=== PATIENT | female | born 1975 | race Caucasian/White ===

== ENCOUNTER 2019-11-30 09:17 | Outpatient (CLI) | payer MEDICARE, MEDICAID, SELFPAY ==
--- NOTE | 2019-11-30 09:36 | NM_ITS ---
WS: [id number] NUCLEAR MEDICINE THYROID UPTAKE AND SCAN HISTORY: SUBCLINICAL HYPERTHYROIDISM COMPARISON: None available. Radionucleotide: 133.6 uCi Iodine-123 sodium iodide capsule. Oral ingestion. Imaging performed at 24 hours post ingestion of capsule. Marker placed over the chin and suprasternal notch. Increased uptake throughout the large portion of the RIGHT thyroid. Most significant in the mid and l ower portion of the RIGHT thyroid lobe. This is asymmetric to the LEFT gland. Thyroid uptake at 24 hours: 24.4%. (Normal uptake at 24 hours 10-30%). NM/NM thyroid uptake multi [id number] IMPRESSION: 1. Normal thyroid uptake at 24.4%. 2. Suspicious for hyperfunctioning RIGHT thyroid nodule. Consider follow-up ul trasound for evaluation and characterization of a possible RIGHT thyroid nodule .
== END 2019-11-30 09:18 | disposition home or self-care (01) ==
LOC: RAD 09:23
PROVIDERS: Family Provider Family Medicine; PCP Family Medicine; Visit Provider Family Medicine
DX: E05.90 Thyrotoxicosis, unspecified without thyrotoxic crisis or storm (principal)
CPT/HCPCS: 78014; A9516

== ENCOUNTER 2019-11-30 13:39 | Outpatient (CLI) | payer MEDICARE, MEDICAID, SELFPAY ==
--- NOTE | 2019-11-30 13:53 | MM_ITS ---
WS: [id number] SCREENING DIGITAL MAMMOGRAM WITH CAD HISTORY: SCREENING COMPARISON: None available. Bilateral CC and MLO views submitted. Computer aided detection analyzed. Breast composition: The breasts are heterogeneously dense, which may obscure small masses. Irregular cluster of calcifications in the lateral LEFT breast near 3:00. These calcifications are partially ob scured need further evaluation. There are additional calcifications which are more benign within each breast. LEFT BREAST: Magnification views of suspicious calcification CC and MLO. True ML. Views MM/[place] [id number] IMPRESSION: BI-RADS: 0-Incomplete: Need additional imaging evaluation FOLLOW UP: Need Additional Imaging
== END 2019-11-30 13:40 | disposition home or self-care (01) ==
PROVIDERS: Family Provider Family Medicine; PCP Family Medicine; Visit Provider Family Medicine
DX: Z12.31 Encounter for screening mammogram for malignant neoplasm of breast (principal)
CPT/HCPCS: 77067

== ENCOUNTER 2019-12-07 09:33 | Outpatient (CLI) | payer MEDICARE, MEDICAID, SELFPAY ==
--- NOTE | 2019-12-07 10:47 | MM_ITS ---
WS: [id number] ADDITIONAL IMAGING LEFT DIGITAL MAMMOGRAM WITH CAD HISTORY: LT BREAST CALCIFICATION COMPARISON: 11/30/2019 Technique: ML view. Magnification views LEFT CC and MLO. Calcifications persist in the posterior LEFT breast at 12 and 3:00. Calcifications are more scattered than clustered. Calcifications are predominantly smooth and round. Favor these are probably benign b ut need to be evaluated in 6 months to document stability. MM/[place] [id number] IMPRESSION: BI-RADS: 3-Probably Benign FOLLOW UP: 6 Month Follow-up Follow-up LEFT breast imaging in 6 months recommended with magnification views to document stability.
== END 2019-12-07 09:34 | disposition home or self-care (01) ==
LOC: RADSHAW 09:38
PROVIDERS: Family Provider Family Medicine; PCP Family Medicine; Visit Provider Family Medicine
DX: R92.1 Mammographic calcification found on diagnostic imaging of breast (principal)
CPT/HCPCS: 77065

== ENCOUNTER 2020-01-04 12:23 | Emergency (ER) | payer MEDICARE, MEDICAID, SELFPAY ==
[2020-01-04 12:25] VITALS: BMI 27.3
[2020-01-04 12:30] VITALS: BP 158/107; PULSE 113; RESP 18; TEMP 36.9; O2SAT 94
== END 2020-01-04 15:24 | disposition left against medical advice (07) ==
LOC: ER 13:19
PROVIDERS: Emergency Provider Nurse Practitioner Family; Family Provider Family Medicine; PCP Family Medicine
DX: Z53.21 Procedure and treatment not carried out due to patient leaving prior to being seen by health care provider (principal)
CPT/HCPCS: 99281

== ENCOUNTER → 2020-02-17 10:31 | Outpatient (BNVA) | payer MEDICARE, MEDICAID, SELFPAY | PROVIDERS: Family Provider Family Medicine; PCP Family Medicine; Visit Provider Psychiatry & Neurology Psychiatry | DX: F33.41 Major depressive disorder, recurrent, in partial remission (principal); F43.12 Post-traumatic stress disorder, chronic; F15.21 Other stimulant dependence, in remission | CPT/HCPCS: 99213 ==

== ENCOUNTER → 2020-04-26 08:35 | Outpatient (BNVA) | payer MEDICARE, MEDICAID, SELFPAY | PROVIDERS: Family Provider Family Medicine; PCP Family Medicine; Visit Provider Psychiatry & Neurology Psychiatry | DX: F15.21 Other stimulant dependence, in remission (principal); F33.41 Major depressive disorder, recurrent, in partial remission; F43.12 Post-traumatic stress disorder, chronic | CPT/HCPCS: 99213 ==

== ENCOUNTER 2020-07-21 16:03 | Emergency (ER) | payer MEDICARE, MEDICAID, SELFPAY ==
[2020-07-21 16:23] VITALS: RESP 18
[2020-07-21 16:24] VITALS: BP 157/96; PULSE 90; RESP 14; TEMP 36.8; O2SAT 96
--- NOTE | 2020-07-21 16:35 | W.ED.NECK ---
HPI - Neck Pain/Injury General: Chief Complaint: Neck Pain/Injury Stated Complaint: neck pain Time Seen by Provider: 07/21/20 16:26 History of Present Illness: HPI Narrative: Patient woke up 2 nights ago with this spasm. Has history of 4 neck surgeries. Has good range of motion of her neck MD complaint: neck pain Onset (ago): day(s) Place: home Associated symptoms: Denies headache(s) or nausea Review of Systems Const: Denies: fever(s), chills or body aches Eyes: Denies: change in vision or blurry vision ENMT: Denies: throat pain or nasal congestion Card: Denies: chest pain or dyspnea on exertion Resp: Denies: dyspnea, productive cough or non-productive cough GI: Denies: abdominal pain, nausea or vomiting Musc: Reports: neck pain (Hurts in the right side feels like spasms feels tight denies any injury); Denies: extremity pain Skin/Breast: Denies: rash Neuro: Denies: headache(s) Psych: Denies: anxiety or depression Bhavin/Lymph: Denies: easy bruising PFSH ED PFSH: Social History Smoking and tobacco status: current every day smoker Physical Exam Const: COMMON NORMALS: no acute distress, average body habitus and patient oriented x3 HENMT: COMMON NORMALS: normocephalic HEAD & SCALP: normal to inspection and normocephalic FACE & SINUS: normal facial exam Eye: COMMON NORMALS: conjunctivae normal GENERAL EYE: appearance normal, both eyes and all related structures CONJUNCTIVA: Yes conjunctivae normal Neck/C-Spine: COMMON NORMALS: no JVD GENERAL: Yes other (Muscles tight on right side or trapezius attaches not spasming but does have some inflammation has good range of motion neck and arms no tingling or numbness no on the lower extremities) Chest: COMMONS NORMALS: normal inspection of the chest Resp: COMMON NORMALS: normal respiratory effort and clear to auscultation bilaterally AUSCULTATION: clear to auscultation bilaterally Cardio: COMMON NORMALS: no JVD, regular rate and regular rhythm RATE: regular rate RHYTHM: regular rhythm GI: COMMON NORMALS: Normal to inspection, nondistended, normoactive bowel sounds present Extremity: COMMON NORMALS: normal to inspection and full ROM Neuro: COMMON NORMALS: patient oriented x3 Course Vital Signs: Vital signs: Vital Signs Temperature 98.2 F 07/21/20 16:24 Pulse Rate 90 07/21/20 16:24 Respiratory Rate 14 07/21/20 16:24 Blood Pressure 157/96 07/21/20 16:24 Pulse Oximetry 96 07/21/20 16:24 Discharge Plan Discharge Patient Disposition: Home Clinical Impression: Torticollis Condition: Stable Prescriptions: New cyclobenzaprine 5 mg tablet 5 mg PO TID PRN (Reason: muscle spasm) Qty: 10 RF: 0 tramadol 50 mg tablet 50 mg PO TID PRN (Reason: pain) Qty: 10 RF: 0 No Action naproxen sodium [Aleve] 220 mg capsule 220 mg PO BID PRN (Reason: pain) RF: 0 prazosin 5 mg capsule 5 mg PO .HS Qty: 30 RF: 2 fluoxetine [Prozac] 20 mg capsule 60 mg PO DAILY Qty: 90 RF: 2 hydroxyzine HCl 50 mg tablet 50 mg PO TID Qty: 90 RF: 2 Belsomra 10 mg tablet 10 mg PO .HS Qty: 30 RF: 2 buspirone 10 mg tablet 20 mg PO BID Qty: 60 RF: 2 Discharge Orders: Discharge Order (Routine); Ordered 07/21/20 Ordered By: Solo Roper Referrals: Trevor Dean MD [Primary Care Provider] - Discharge Diet: Usual diet Discharge Activity: Increase activity as tolerated Patient Instructions: Muscle Spasm (ED) Activity Restrictions/Additional Instructions: Follow-up with medical provider as directed. Take medications as prescribed. Return to the ER or your medical provider if condition worsens. Please read and understand discharge instructions. If any questions ask please. Use moist heat and ice. Try get a massage done. 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
== END 2020-07-21 16:50 | disposition home or self-care (01) ==
PROVIDERS: Emergency Provider Nurse Practitioner Family; PCP Family Medicine
DX: M43.6 Torticollis (principal); F17.210 Nicotine dependence, cigarettes, uncomplicated
CPT/HCPCS: 12345; 99281; 99282

== ENCOUNTER 2020-07-23 19:11 | Emergency (ER) | payer MEDICARE, MEDICAID, SELFPAY ==
[2020-07-23 19:29] VITALS: BP 155/101; PULSE 86; RESP 17; TEMP 36.7; O2SAT 97; BMI 25.1
[2020-07-23 21:49] VITALS: BP 159/110; RESP 18
--- NOTE | 2020-07-23 21:58 | XR_ITS ---
WS: [id number] CERVICAL SPINE 3 VIEWS HISTORY: neck pain COMPARISON: 02/12/2017 There is extensive anterior cervical fusion and posterior cervical fusion hardware throughout the cer vical spine beginning at the C3 level through C7. No recent radiographs to evaluate for stability. Th e hardware appears intact. No lucency around the screws. Interbody spacers from C3-4 through C6-7. Soft tissues are normal. XR/XR cervical spine 3V* [id number] IMPRESSION: Extensive anterior and posterior cervical fusion hardware. No apparent complica tions.
[2020-07-23 22:10] LABS: Basophils # 0.1 10^3/uL (0.0-0.1); Basophils % 0.8 %; Eosinophils # 0.8 10^3/uL (0.0-0.8); Eosinophils % 5.8 %; Hematocrit 45.1 % (37.0-47.0); Hemoglobin 14.8 g/dL (11.5-15.3); Lymphocytes # 3.2 10^3/uL (0.8-4.8); Lymphocytes % 24.1 %; Mean Corpuscular HGB Conc 32.8 g/dL (30.0-36.0); Mean Corpuscular Hemoglobin 29.1 pg (28.0-34.0); Mean Corpuscular Volume 88.6 fL (81-99); Mean Platelet Volume 10.7 fL (7.4-10.4); Monocytes % 7.7 %; Neutrophils # 8.14 10^3/uL (1.8-7.7); Neutrophils % 61.1 %; Nucleated Red Blood Cells % 0 %; Platelet Count 339 10^3/cmm (130-400); Red Blood Count 5.09 10^6/uL (4.1-5.3); Red Cell Distribution Width 13.6 % (12.1-15.1); White Blood Count 13.3 10^3/uL (4.0-10.0)
[2020-07-23 22:35] LABS: Alanine Aminotransferase 23 U/L (0-33); Albumin Level 4.4 g/dL (3.5-5.2); Alkaline Phosphatase 70 IU/L (35-105); Anion Gap 13.7 (5-19); Aspartate Amino Transferase 15 U/L (0-32); Blood Urea Nitrogen 16 mg/dL (6-20); C Reactive Protein 0.5 mg/L (0.0-4.9); Calcium 8.9 mg/dL (8.5-10.5); Carbon Dioxide 28 mmol/L (22-29); Chloride 102 mmol/L (98-107); Globulin 2.7 g/dL (1.3-4.6); Glomerular Filtration Rate 76.9 mL/min (90-130); Glucose 94 mg/dL (65-115); Osmolality Calculated 284 mOsm/kg (285-295); Potassium 4.7 mmol/L (3.5-5.1); Sodium 139 mmol/L (136-145); Total Bilirubin 0.2 mg/dL (0.15-1.2); Total Protein 7.1 g/dL (6.6-8.7)
[2020-07-23 22:47] VITALS: RESP 18
[2020-07-23] MEDS: fentaNYL 50 mcg/mL INJ 2mL IVP (22:47)
[2020-07-23] MEDS: ketorolac 30 mg/mL INJ IVP (22:47)
[2020-07-23] MEDS: dexamethasone 4 mg/mL INJ 8 MG IVP (22:47)
[2020-07-23] MEDS: metoclopramide 5 mg/mL SDV 2 mL 10 MG IVP (22:48)
[2020-07-23 23:34] VITALS: BP 130/87; O2SAT 95
--- NOTE | 2020-07-24 00:25 | W.ED.NECK ---
HPI - Neck Pain/Injury General: Chief Complaint: Neck Pain/Injury Stated Complaint: neck pain/ was here thurs/ had neck surg Time Seen by Provider: 07/23/20 21:04 History of Present Illness: HPI Narrative: 45-year-old female with a history of cervical fusion last year. She presents with pain at the superior portion of her neck above her incision for the past several days. She was seen a couple of days ago and given medication which she says has not really helped. She states it has caused a significant headache, which she gets from time to time, but not this severe. She notes radiation of the pain into her right upper extremity, with some numbness and tingling to her pinky. She denies any fever. No chills or sweats at night. MD complaint: neck pain Onset (ago): day(s) Place: home Radiation: upper back and right upper extremity Severity: moderate Associated symptoms: Reports headache(s); Denies dizziness or nausea Review of Systems Const: Denies: fever(s) or chills Eyes: Reports: blurry vision; Denies: change in vision ENMT: Denies: swelling of lips/tongue, change in hearing, epistaxis or sinus pain Card: Denies: chest pain, palpitations or irregular heart rhythm Resp: Denies: dyspnea, productive cough, non-productive cough or wheezing GI: Denies: abdominal pain, nausea, vomiting or rectal pain : Denies: dysuria or hematuria Musc: Denies: neck pain or back pain Skin/Breast: Denies: rash or erythema Neuro: Reports: headache(s); Denies: dizziness, vertigo or confusion Psych: Denies: anxiety PFS ED PFSH: Social History Smoking and tobacco status: current every day smoker Physical Exam Const: GENERAL APPEARANCE: well developed ORIENTATION/CONSCIOUSNESS: Yes oriented to person, Yes oriented to place and Yes oriented to time HENMT: COMMON NORMALS: normocephalic, external ears normal and Normal external nose present HEAD & SCALP: normocephalic FACE & SINUS: normal facial exam NOSE: Normal external nose present and No nasal discharge present EXTERNAL EAR: Yes external ears normal Eye: COMMON NORMALS: Equal, round and reactive pupils present, EOMs intact bilaterally and conjunctivae normal EYELID: eyelids normal CONJUNCTIVA: Yes conjunctivae normal PUPIL: Yes Equal, round and reactive pupils present Neck/C-Spine: COMMON NORMALS: full ROM GENERAL: No tracheal deviation CERVICAL SPINE: Yes Cervical spine tenderness and Yes other (Some paravertebral tenderness on the right at C1-C2-C3. This is above her incision. No incisional tenderness. No midline tenderness.) Chest: COMMONS NORMALS: normal inspection of the chest CHEST: No tenderness Resp: COMMON NORMALS: clear to auscultation bilaterally EFFORT & INSPECTION: No tachypneic, No respiratory distress, No retractions, No uses accessory muscles and No tracheal deviation AUSCULTATION: clear to auscultation bilaterally, no rhonchi, no wheezes and lung sounds not diminished Cardio: COMMON NORMALS: regular rate and regular rhythm RATE: regular rate RHYTHM: regular rhythm HEART SOUNDS: no murmurs PERIPHERAL PULSES: radial pulses present GI: INSPECTION: No abdominal distension AUSCULTATION: No Hyperactive bowel sounds present and No Hypoactive bowel sounds present PALPATION: No Guarding due to palpation present (GI) and No Rigid due to palpation PERCUSSION: no dullness to percussion and no tympanic to percussion Neuro: SENSORIUM/ORIENTATION: Yes oriented to person, Yes oriented to place and Yes oriented to time Psych: COMMON NORMALS: mental status grossly normal Skin: COMMON NORMALS: no rashes or lesions noted GENERAL SKIN EXAM: no rashes or lesions noted Course Vital Signs: Vital signs: Vital Signs Temperature 98.0 F 07/23/20 19:29 Pulse Rate 86 07/23/20 19:29 Respiratory Rate 18 07/23/20 22:47 Blood Pressure 130/87 07/23/20 23:34 Pulse Oximetry 95 07/24/20 00:32 MDM - Neck Pain/Injury MDM Narrative: Medical decision making narrative: White blood cell count is mildly elevated, but the CRP is negative. No signs of infection by exam. X-ray reveals intact hardware. Lab Data: Attestation: I reviewed the patient's lab results. Labs: Lab Results 07/23/20 07/23/20 Range/Units 22:05 22:05 WBC 13.3 H (4.0-10.0) 10^3/ uL RBC 5.09 (4.1-5.3) 10^6/u L Hgb 14.8 (11.5-15.3) g/dL Hct 45.1 (37.0-47.0) % MCV 88.6 (81-99) fL MCH 29.1 (28.0-34.0) pg MCHC 32.8 (30.0-36.0) g/dL RDW 13.6 (12.1-15.1) % Plt Count 339 (130-400) 10^3/c mm MPV 10.7 H (7.4-10.4) fL Neut % (Auto) 61.1 % Lymph % (Auto) 24.1 % [place] % (Auto) 7.7 % Eos % (Auto) 5.8 % Baso % (Auto) 0.8 % Neut # (Auto) 8.14 H (1.8-7.7) 10^3/u L Lymph # (Auto) 3.2 (0.8-4.8) 10^3/u L [place] # (Auto) 1.0 H (0.2-0.9) 10^3/u L Eos # (Auto) 0.8 (0.0-0.8) 10^3/u L Baso # (Auto) 0.1 (0.0-0.1) 10^3/u L Nucleated RBC % (a uto) 0 % Nucleated RBCs # 0.0 /100WBC Sodium 139 (136-145) mmol/L Potassium 4.7 (3.5-5.1) mmol/L Chloride 102 (98-107) mmol/L Carbon Dioxide 28 (22-29) mmol/L Anion Gap 13.7 (5-19) BUN 16 (6-20) mg/dL Creatinine 0.8 (0.5-0.9) mg/dL GFR Calculation 76.9 L (90-130) mL/min Glucose 94 (65-115) mg/dL Calculated Osmolal ity 284 L (285-295) mOsm/k g Calcium 8.9 (8.5-10.5) mg/dL Total Bilirubin 0.2 (0.15-1.2) mg/dL AST 15 (0-32) U/L ALT 23 (0-33) U/L Alkaline Phosphata se 70 (35-105) IU/L C-Reactive Protein 0.5 (0.0-4.9) mg/L Total Protein 7.1 (6.6-8.7) g/dL Albumin 4.4 (3.5-5.2) g/dL Globulin 2.7 (1.3-4.6) g/dL Discharge Plan Discharge Patient Disposition: Home Clinical Impression: Cervical radiculopathy Condition: Stable Prescriptions: [place] 5-325 mg tablet 1 tab PO Q6H PRN (Reason: pain) Qty: 10 RF: 0 Medrol (Ba) 4 mg tablets,dose pack See Rx Instructions .ROUTE .COMPLEX Qty: 21 RF: 0 No Action naproxen sodium [Aleve] 220 mg capsule 220 mg PO BID PRN (Reason: pain) RF: 0 prazosin 5 mg capsule 5 mg PO .HS Qty: 30 RF: 2 fluoxetine [Prozac] 20 mg capsule 60 mg PO DAILY Qty: 90 RF: 2 hydroxyzine HCl 50 mg tablet 50 mg PO TID Qty: 90 RF: 2 Belsomra 10 mg tablet 10 mg PO .HS Qty: 30 RF: 2 buspirone 10 mg tablet 20 mg PO BID Qty: 60 RF: 2 cyclobenzaprine 5 mg tablet 5 mg PO TID PRN (Reason: muscle spasm) Qty: 10 RF: 0 tramadol 50 mg tablet 50 mg PO TID PRN (Reason: pain) Qty: 10 RF: 0 Referrals: Trevor Dean MD [Primary Care Provider] - 4-7 days Discharge Diet: Advance as tolerated Discharge Activity: Increase activity as tolerated Patient Instructions: Cervical Radiculopathy (ED) Activity Restrictions/Additional Instructions: Return for fever greater than 100, worsening pain despite treatment, progressive weakness, other concerning symptoms. Discharge Date/Time: 07/24/20 00:41 Coding Level of Care Code ED General Office Worker for Sachin Lozada
[2020-07-24 00:32] VITALS: O2SAT 95
[2020-07-24 00:34] VITALS: BP 142/104
== END 2020-07-24 00:41 | disposition home or self-care (01) ==
PROVIDERS: Emergency Provider Emergency Medicine; PCP Family Medicine
DX: M54.12 Radiculopathy, cervical region (principal); F17.210 Nicotine dependence, cigarettes, uncomplicated
CPT/HCPCS: 12345; 72040; 80053; 85025; 86140; 96374; 96375; 99281; 99283; J1100; J1885; J2765; J3010

== ENCOUNTER → 2020-08-24 07:46 | Outpatient (BNVA) | payer MEDICARE, MEDICAID, SELFPAY | PROVIDERS: PCP Family Medicine; Visit Provider Psychiatry & Neurology Psychiatry | DX: F15.21 Other stimulant dependence, in remission (principal); F33.41 Major depressive disorder, recurrent, in partial remission; F43.12 Post-traumatic stress disorder, chronic | CPT/HCPCS: 99213 ==

== ENCOUNTER → 2020-12-27 09:37 | Outpatient (BNVA) | payer MEDICARE, MEDICAID, SELFPAY | PROVIDERS: PCP Family Medicine; Visit Provider Psychiatry & Neurology Psychiatry | DX: F43.12 Post-traumatic stress disorder, chronic (principal); F15.21 Other stimulant dependence, in remission; F33.41 Major depressive disorder, recurrent, in partial remission | CPT/HCPCS: 99213 ==

== ENCOUNTER → 2021-01-12 12:53 | Outpatient (BNVA) | payer MEDICARE, MEDICAID, SELFPAY | PROVIDERS: PCP Family Medicine; Visit Provider Podiatrist Foot & Ankle Surgery | DX: M20.41 Other hammer toe(s) (acquired), right foot (principal); M79.671 Pain in right foot | CPT/HCPCS: 73630 ==

== ENCOUNTER → 2021-03-09 13:15 | Outpatient (BNVA) | payer MEDICARE, MEDICAID, SELFPAY | PROVIDERS: PCP Family Medicine; Visit Provider Nurse Practitioner | DX: N39.0 Urinary tract infection, site not specified (principal) | CPT/HCPCS: 81000 ==

== ENCOUNTER → 2021-03-17 11:22 | Outpatient (BNVA) | payer MEDICARE, MEDICAID, SELFPAY | PROVIDERS: PCP Family Medicine; Visit Provider Podiatrist Foot & Ankle Surgery | DX: Z01.812 Encounter for preprocedural laboratory examination (principal); Z20.822 Contact with and (suspected) exposure to COVID-19 | CPT/HCPCS: 87635 ==

== ENCOUNTER 2021-03-24 05:35 | Day surgery (SDC) | payer MEDICARE, MEDICAID, SELFPAY ==
[2021-03-23 15:59] VITALS: BMI 27.8
[2021-03-24] VITALS (8 sets, daily range): BP systolic 137–193; BP diastolic 92–111; PULSE 72–84; RESP 16–26; TEMP 36.6–36.8; O2SAT 94–96
--- NOTE | 2021-03-24 | SCC_ITS ---
Procedure Done: Tailor's bunionectomy right foot CPT code 80026. 49 seconds of fluoroscopic guidance, for a cumulative dose of 0.62 mGy, was provided to Dr. Yoder by the radiology department. C-arm images of the RIGHT foot were saved for the patient's permanent record. [facility]
--- NOTE | 2021-03-24 06:33 | P.OP_ITS ---
Operative Report Date of procedure: March 24, 2021 Pre-op Diagnosis: Tailor's bunion and hammertoe right foot Post-op diagnosis: same Procedure Done: Tailor's bunionectomy right foot CPT code 18455. Right fifth hammertoe correction CPT code 52483 Implants: [place] snap off screws 13 mm and 14 mm, 3-0 Vicryl, 4-0 Vicryl and 4- 0 nylon Surgeon: Vishal Yoder D.P.M. Park Activities Coordinator: Abhi Anesthesia: MAC Estimated blood loss: Less than 5 mL Tourniquet time: See intraoperative documentation IV fluids: None Urine output: None Condition: stable Disposition: PACU Brief History: Patient has had a progression of deformity of her tailbone and right foot as well as painful lesion within the webspace of her right foot fourth webspace. Has been undergoing debridements, padding and toe sleeves, accommodative shoes with wide toe box without relief would like to discuss surgical options. Recommended tennis bunionectomy and hammertoe correction with possible exostectomy. Risks include pain, bleeding, numbness, infection, hardware irritation, hardware failure, delayed union, malunion, nonunion, overcorrection deformity, recurrence of deformity, failure to alleviate pain and chronic swelling as well as hyperparesthesias. Patient is agreeable wishes to proceed has been n.p.o. since midnight. Informed consent signed. Initial patient's right foot. She is wishing to proceed. Procedure: Under mild sedation the patient was brought to the operating room and placed on operating table in supine position. Timeout was performed. Anesthesia was then administered by the anesthesia service. Local anesthesia was of 30 cc of one-to-one mixture 2% lidocaine and 1 Marcaine Plain and a Reverse Rodriguez Block Fashion. Well-Padded Pneumatic Tourniquet Applied to the Right Ankle. Right Lower Extremity Were Then Scrubbed, Prepped and Draped Utilizing Normal Aseptic Technique. Right Foot Was Attenuated and Tourniquet Inflated to 250 mmHg. Attention was directed to the lateral aspect of the right fifth metatarsal plantar joint where a linear longitudinal skin was made lateral and parallel to the extensor tendon and at the dorsal aspect of the metatarsophalangeal joint. Dissection carried down to level of joint capsule utilizing accommodation of sharp and blunt technique. Care was taken to retract and preserve neurovascular and tendinous structures. Bleeders were ligated and cauterized as necessary. Linear capsulotomy is performed as well as freeing of the periosteum of the fifth metatarsal head laterally. Exostectomy/lateral osseous prominence was transected with a sagittal saw followed by oblique osteotomy oriented distal lateral to proximal medial the fifth metatarsal head was translated medially and slightly proximally and fixated utilizing Ciro snap off screws 13 and 14 mm in length with excellent bony apposition and compression noted and position confirmed with fluoroscopy. Remaining shelf was removed utilizing sagittal saw and all rough edges smoothed with a rasp. Incision was flushed with saline solution. The transverse deformity of the right fifth toe and sagittal plane contracture remained however the transverse plane deformity was semireduced after the tailor's bunionectomy. A lateral capsulotomy was performed/release along with a Z-plasty of the extensor tendon addressing the transverse and sagittal plane component that was fully reduced at this time of the right fifth toe. The Z- plasty of the extensor tendon was secured utilizing 4-0 Vicryl. The incision sites were flushed with saline solution and periosteum closed utilizing 3-0 Vicryl. Subcutaneous tissue reapproximated utilizing 4-0 Vicryl with care taken to protect the neurovascular bundle. Skin was then closed utilizing 4-0 nylon in a running interlocking fashion. Tourniquet was deflated and a prompt hyperemic response was noted to the distal digits of the right foot. Intraoperative anoscopy confirmed reduction deformity and placement of hardware to be appropriate. Incision sites were dressed with Adaptic, sterile 4 x 4, Kerlix, Mikey wrap and cam boot was applied. Tourniquet was deflated and a prompt hyperemic response was noted to the distal digits of the right foot. Patient tolerated the procedure and anesthesia well transferred to the PACU vital signs stable vascular status intact. She may be weightbearing as tolerated in the cam boot. She is to elevate her right foot all times while at rest. She was prescribed pain medication be taken judiciously as needed for pain. Follow-up next body for nurse visit dressing change.
--- NOTE | 2021-03-24 06:33 | W.PM.OPSUD ---
Surgery/Procedure H&P Update DATE OF PROCEDURE: March 24, 2021 DATE H&P PERFORMED: 03/15/21 H&P UPDATE INFORMATION: I have reviewed H&P completed within last 30 days, I have examined patient prior to procedure, No changes to prior documentation and H&P is in [facility] EMR on date indicated PREOP DIAGNOSIS: Tailor's bunion and hammertoe right foot PLANNED PROCEDURE: Operation Date: 03/24/21 07:00 Proposed Procedures p Bunionectomy Ela [id number] M20.41 M21.621(Right) - Vishal Yoder DPM s Hammertoe Correction fifth correction(Right) - SHAHEEN Cordon Exostectomy of fourth and fifth toes all rigth foot(Right) - Vishal Yoder DPM
--- NOTE | 2021-03-24 06:47 | ANES.PREANE2 ---
Pre-Anesthetic Assessment Pre-Anesthetic Assessment: Height/Weight: Height 1.74 m Weight 84.368 kg Preop Diagnosis: [place]os bunion and hammertoe right foot Proposed Procedure: Operation Date: 03/24/21 07:00 Proposed Procedures p Bunionectomy Ela [id number] M20.41 M21.621(Right) - Vishal Yoder DPM s Hammertoe Correction fifth correction(Right) - Vishal Yoder DPM s Exostectomy of fourth and fifth toes all rigth foot(Right) - Vishal Yoder DPM Familial anesthetic complications: None Was Beta Marta taken within 24 hours: N/A Was Clonidine taken within 24 hours: N/A Last intake: Intake Last Liquid Date 03/23/21 Last Liquid Time 21:00 Last Solid Date 03/23/21 Last Solid Time 21:00 Social: Social History: Tobacco and No alcohol Exam: Pre-Anes Outpt Exam: alert, oriented x 3, clear to auscultation bilaterally and regular rate & rhythm Airway: Cervical ROM: WNL MP: 2 Dentition: Full Metabolic: Metabolic: Thyroid Neuropsych: Neuropsych: Anxiety Anesthetic Plan: ASA status: 2 Anesthesia: MAC Risk of > 500 ml blood loss (7ml/kg in children): No Other Pertinent Information: Having some nausea, if not improved before induction, may require general anesthesia PFSH Anesthesia PFSH: Medical History Breast mass in female Thyroid disease Surgical History H/O neck surgery H/O: hysterectomy Family History Other Cancer Diabetes Hyperlipidemia Hypertension Denies family history of CAD (coronary artery disease) Clotting disorder Dementia Psychiatric illness Chronic kidney disease (CKD) Suicide Anesthesia complication Bleeding disorder Family history of premature coronary artery disease Lung disease Stroke Social History Smoking and tobacco status: current every day smoker Alcohol intake: never Household members: none Data Anesthesia Cardiac Studies: No Data to Display
[2021-03-24] MEDS: sodium chloride 0.9% 1,000 ML 30 ML IV (06:50)
[2021-03-24] MEDS: midazolam 1 mg/mL INJ 2 mL 2 MG IVP (06:50)
[2021-03-24] MEDS: clindamycin 600 MG/50 ML PREMIX 100 MG IV (06:57)
[2021-03-24] MEDS: lidocaine 2% INJ 20 mL INJECTION (07:28)
--- NOTE | 2021-03-24 08:25 | XR_ITS ---
WS: [id number] Exam: XR foot RT min 3V* [id number] Date/Time of Exam: 03/24/2021 8:29 AM Reason For Exam: post op Comparison 01/12/2021. An osteotomy is noted at the distal end of the fifth metatarsal with the screw fixation. No other pos toperative changes of the foot are noted. The foot and ankle are stabilized within a splint. XR/XR foot RT min 3V* [id number] IMPRESSION: 1. Postoperative changes of distal fifth metatarsal osteotomy with internal fix ation.
--- NOTE | 2021-03-24 09:30 | SUR.PHASEII ---
pt stated she would follow-up with her primary dr regarding her elevated blood pressure,stated her blood pressure has been elevated before,boyfriend elicia gaspar at beside and verbalized understanding
--- NOTE | 2021-03-24 12:56 | ANE.PACU2 ---
Inpatient post-anesthesia follow up: Airway intact: Yes Vital signs: Temperature 98 F Pulse Rate 72 Respiratory Rate 16 Blood Pressure 140/100 Pulse Oximetry 95 Oxygen Delivery Me thod Room Air Oxygen Flow Rate Fraction of Inspir ed Oxygen Hydration adequate: Yes Nausea and vomiting: No Pain level: 2 Mental status: Baseline
== END 2021-03-24 09:15 | disposition home or self-care (01) ==
PROVIDERS: PCP Family Medicine; Visit Provider Podiatrist Foot & Ankle Surgery
PROC: 0QBP0ZZ Excision of Left Metatarsal, Open Approach (ICD-10-PCS; CPT 28110; principal; 2021-03-24 07:00)
DX: M21.621 Bunionette of right foot (principal); M20.41 Other hammer toe(s) (acquired), right foot; F41.9 Anxiety disorder, unspecified; F17.210 Nicotine dependence, cigarettes, uncomplicated
CPT/HCPCS: 28285; 28308; 73630; 76000; 96365; 96374; C1713; J2250; J2704; J3010; J3490; J7030

== ENCOUNTER → 2021-03-31 10:43 | Outpatient (BNVA) | payer MEDICARE, MEDICAID, SELFPAY | PROVIDERS: PCP Family Medicine; Visit Provider Podiatrist Foot & Ankle Surgery | DX: Z98.890 Other specified postprocedural states (principal) | CPT/HCPCS: 73630 ==

== ENCOUNTER → 2021-04-06 11:16 | Outpatient (BNVA) | payer MEDICARE, MEDICAID, SELFPAY | PROVIDERS: PCP Family Medicine; Visit Provider Podiatrist Foot & Ankle Surgery | DX: Z98.890 Other specified postprocedural states (principal) | CPT/HCPCS: 73630 ==

== ENCOUNTER → 2021-04-20 07:56 | Outpatient (BNVA) | payer MEDICARE, MEDICAID, SELFPAY | PROVIDERS: PCP Family Medicine; Visit Provider Podiatrist Foot & Ankle Surgery | DX: Z98.890 Other specified postprocedural states (principal); M21.621 Bunionette of right foot | CPT/HCPCS: 73630 ==

== ENCOUNTER → 2021-05-04 08:30 | Outpatient (BNVA) | payer MEDICARE, MEDICAID, SELFPAY | PROVIDERS: PCP Family Medicine; Visit Provider Podiatrist Foot & Ankle Surgery | DX: Z98.890 Other specified postprocedural states (principal) | CPT/HCPCS: 73630 ==

== ENCOUNTER → 2021-05-23 14:22 | Outpatient (BNVA) | payer MEDICARE, MEDICAID, SELFPAY | PROVIDERS: PCP Family Medicine; Visit Provider Podiatrist Foot & Ankle Surgery | DX: Z98.890 Other specified postprocedural states (principal) | CPT/HCPCS: 73630 ==

== ENCOUNTER → 2021-06-29 14:46 | Outpatient (BNVA) | payer MEDICARE, MEDICAID, SELFPAY | PROVIDERS: PCP Family Medicine; Visit Provider Podiatrist Foot & Ankle Surgery | DX: Z98.890 Other specified postprocedural states (principal); Z48.89 Encounter for other specified surgical aftercare; M21.621 Bunionette of right foot; M20.41 Other hammer toe(s) (acquired), right foot | CPT/HCPCS: 73630 ==

== ENCOUNTER 2021-07-18 10:08 | Emergency (ER) | payer MEDICARE, MEDICAID, SELFPAY ==
[2021-07-18 10:17] VITALS: BP 137/107; PULSE 81; RESP 22; TEMP 36.7; O2SAT 95
--- NOTE | 2021-07-18 10:47 | XR_ITS ---
WS: [id number] Exam: XR chest 1V portable [id number] Date/Time of Exam: 07/18/2021 10:47 AM Reason For Exam: CP Comparison 09/24/2015. The lungs are fully expanded and clear. Normal cardiomediastinal silhouette. No pleural effusions. Th ere is hardware in the lower cervical spine. XR/XR chest 1V portable [id number] IMPRESSION: 1. No acute cardiopulmonary finding.
[2021-07-18 11:16] LABS: Basophils # 0.1 10^3/uL (0.0-0.1); Eosinophils # 0.8 10^3/uL (0.0-0.8); Eosinophils % 7.5 %; Hematocrit 46.3 % (37.0-47.0); Hemoglobin 15.4 g/dL (11.5-15.3); Lymphocytes # 3.2 10^3/uL (0.8-4.8); Lymphocytes % 29.6 %; Mean Corpuscular HGB Conc 33.3 g/dL (30.0-36.0); Mean Corpuscular Volume 87.2 fl (81-99); Mean Platelet Volume 10.9 fL (7.4-10.4); Monocytes % 9.8 %; Neutrophils # 5.49 10^3/uL (1.8-7.7); Neutrophils % 51.7 %; Nucleated Red Blood Cells % 0 %; Platelet Count 298 10^3/cmm (130-400); Red Blood Count 5.31 10^6/uL (4.1-5.3); Red Cell Distribution Width 14.1 % (12.1-15.1); White Blood Count 10.6 10^3/uL (4.0-10.0)
[2021-07-18 11:37] LABS: Alanine Aminotransferase 10 U/L (0-33); Albumin Level 4.4 g/dL (3.5-5.2); Alkaline Phosphatase 64 IU/L (35-105); Anion Gap 13.4 (5-19); Aspartate Amino Transferase 11 U/L (0-32); Blood Urea Nitrogen 13 mg/dL (6-20); Carbon Dioxide 25 mmol/L (22-29); Chloride 103 mmol/L (98-107); Globulin 2.1 g/dL (1.3-4.6); Glomerular Filtration Rate 106.7 mL/min (90-130); Glucose 83 mg/dL (65-115); Lipase 28 U/L (13-60); Osmolality Calculated 283 mOsm/kg (285-295); Potassium 4.4 mmol/L (3.5-5.1); Sodium 137 mmol/L (136-145); Total Bilirubin 0.9 mg/dL (0.15-1.2); Total Protein 6.5 g/dL (6.6-8.7)
[2021-07-18 11:41] LABS: Troponin(5th) Baseline 6 ng/L (0-10)
--- NOTE | 2021-07-18 11:54 | W.ED.CHESTPA ---
HPI - Chest Pain General: Chief Complaint: Chest Pain Stated Complaint: CP - RADIATING THROUGH TO BACK Time Seen by Provider: 07/18/21 11:53 History of Present Illness: HPI narrative: Patient is a 46-year-old female comes to the ED with chest pain. Chest pain started this morning when she was sitting and at rest. Pain starts at the middle part of chest and then radiates to her back. She rates the pain currently an 8 out of 10. Denies any improving or worsening factors. Patient says she has a history of stress and panic attacks. She says this does not feel like a past panic attack. She says her back pain feels more muscular cause and not related to the chest pain and states that it gets worse with certain movements denies any diaphoresis, fever, chills, nausea/vomiting, abdominal pain, bladder or bowel symptoms. Associated symptoms: Deny abdominal pain, dyspnea, fever(s), nausea, palpitations or vomiting Review of Systems Const: Denies: fever(s), chills or fatigue Eyes: Denies: change in vision or eye discomfort ENMT: Denies: throat pain, odynophagia, nasal discharge or nasal congestion Card: Reports: chest pain; Denies: palpitations, edema, swelling of feet/ankles, dyspnea on exertion or orthopnea Resp: Denies: dyspnea, productive cough or non-productive cough GI: Denies: abdominal pain, nausea, vomiting, diarrhea, constipation or hematochezia : Denies: flank pain, dysuria or hematuria Musc: Reports: back pain; Denies: neck pain or extremity swelling Skin/Breast: Denies: rash or new lesions Neuro: Denies: headache(s), numbness in extremities or weakness in extremities PFSH ED PFSH: Medical History Breast mass in female Thyroid disease Surgical History H/O neck surgery H/O: hysterectomy Family History Other Cancer Diabetes Hyperlipidemia Hypertension Denies family history of CAD (coronary artery disease) Clotting disorder Dementia Psychiatric illness Chronic kidney disease (CKD) Suicide Anesthesia complication Bleeding disorder Family history of premature coronary artery disease Lung disease Stroke Social History Alcohol intake: never Household members: none Physical Exam Const: COMMON NORMALS: no acute distress, patient oriented x3 and alert GENERAL APPEARANCE: cooperative and comfortable HENMT: COMMON NORMALS: normocephalic HEAD & SCALP: normocephalic MOUTH: Normal oral and palatal mucosa present THROAT: posterior oropharynx normal and uvula midline Neck/C-Spine: COMMON NORMALS: supple GENERAL: Yes normal visual inspection Resp: COMMON NORMALS: normal respiratory effort, No retractions, No use of accessory muscles and clear to auscultation bilaterally AUSCULTATION: clear to auscultation bilaterally Cardio: COMMON NORMALS: regular rate, regular rhythm, S1 normal heart sound present, S2 normal heart sound present, No gallops present (Cardio), No clicks present (Cardio), No murmurs present (Cardio) and Peripheral pulses 2+ throughout RATE: regular rate RHYTHM: regular rhythm HEART SOUNDS: S1 normal heart sound present and S2 normal heart sound present PERIPHERAL PULSES: Peripheral pulses 2+ throughout GI: COMMON NORMALS: Normal to inspection, nondistended, normoactive bowel sounds present, Soft to palpation, non-tender and no masses PALPATION: Yes Soft to palpation : COMMON NORMALS: Yes no CVA tenderness BLADDER/KIDNEY EXAM: Yes no CVA tenderness Back/Pelvis: COMMON NORMALS: no CVA tenderness THORACIC SPINE/UPPER BACK: No thoracic spinal tenderness and Yes paraspinal muscle tenderness Thoracic paraspinal muscle tenderness: bilateral Bilateral thoracic paraspinal muscle tenderness: T4 and T5 Extremity: COMMON NORMALS: normal to inspection Neuro: COMMON NORMALS: patient oriented x3 and moves all extremities SENSORIUM/ORIENTATION: Yes alert Skin: GENERAL SKIN EXAM: dry skin Course Vital Signs: Vital signs: Vital Signs Temperature 98 F 07/18/21 12:03 Pulse Rate 72 07/18/21 13:56 Respiratory Rate 15 07/18/21 13:56 Blood Pressure 154/93 07/18/21 13:56 Pulse Oximetry 98 07/18/21 13:56 MDM - Chest Pain MDM Narrative: Medical decision making narrative: Patient is a 46-year-old female comes in the ED with chest pain and back pain. She has a history of anxiety and panic attacks. Vitals are stable. Exam shows a healthy nontoxic appearing patient in no acute distress. Rest of exam is benign. Patient did have some muscular tenderness thoracic back where she was reporting her back pain. CBC, CMP and lipase were unremarkable. Chest x-ray showed no acute findings. EKG's showed normal sinus rhythm no signs of AR. Baseline and 2 hour troponin negative. Patient was given morphine and aspirin here in the ED. Chest pain resolved back pain improved. She was given a dose of Toradol here in the ED as well. Heart score less than 3. patient diagnosed with noncardiac chest pain and musculoskeletal back pain. She was discharged home with a prescription for cyclobenzaprine and Celebrex. Return to ED precautions given. Follow-up with PCP in 7 to 10 days reevaluation. Patient understood and agreed with plan. Lab Data: Attestation: I reviewed the patient's lab results. Labs: Lab Results 07/18/21 07/18/21 07/18/21 Range/Units 11:04 11:04 11:04 WBC 10.6 H (4.0-10.0) 10^3/ uL RBC 5.31 H (4.1-5.3) 10^6/u L Hgb 15.4 H (11.5-15.3) g/dL Hct 46.3 (37.0-47.0) % MCV 87.2 (81-99) fl MCH 29.0 (28.0-34.0) pg MCHC 33.3 (30.0-36.0) g/dL RDW 14.1 (12.1-15.1) % Plt Count 298 (130-400) 10^3/c mm MPV 10.9 H (7.4-10.4) fL Neut % (Auto) 51.7 % Lymph % (Auto) 29.6 % Hemphill % (Auto) 9.8 % Eos % (Auto) 7.5 % Baso % (Auto) 1.0 % Neut # (Auto) 5.49 (1.8-7.7) 10^3/u L Lymph # (Auto) 3.2 (0.8-4.8) 10^3/u L Hemphill # (Auto) 1.0 H (0.2-0.9) 10^3/u L Eos # (Auto) 0.8 (0.0-0.8) 10^3/u L Baso # (Auto) 0.1 (0.0-0.1) 10^3/u L Nucleated RBC % (a uto) 0 % Nucleated RBCs # 0.0 /100WBC Sodium 137 (136-145) mmol/L Potassium 4.4 (3.5-5.1) mmol/L Chloride 103 (98-107) mmol/L Carbon Dioxide 25 (22-29) mmol/L Anion Gap 13.4 (5-19) BUN 13 (6-20) mg/dL Creatinine 0.6 (0.5-0.9) mg/dL GFR Calculation 106.7 (90-130) mL/min Glucose 83 (65-115) mg/dL Calculated Osmolal ity 283 L (285-295) mOsm/k g Calcium 9.0 (8.5-10.5) mg/dL Total Bilirubin 0.9 (0.15-1.2) mg/dL AST 11 (0-32) U/L ALT 10 (0-33) U/L Alkaline Phosphata se 64 (35-105) IU/L Troponin T Baselin e 6 (0-10) ng/L Troponin T 120 Min piper (0-10) ng/L Delta Troponin T (0-10) ABS# Total Protein 6.5 L (6.6-8.7) g/dL Albumin 4.4 (3.5-5.2) g/dL Globulin 2.1 (1.3-4.6) g/dL Lipase 28 (13-60) U/L Urine Color (Yellow) Urine Appearance (CLEAR) Urine pH (5-7) Ur Specific Gravit y (1.005-1.030) Urine Protein (Negative) Urine Glucose (UA) (Normal) Urine Ketones (Negative) Urine Blood (Negative) Urine Nitrate (Negative) Urine Bilirubin (Negative) Urine Urobilinogen (Negative) mg/dL Ur Leukocyte Dina ase (Negative) Urine RBC (0-2) /hpf Urine WBC (0-5) /hpf Ur Squamous Epith Cells (0-5) /hpf Amorphous Sediment Urine Bacteria (NONE) /hpf 07/18/21 07/18/21 Range/Units 11:23 13:02 WBC (4.0-10.0) 10^3/ uL RBC (4.1-5.3) 10^6/u L Hgb (11.5-15.3) g/dL Hct (37.0-47.0) % MCV (81-99) fl MCH (28.0-34.0) pg MCHC (30.0-36.0) g/dL RDW (12.1-15.1) % Plt Count (130-400) 10^3/c mm MPV (7.4-10.4) fL Neut % (Auto) % Lymph % (Auto) % Hemphill % (Auto) % Eos % (Auto) % Baso % (Auto) % Neut # (Auto) (1.8-7.7) 10^3/u L Lymph # (Auto) (0.8-4.8) 10^3/u L Hemphill # (Auto) (0.2-0.9) 10^3/u L Eos # (Auto) (0.0-0.8) 10^3/u L Baso # (Auto) (0.0-0.1) 10^3/u L Nucleated RBC % (a uto) % Nucleated RBCs # /100WBC Sodium (136-145) mmol/L Potassium (3.5-5.1) mmol/L Chloride (98-107) mmol/L Carbon Dioxide (22-29) mmol/L Anion Gap (5-19) BUN (6-20) mg/dL Creatinine (0.5-0.9) mg/dL GFR Calculation (90-130) mL/min Glucose (65-115) mg/dL Calculated Osmolal ity (285-295) mOsm/k g Calcium (8.5-10.5) mg/dL Total Bilirubin (0.15-1.2) mg/dL AST (0-32) U/L ALT (0-33) U/L Alkaline Phosphata se (35-105) IU/L Troponin T Baselin e (0-10) ng/L Troponin T 120 Min piper 6.00 (0-10) ng/L Delta Troponin T 0 (0-10) ABS# Total Protein (6.6-8.7) g/dL Albumin (3.5-5.2) g/dL Globulin (1.3-4.6) g/dL Lipase (13-60) U/L Urine Color Yellow (Yellow) Urine Appearance Hazy A (CLEAR) Urine pH 8 H (5-7) Ur Specific Gravit y 1.010 (1.005-1.030) Urine Protein Neg (Negative) Urine Glucose (UA) Norm (Normal) Urine Ketones Negative (Negative) Urine Blood Neg (Negative) Urine Nitrate Negative (Negative) Urine Bilirubin Neg (Negative) Urine Urobilinogen Norm (Negative) mg/dL Ur Leukocyte Dina ase Negative (Negative) Urine RBC 0-4 H (0-2) /hpf Urine WBC 10-15 H (0-5) /hpf Ur Squamous Epith Cells 10-15 H (0-5) /hpf Amorphous Sediment Not Reportable Urine Bacteria 1+ H (NONE) /hpf Imaging Data^: CXR: Attestation: I personally reviewed and interpreted this imaging study as follows: Radiologist's impression: [address] [address] XRay Report Signed Patient: Margarita Guadarrama Unit #: [id number] : 1975 Age/Sex: 46 / F ADM Date: 07/18/21 Loc: ER Room/Bed: Attending Dr: Ordering Provider/Ordering MD: Alejandro Nolan Date of Service: 07/18/21 Procedure(s): XR chest 1V portable [id number] Accession Number(s): [id number] Report Number: [id number] WS: [id number] Exam: XR chest 1V portable [id number] Date/Time of Exam: 07/18/2021 10:47 AM Reason For Exam: CP Comparison 09/24/2015. The lungs are fully expanded and clear. Normal cardiomediastinal silhouette. No pleural effusions. There is hardware in the lower cervical spine. XR/XR chest 1V portable [id number] IMPRESSION: 1. No acute cardiopulmonary finding. Dictated By: Dwight Goldsmith DO Signed By: Dwight Goldsmith DO Signed Date/Time: 07/18/21 1107 DD/ 1106 EKG Data^: EKG 1: Attestation: I personally reviewed and interpreted this EKG as follows: EKG interpretation date: 07/18/21 Interpretation: Normal sinus rhythm, rate 78 bpm, no ST segment elevation or depression seen. Discharge Plan Discharge Patient Disposition: Home Clinical Impression: Non-cardiac chest pain, Musculoskeletal back pain Condition: Stable Prescriptions: New celecoxib 100 mg capsule 100 mg PO BID PRN (Reason: pain) Qty: 20 RF: 0 cyclobenzaprine 10 mg tablet 10 mg PO BID PRN (Reason: muscle spasm) Qty: 15 RF: 0 No Action (DME) Crutches See Rx Instructions .Route .MEDSUPPLY Qty: 1 RF: 0 buspirone 10 mg tablet 20 mg PO BID Qty: 120 RF: 2 fluoxetine [Prozac] 20 mg capsule 60 mg PO DAILY Qty: 90 RF: 2 hydroxyzine HCl 50 mg tablet 50 mg PO TID Qty: 90 RF: 2 Belsomra 10 mg tablet 10 mg PO BEDTIME RF: 0 Discharge Orders: Discharge ED (Routine); Ordered 07/18/21 Ordered By: Alejandro Nolan Referrals: Trevor Dean MD [Primary Care Provider] - Discharge Diet: Regular Discharge Activity: Increase activity as tolerated Patient Instructions: Musculoskeletal Pain (ED), Back Pain (ED), Noncardiac Chest Pain (ED) Activity Restrictions/Additional Instructions: Follow-up with medical provider as directed in 7 to 10 days for reevaluation. Take medications as prescribed. Cyclobenzaprine is a muscle relaxer and can cause some drowsiness so take at night before bed. Return to the ER or your medical provider if condition worsens. Please read and understand discharge instructions. Thank you for choosing [facility] for your healthcare needs today. Please realize this is an emergency room and that we are providing you with a medical screening exam and this may not be complete and all inclusive of all the testing and or work up that you may need to determine your ailment or severity of your illness. It is very important that you follow up as instructed or that you return to the Emergency Department should you have concerns or if your condition changes or worsens in any way. 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
[2021-07-18 11:56] VITALS: BP 155/79; PULSE 73; RESP 15; O2SAT 99
[2021-07-18 12:03] VITALS: BP 155/98; PULSE 73; RESP 16; TEMP 36.6; O2SAT 93
[2021-07-18 12:13] VITALS: RESP 17; O2SAT 97
[2021-07-18] MEDS: morphine 4 mg/mL SDV 1 mL IVP (12:13)
[2021-07-18] MEDS: aspirin 81 mg Chew Tablet 324 MG PO (12:19)
--- NOTE | 2021-07-18 12:48 | ECG_ITS ---
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 Measurements Intervals [place] Rate: 60 P: 67 [place]: 179 QRS: 41 QRSD: 86 T: 50 QT: 446 QTc: 446 Interpretive Statements SINUS RHYTHM Compared to ECG 07/18/2021 10:15:09 T-wave abnormality no longer present Electronically Signed On 07-18-2021 17:10:46 CDT by Dylon Baldwin M.D. [id number]
[2021-07-18 12:59] LABS: Urine Appearance Hazy (CLEAR); Urine Color Yellow (Yellow); pH Urine 8 (5-7)
[2021-07-18 13:00] LABS: Add Urine Culture? No; Bacteria Urine 1+ /hpf; Bilirubin Urine Neg (Negative); Blood Urine Neg (Negative); Glucose Urine UA Norm (Normal); Ketones Urine Negative (Negative); Leukocyte Esterase Urine Negative (Negative); Nitrate Urine Negative (Negative); Protein Urine Neg (Negative); RBC Urine 0-4 /hpf (0-2); Urobilinogen Urine Norm (Negative)
[2021-07-18 13:26] LABS: Troponin 5 2HR Delta 0 ABS# (0-10)
[2021-07-18] MEDS: ketorolac 30 mg/mL INJ IVP (13:55)
[2021-07-18 13:56] VITALS: BP 154/93; PULSE 72; RESP 15; O2SAT 98
--- NOTE | 2021-07-18 16:48 | ECG_ITS ---
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 Measurements Intervals [place] Rate: 78 P: 67 [place]: 170 QRS: 37 QRSD: 78 T: 66 QT: 373 QTc: 427 Interpretive Statements SINUS RHYTHM POSSIBLE LEFT ATRIAL ENLARGEMENT [-0.1mV P WAVE IN V1/V2] NONSPECIFIC T-WAVE ABNORMALITY Compared to ECG 04/21/2016 20:47:53 No significant changes Electronically Signed On 07-18-2021 17:10:55 CDT by Dylon Baldwin M.D. [id number]
== END 2021-07-18 14:11 | disposition home or self-care (01) ==
PROVIDERS: Emergency Provider Physician Assistant; PCP Family Medicine
DX: R07.89 Other chest pain (principal); M54.9 Dorsalgia, unspecified
CPT/HCPCS: 71045; 80053; 81001; 83690; 84484; 85025; 93005; 96374; 96375; 99284; J1885; J2270

== ENCOUNTER → 2021-07-26 08:08 | Outpatient (BNVA) | payer MEDICARE, MEDICAID, SELFPAY | PROVIDERS: PCP Family Medicine; Referring Provider Family Medicine; Visit Provider Specialist | DX: M25.519 Pain in unspecified shoulder (principal) | CPT/HCPCS: 73030 ==

== ENCOUNTER 2021-08-04 12:36 | Outpatient (CLI) | payer MEDICARE, MEDICAID, SELFPAY ==
--- NOTE | 2021-08-04 12:55 | MR_ITS ---
WS: [id number] MRI LEFT SHOULDER HISTORY: M25.519 - Pain in unspecified shoulder COMPARISON: Shoulder radiograph 07/26/2021 TECHNIQUE: Multiplanar sequences of the shoulder joint are submitted. Moderate soft tissue hypertrophy and increased T2 signal surrounding the AC joint. Soft tissue encroa chment and small osteophytes encroach upon the supraspinatus muscle. No significant amount of fluid i n the bursa. No os acromion. Biceps tendon is in normal position. 5 mm osteophyte from the distal und ersurface of the acromion encroaching upon the supraspinatus tendon over the humeral head. Thickening and increased signal within the distal supraspinatus tendon. No definite tear. If there is a rotator cuff tear it measures 2 mm along the articular surface. No retraction or muscle atrophy or edema. No labral tear. No marrow edema or fracture. Abnormal signal within the anterior labrum. MR/MR shoulder LT wo con* [id number] IMPRESSION: 1. Mild AC joint sprain. 2. Increased signal in the distal supraspinatus tendon. Most consistent with m oderate tendinopathy. Cannot confirm tendon tear. 3. 5 mm osteophyte from the distal undersurface of the acromion encroaches upo n the supraspinatus tendon over the humeral head. 4. Focal anterior labral tear.
== END 2021-08-04 12:37 | disposition home or self-care (01) ==
LOC: RADWPI 12:40
PROVIDERS: PCP Family Medicine; Visit Provider Specialist
DX: S43.52XA Sprain of left acromioclavicular joint, initial encounter (principal); M25.712 Osteophyte, left shoulder; S43.432A Superior glenoid labrum lesion of left shoulder, initial encounter; X58.XXXA Exposure to other specified factors, initial encounter
CPT/HCPCS: 73221

== ENCOUNTER → 2021-08-07 07:24 | Outpatient (BNVA) | payer MEDICARE, MEDICAID, SELFPAY | PROVIDERS: PCP Family Medicine; Visit Provider Psychiatry & Neurology Psychiatry | DX: F33.41 Major depressive disorder, recurrent, in partial remission (principal); F43.12 Post-traumatic stress disorder, chronic; F15.21 Other stimulant dependence, in remission | CPT/HCPCS: 99214 ==

== ENCOUNTER → 2021-09-05 14:29 | Outpatient (BNVA) | payer MEDICARE, MEDICAID, SELFPAY | PROVIDERS: PCP Family Medicine; Visit Provider Nurse Practitioner Family | DX: K92.1 Melena (principal); R10.9 Unspecified abdominal pain; R19.7 Diarrhea, unspecified; R11.10 Vomiting, unspecified; R11.0 Nausea | CPT/HCPCS: 80053; 85025; G0328 ==

== ENCOUNTER 2021-10-30 08:29 | Outpatient (CLI) | payer MEDICARE, MEDICAID, SELFPAY ==
--- NOTE | 2021-10-30 | CT_ITS ---
WS: [id number] CT ABDOMEN PELVIS TECHNIQUE: Contrast-enhanced CT of the abdomen and pelvis with coronal and sagittal reformatted image s. CLINICAL INFORMATION: LUQ PAIN COMPARISON: CT 2016 DLP: 1144.[address] scans at [facility] use at least one of these dose optimization techniques: automated e xposure control; mA and/or kV adjustment per patient size (includes targeted exams where dose is matc hed to clinical indication); or iterative reconstruction. FINDINGS: Prior hysterectomy and cholecystectomy. Lung bases are well aerated. Small esophageal hiatal hernia. Diffuse fatty infiltration of the liver. Mild hepatomegaly. Normal spleen. Normal pancreatic parenchy mal enhancement. Adrenal glands are normal. Normal renal parenchymal enhancement. Small right renal pelvic calculus me asuring 6.6mm is new since 2016 with dilatation of the right renal pelvis. Otherwise no evidence of s ignificant obstruction. Right ureter is decompressed.Recommend correlation for right flank pain. Tiny bilateral renal cysts. Sigmoid diverticulosis. No evidence of acute diverticulitis. Tiny fat-containing umbilical hernia. No rmal caliber abdominal aorta. No free fluid in the pelvis. CT/CT abdomen pelvis w con* [id number] IMPRESSION: 1. 6.3 mm calculus in the right renal pelvis is new since 2016. Dilatation rig ht renal pelvis but otherwise no evidence of obstruction. Correlation for right flank pain. 2. Normal renal parenchymal enhancement. Tiny bilateral renal cysts. 3. Small esophageal hiatal hernia. 4. Prior cholecystectomy and hysterectomy. 5. Diffuse infiltration liver with mild hepatomegaly. 6. Sigmoid diverticulosis. 7. No other significant findings.
[2021-10-30] MEDS: iohexol 300 mg/mL 100 mL Btl IV (12:24)
== END 2021-10-30 08:30 | disposition home or self-care (01) ==
PROVIDERS: PCP Family Medicine; Visit Provider Family Medicine
DX: R10.12 Left upper quadrant pain (principal); R10.32 Left lower quadrant pain; R19.7 Diarrhea, unspecified; K57.30 Diverticulosis of large intestine without perforation or abscess without bleeding; K76.89 Other specified diseases of liver; R16.0 Hepatomegaly, not elsewhere classified; Z90.49 Acquired absence of other specified parts of digestive tract; Z90.710 Acquired absence of both cervix and uterus; K44.9 Diaphragmatic hernia without obstruction or gangrene; N20.0 Calculus of kidney
CPT/HCPCS: 74177; Q9967

== ENCOUNTER → 2021-11-15 13:55 | Outpatient (BNVA) | payer MEDICARE, MEDICAID, SELFPAY | PROVIDERS: PCP Family Medicine; Visit Provider Internal Medicine | DX: Z01.812 Encounter for preprocedural laboratory examination (principal); Z20.822 Contact with and (suspected) exposure to COVID-19 | CPT/HCPCS: 87635 ==

== ENCOUNTER 2021-11-20 08:16 | Day surgery (SDC) | payer MEDICARE, MEDICAID, SELFPAY ==
[2021-11-16 13:02] VITALS: BMI 27.6
--- NOTE | 2021-11-20 08:34 | ANES.PREANE2 ---
Pre-Anesthetic Assessment Pre-Anesthetic Assessment: Height/Weight: Height 1.73 m Weight 82.554 kg Preop Diagnosis: early satiety and abd pain Proposed Procedure: Operation Date: 11/20/21 09:45 Proposed Procedures p EGD/Colon 54781 K92.1(Not Applicable) - Star Judge MD s Colonoscopy 22944 K68.81(Not Applicable) - Star Judge MD Was Beta Marta taken within 24 hours: N/A Was Clonidine taken within 24 hours: N/A Social: Social History: Tobacco and No alcohol Exam: Pre-Anes Outpt Exam: alert, oriented x 3 and regular rate & rhythm Airway: Submandibular: WNL Cervical ROM: WNL MP: 2 Dentition: Chipped Pulmonary: Pulmonary: COPD Neuropsych: Neuropsych: Anxiety and Depression Anesthetic Plan: ASA status: 3 Anesthesia: MAC Risk of > 500 ml blood loss (7ml/kg in children): No PFSH Anesthesia PFSH: Medical History Breast mass in female Psychiatric care Thyroid disease Surgical History H/O neck surgery H/O: hysterectomy Family History Other Cancer Diabetes Hyperlipidemia Hypertension Denies family history of CAD (coronary artery disease) Clotting disorder Dementia Psychiatric illness Chronic kidney disease (CKD) Suicide Anesthesia complication Bleeding disorder Family history of premature coronary artery disease Lung disease Stroke Social History Smoking and tobacco status: current every day smoker Alcohol intake: never Household members: none Data Anesthesia Cardiac Studies: No Data to Display
[2021-11-20 08:44] VITALS: BP 150/114; PULSE 83; RESP 16; TEMP 36.6; O2SAT 95
--- NOTE | 2021-11-20 08:47 | P.HP_ITS ---
Same Day Surgery H&P Indication for Procedure/HPI DATE OF PROCEDURE: November 20, 2021 CHIEF COMPLAINT/INDICATIONFOR SURGICAL PROCEDURE: Abdominal pain and hematochezia PREOP DIAGNOSIS: early satiety and abd pain PLANNED PROCEDRUE: Operation Date: 11/20/21 09:45 Proposed Procedures p EGD/Colon 80987 K92.1(Not Applicable) - Star Judge MD s Colonoscopy 13435 K68.81(Not Applicable) - Star Judge MD Medications/Allergies* Home Medications Medication Instructions Recorded Confirmed Type suvorexant [Belsomra] 10 mg PO BEDTIME 07/18/21 11/16/21 History Crutches ea 08/04/21 11/16/21 History Allergies/Adverse Reactions Allergy/AdvReac Type Severity Reaction Status Date / Time ondansetron [From Zofran] AdvReac Intermediate Made sick Verified 11/15/21 12:52 Penicillins AdvReac Intermediate Hives Verified 11/15/21 12:52 Pertinent History/Comorbid Conditions* Medical History (Updated 11/15/21 @ 13:14 by Star Judge MD) Breast mass in female Psychiatric care Thyroid disease Surgical History (Updated 04/10/21 @ 21:35 by Vishal Yoder DPM) H/O neck surgery H/O: hysterectomy Family History (Updated 09/07/20 @ 10:50 by Gloria Saxena LPN) Diabetes Hyperlipidemia Cancer Hypertension Denies family history of CAD (coronary artery disease) Clotting disorder Dementia Psychiatric illness Chronic kidney disease (CKD) Suicide Anesthesia complication Bleeding disorder Family history of premature coronary artery disease Lung disease Stroke Social History Smoking and tobacco status: current every day smoker Alcohol intake: never Household members: none Pertinent Exam Findings alert, oriented x 3, clear to auscultation bilaterally, regular rate & rhythm, operative site marked and procedure specific exam findings Recommendations Surgery/Procedure today Coding Level of Care Code Acute 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
[2021-11-20] MEDS: sodium chloride 0.9% 1,000 ML 30 ML IV ×2 (08:53→10:45)
[2021-11-20 10:54] VITALS: BP 156/102; PULSE 91; RESP 16; TEMP 36.4; O2SAT 93
[2021-11-20 11:09] VITALS: BP 138/97; PULSE 94; RESP 16; O2SAT 96
--- NOTE | 2021-11-20 13:32 | ANE.PACU2 ---
Inpatient post-anesthesia follow up: Airway intact: Yes Vital signs: Temperature 97.6 F Pulse Rate 94 Respiratory Rate 16 Blood Pressure 138/97 Pulse Oximetry 96 Oxygen Delivery Me thod Room Air Oxygen Flow Rate Fraction of Inspir ed Oxygen Hydration adequate: Yes Nausea and vomiting: No Pain level: 1 Mental status: Baseline
[2021-11-21 11:15] LABS: H. Pylori / CLO Test Negative
== END 2021-11-20 11:30 | disposition home or self-care (01) ==
PROVIDERS: PCP Family Medicine; Visit Provider Internal Medicine
PROC: 0DJ08ZZ Inspection of Upper Intestinal Tract, Via Natural or Artificial Opening Endoscopic (ICD-10-PCS; CPT 43235; principal; 2021-11-20 09:45)
PROC: 0DJD8ZZ Inspection of Lower Intestinal Tract, Via Natural or Artificial Opening Endoscopic (ICD-10-PCS; CPT 45378; 2021-11-20 09:45)
DX: K92.1 Melena (principal); R68.81 Early satiety; K44.9 Diaphragmatic hernia without obstruction or gangrene; K29.70 Gastritis, unspecified, without bleeding; J44.9 Chronic obstructive pulmonary disease, unspecified; F41.9 Anxiety disorder, unspecified; F32.9 Major depressive disorder, single episode, unspecified; F17.210 Nicotine dependence, cigarettes, uncomplicated
CPT/HCPCS: 43239; 45378; 87077; 96360; 96361; J2704; J7030

== ENCOUNTER → 2022-01-03 07:23 | Outpatient (BNVA) | payer MEDICARE, MEDICAID, SELFPAY | PROVIDERS: PCP Family Medicine; Visit Provider Psychiatry & Neurology Psychiatry | DX: F33.41 Major depressive disorder, recurrent, in partial remission (principal); F43.12 Post-traumatic stress disorder, chronic; F15.21 Other stimulant dependence, in remission | CPT/HCPCS: 99213 ==

== ENCOUNTER 2022-06-01 04:50 | Emergency (ER) | payer MEDICARE, MEDICAID, SELFPAY ==
[2022-06-01 04:59] VITALS: BP 176/118; PULSE 77; RESP 18; TEMP 36.6; O2SAT 93; BMI 28.8
--- NOTE | 2022-06-01 05:11 | CTR_ITS ---
PROCEDURE INFORMATION: Exam: CT Abdomen And Pelvis Without Contrast Exam date and time: 06/01/2022 6:10 AM Age: 46 years old Clinical indication: Abdominal pain; Localized; Left lower quadrant (llq); Prior surgery; Surgery date: 6+ months; Additional info: Llq pain TECHNIQUE: Imaging protocol: Computed tomography of the abdomen and pelvis without contrast. Radiation optimization: All CT scans at this facility use at least one of these dose optimization techniques: automated exposure control; mA and/or kV adjustment per patient size (includes targeted exams where dose is matched to clinical indication); or iterative reconstruction. COMPARISON: CT abdomen pelvis w con* [id number] 10/30/2021 9:48 AM RADIATION DOSE METRICS: Total DLP (mGy-cm): 1060.92 FINDINGS: Lungs: Pulmonary nodule within the middle lobe of approximately 3 mm. Consider follow-up CT chest. Non urgent. Diaphragm: Small hiatal hernia. Liver: nodularity of the liver is present. Correlate regarding risk factors for hepatocellular disease. Low-attenuation lesion posterior segment right lobe of the liver. 12 mm. Correlate with ultrasound versus contrast-enhanced CT. Gallbladder and bile ducts: Surgical clips are present in the region of the gallbladder fossa. Pancreas: Normal. No ductal dilation. Spleen: Normal. No splenomegaly. Adrenal glands: Normal. No mass. Kidneys and ureters: 10 mm calcification right kidney. 2 mm calcification lower pole left kidney Stomach and bowel: Mild thickening of the rectum and sigmoid colon. Lack of distension versus mild colitis. Correlate clinically. Moderate amount stool within the large bowel. Appendix: The appendix is not visualized. Intraperitoneal space: No free fluid within the pelvis or within the dependent portions of the peritoneum. Vasculature: Unremarkable. No abdominal aortic aneurysm. Lymph nodes: Unremarkable. No enlarged lymph nodes. Urinary bladder: Unremarkable as visualized. Reproductive: Prior hysterectomy. Bones/joints: Unremarkable. No acute fracture. Soft tissues: Unremarkable. Other findings: No obstruction. CT/CT kidney stone [id number] IMPRESSION: 1. Mild thickening of the rectum and sigmoid colon. Lack of distension versus mild colitis. Correlate clinically. 2. No obstruction. 3. No free fluid within the pelvis or within the dependent portions of the peritoneum. 4. Nodularity of the liver is present. Correlate regarding risk factors for hepatocellular disease. 5. Low-attenuation lesion posterior segment right lobe of the liver. 12 mm. Correlate with ultrasound versus contrast-enhanced CT.
--- NOTE | 2022-06-01 05:12 | W.ED.ABDPA2 ---
Documented by User: Lilia Hernandez MD 06/01/22 05:40 HPI - Abdominal Pain General: Chief Complaint: Abdominal Pain Stated Complaint: abd pain, L side pain Time Seen by Provider: 06/01/22 04:53 Source: patient Mode of arrival: ambulatory Limitations: no limitations History of Present Illness: 46-year-old female who states that states she been having left lower quadrant abdominal pain since yesterday. States the pain is been sharp in nature its been in her left lower quadrant states it also radiates to her left leg and her left back. States that tender to touch and worse with movement. States pain is currently an 8 out of 10 she denies any fever she has had some nausea denies any diarrhea. She has had a history of kidney stones but states this does not really feel similar. Associated Symptoms: Denies chills, dysuria and fever(s) Review of Systems Const: Denies: fever(s), chills, body aches or change in appetite Eyes: Denies: blurry vision or eye discomfort ENMT: Denies: throat pain or dental pain Card: Denies: chest pain Resp: Denies: dyspnea GI: Reports: abdominal pain : Denies: dysuria Musc: Denies: neck pain or back pain Skin/Breast: Denies: rash Neuro: Denies: headache(s) Psych: Denies: depression Bhavin/Lymph: Denies: easy bruising All/Imm: Denies: urticaria PFSH ED PFSH: Medical History Breast mass in female Psychiatric care Thyroid disease Surgical History H/O neck surgery H/O: hysterectomy Family History Other Cancer Diabetes Hyperlipidemia Hypertension Denies family history of CAD (coronary artery disease) Clotting disorder Dementia Psychiatric illness Chronic kidney disease (CKD) Suicide Anesthesia complication Bleeding disorder Family history of premature coronary artery disease Lung disease Stroke Social History Smoking and tobacco status: current every day smoker Alcohol intake: never Household members: none Physical Exam Const: COMMON NORMALS: no acute distress, patient oriented x3 and healthy appearing HENMT: COMMON NORMALS: normocephalic and atraumatic HEAD & SCALP: normocephalic and atraumatic Eye: COMMON NORMALS: Equal, round and reactive pupils present and EOMs intact bilaterally PUPIL: Yes Equal, round and reactive pupils present Neck/C-Spine: COMMON NORMALS: full ROM and supple Chest: COMMONS NORMALS: normal inspection of the chest and normal palpation of entire chest wall Resp: COMMON NORMALS: normal respiratory effort, No retractions, No use of accessory muscles and clear to auscultation bilaterally AUSCULTATION: clear to auscultation bilaterally Cardio: COMMON NORMALS: regular rate, regular rhythm and No murmurs present (Cardio) RATE: regular rate RHYTHM: regular rhythm GI: COMMON NORMALS: Normal to inspection, nondistended, normoactive bowel sounds present, Soft to palpation and no masses PALPATION: Yes Soft to palpation and Yes Tenderness to palpation present (GI) Details: LLQ Extremity: COMMON NORMALS: normal to inspection and full ROM Neuro: COMMON NORMALS: patient oriented x3, moves all extremities and no focal motor deficits Psych: COMMON NORMALS: mental status grossly normal, Normal thought process present and cooperative THOUGHT PROCESS: Normal thought process present Skin: COMMON NORMALS: no rashes or lesions noted and no wounds GENERAL SKIN EXAM: no rashes or lesions noted Course Vital Signs: Vital signs: Vital Signs Temperature 97.9 F 06/01/22 04:59 Pulse Rate 65 06/01/22 08:30 Respiratory Rate 18 06/01/22 08:30 Blood Pressure 177/108 06/01/22 06:51 Pulse Oximetry 98 06/01/22 08:30 MDM - Abdominal Pain Medical Decision Making Patient presents with abdominal pain patient is pending lab work and CT scan patient's care turned over to Dr. Portillo at this time Lab Data : 06/01/22 05:12 06/01/22 05:12 Labs/Radiology: Radiology Impressions Abdomen/Pelvis CT 06/01/22 05:11 IMPRESSION: 1. Mild thickening of the rectum and sigmoid colon. Lack of distension versus mild colitis. Correlate clinically. 2. No obstruction. 3. No free fluid within the pelvis or within the dependent portions of the peritoneum. 4. Nodularity of the liver is present. Correlate regarding risk factors for hepatocellular disease. 5. Low-attenuation lesion posterior segment right lobe of the liver. 12 mm. Correlate with ultrasound versus contrast-enhanced CT. Laboratory Results WBC 13.0 10^3/uL (4.0-10.0) H 06/01/22 05:12 RBC 5.26 10^6/uL (4.1-5.3) 06/01/22 05:12 Hgb 15.9 g/dL (11.5-15.3) H 06/01/22 05:12 Hct 47.5 % (37.0-47.0) H 06/01/22 05:12 MCV 90.3 fl (81-99) 06/01/22 05:12 MCH 30.2 pg (28.0-34.0) 06/01/22 05:12 MCHC 33.5 g/dL (30.0-36.0) 06/01/22 05:12 RDW 13.2 % (12.1-15.1) 06/01/22 05:12 Plt Count 245 10^3/cmm (130-400) 06/01/22 05:12 MPV 11.6 fL (7.4-10.4) H 06/01/22 05:12 Neut % (Auto) 54.7 % 06/01/22 05:12 Lymph % (Auto) 28.3 % 06/01/22 05:12 [place] % (Auto) 8.5 % 06/01/22 05:12 Eos % (Auto) 7.4 % 06/01/22 05:12 Baso % (Auto) 0.7 % 06/01/22 05:12 Neut # (Auto) 7.10 10^3/uL (1.8-7.7) 06/01/22 05:12 Lymph # (Auto) 3.7 10^3/uL (0.8-4.8) 06/01/22 05:12 [place] # (Auto) 1.1 10^3/uL (0.2-0.9) H 06/01/22 05:12 Eos # (Auto) 1.0 10^3/uL (0.0-0.8) H 06/01/22 05:12 Baso # (Auto) 0.1 10^3/uL (0.0-0.1) 06/01/22 05:12 Nucleated RBC % (auto) 0 % 06/01/22 05:12 Nucleated RBCs # 0.0 /100WBC 06/01/22 05:12 Sodium 139 mmol/L (136-145) 06/01/22 05:12 Potassium 3.9 mmol/L (3.5-5.1) 06/01/22 05:12 Chloride 104 mmol/L (98-107) 06/01/22 05:12 Carbon Dioxide 23 mmol/L (22-29) 06/01/22 05:12 Anion Gap 15.9 (5-19) 06/01/22 05:12 BUN 11 mg/dL (6-20) 06/01/22 05:12 Creatinine 0.9 mg/dL (0.5-0.9) 06/01/22 05:12 GFR Calculation 66.8 mL/min (90-130) L 06/01/22 05:12 Glucose 99 mg/dL (65-115) 06/01/22 05:12 Calculated Osmolality 287 mOsm/kg (285-295) 06/01/22 05:12 Calcium 8.9 mg/dL (8.5-10.5) 06/01/22 05:12 Total Bilirubin 0.4 mg/dL (0.15-1.2) 06/01/22 05:12 AST 13 U/L (0-32) 06/01/22 05:12 ALT 11 U/L (0-33) 06/01/22 05:12 Alkaline Phosphatase 85 IU/L (35-105) 06/01/22 05:12 Total Protein 7.0 g/dL (6.6-8.7) 06/01/22 05:12 Albumin 4.4 g/dL (3.5-5.2) 06/01/22 05:12 Globulin 2.6 g/dL (1.3-4.6) 06/01/22 05:12 Lipase 52 U/L (13-60) 06/01/22 05:12 Urine Color Yellow (Yellow) 06/01/22 05:10 Urine Appearance Clear (CLEAR) 06/01/22 05:10 Urine pH 6 (5-7) 06/01/22 05:10 Ur Specific [place] 1.020 (1.005-1.030) 06/01/22 05:10 Urine Protein Neg (Negative) 06/01/22 05:10 Urine Glucose (UA) Norm (Normal) 06/01/22 05:10 Urine Ketones Negative (Negative) 06/01/22 05:10 Urine Blood Neg (Negative) 06/01/22 05:10 Urine Nitrate Negative (Negative) 06/01/22 05:10 Urine Bilirubin Neg (Negative) 06/01/22 05:10 Urine Urobilinogen Norm mg/dL (Negative) 06/01/22 05:10 Ur Leukocyte Esterase Negative (Negative) 06/01/22 05:10 Discharge Plan Discharge Patient Disposition: Home Clinical Impression: Colitis Condition: Stable Prescriptions: New Cipro 500 mg tablet 500 mg PO BID Qty: 14 0RF metronidazole 500 mg tablet 500 mg PO Q12H 10 Days Qty: 20 0RF hydrocodone-acetaminophen 5-325 mg tablet 1 tab PO Q6H PRN (Reason: pain) Qty: 20 0RF No Action bupropion HCl [Wellbutrin XL] 150 mg tablet extended release 24 hr 150 mg PO QAM Qty: 30 2RF buspirone 10 mg tablet 20 mg PO BID Qty: 120 2RF fluoxetine [Prozac] 20 mg capsule 60 mg PO DAILY Qty: 90 2RF hydroxyzine HCl 50 mg tablet 50 mg PO TID Qty: 90 2RF Belsomra 10 mg tablet 10 mg PO BEDTIME Qty: 30 0RF pantoprazole 40 mg tablet,delayed release (DR/EC) 40 mg PO DAILY Qty: 90 8RF Discharge Orders: Discharge ED (Routine); Ordered 06/01/22 Ordered By: Marek Portillo Referrals: Trevor Dean MD [Primary Care Provider] - Discharge Diet: Clear Liquid Discharge Activity: Increase activity as tolerated Patient Instructions: Colitis (ED), Opioid Safety Sign Out Sign Out Data: Patient Sign Out occurred on 06/01/22 at 06:15. Patient's care was discussed, and care was transferred from to Marek Portillo DO. Coding Level of Care Code ED Change Management Specialist for Chg Fwd Exam Comprehensive Documented by User: Marek Portillo DO 06/01/22 15:13 HPI - Abdominal Pain General: Chief Complaint: Abdominal Pain Stated Complaint: abd pain, L side pain Time Seen by Provider: 06/01/22 04:53 PFSH ED PFSH: Medical History Breast mass in female Psychiatric care Thyroid disease Surgical History H/O neck surgery H/O: hysterectomy Family History Other Cancer Diabetes Hyperlipidemia Hypertension Denies family history of CAD (coronary artery disease) Clotting disorder Dementia Psychiatric illness Chronic kidney disease (CKD) Suicide Anesthesia complication Bleeding disorder Family history of premature coronary artery disease Lung disease Stroke Social History Smoking and tobacco status: current every day smoker Alcohol intake: never Household members: none Course Vital Signs: Vital signs: Vital Signs Temperature 97.9 F 06/01/22 04:59 Pulse Rate 65 06/01/22 08:30 Respiratory Rate 18 06/01/22 08:30 Blood Pressure 177/108 06/01/22 06:51 Pulse Oximetry 98 06/01/22 08:30 MDM - Abdominal Pain Medical Decision Making Patient presents with abdominal pain patient is pending lab work and CT scan patient's care turned over to Dr. Portillo at this time Care assumed at change of shift CT shows colitis. Will discharge patient home with hydrocodone Cipro and Flagyl clear liquid diet for the next 24 to 48 hours and advance as tolerated. Medical Records I reviewed the patient's medical records. Lab Data I reviewed the patient's lab results. : 06/01/22 05:12 06/01/22 05:12 Labs/Radiology: Radiology Impressions Abdomen/Pelvis CT 06/01/22 05:11
[2022-06-01 05:16] LABS: Basophils # 0.1 10^3/uL (0.0-0.1); Basophils % 0.7 %; Eosinophils % 7.4 %; Hematocrit 47.5 % (37.0-47.0); Hemoglobin 15.9 g/dL (11.5-15.3); Lymphocytes # 3.7 10^3/uL (0.8-4.8); Lymphocytes % 28.3 %; Mean Corpuscular HGB Conc 33.5 g/dL (30.0-36.0); Mean Corpuscular Hemoglobin 30.2 pg (28.0-34.0); Mean Corpuscular Volume 90.3 fl (81-99); Mean Platelet Volume 11.6 fL (7.4-10.4); Monocytes # 1.1 10^3/uL (0.2-0.9); Monocytes % 8.5 %; Neutrophils % 54.7 %; Nucleated Red Blood Cells % 0 %; Platelet Count 245 10^3/cmm (130-400); Red Blood Count 5.26 10^6/uL (4.1-5.3); Red Cell Distribution Width 13.2 % (12.1-15.1)
[2022-06-01 05:22] VITALS: RESP 20
[2022-06-01] MEDS: morphine 4 mg/mL SDV 1 mL IVP ×2 (05:22→07:19)
[2022-06-01] MEDS: sodium chloride 0.9% 1,000 ML 999 ML IV (05:23)
[2022-06-01 05:29] LABS: Add Urine Microscopic? NO; Charge for UA Resulting for Rev
[2022-06-01 05:32] LABS: Bilirubin Urine Neg (Negative); Blood Urine Neg (Negative); Glucose Urine UA Norm (Normal); Ketones Urine Negative (Negative); Leukocyte Esterase Urine Negative (Negative); Nitrate Urine Negative (Negative); Protein Urine Neg (Negative); Urine Appearance Clear (CLEAR); Urine Color Yellow (Yellow); Urobilinogen Urine Norm (Negative); pH Urine 6 (5-7)
[2022-06-01 05:40] LABS: Alanine Aminotransferase 11 U/L (0-33); Albumin Level 4.4 g/dL (3.5-5.2); Alkaline Phosphatase 85 IU/L (35-105); Anion Gap 15.9 (5-19); Aspartate Amino Transferase 13 U/L (0-32); Blood Urea Nitrogen 11 mg/dL (6-20); Calcium 8.9 mg/dL (8.5-10.5); Carbon Dioxide 23 mmol/L (22-29); Chloride 104 mmol/L (98-107); Globulin 2.6 g/dL (1.3-4.6); Glomerular Filtration Rate 66.8 mL/min (90-130); Glucose 99 mg/dL (65-115); Lipase 52 U/L (13-60); Osmolality Calculated 287 mOsm/kg (285-295); Potassium 3.9 mmol/L (3.5-5.1); Sodium 139 mmol/L (136-145); Total Bilirubin 0.4 mg/dL (0.15-1.2)
[2022-06-01 06:51] VITALS: BP 177/108; PULSE 61; RESP 18; O2SAT 95
[2022-06-01 07:19] VITALS: RESP 18
[2022-06-01 08:30] VITALS: PULSE 65; RESP 18; O2SAT 98
== END 2022-06-01 08:59 | disposition home or self-care (01) ==
PROVIDERS: Emergency Medicine; Emergency Provider Family Medicine; PCP Family Medicine
DX: K52.9 Noninfective gastroenteritis and colitis, unspecified (principal)
CPT/HCPCS: 74176; 80053; 81003; 83690; 85025; 96361; 96374; 96376; 99285; J2270; J7030

== ENCOUNTER 2022-07-16 13:49 | Outpatient (CLI) | payer MEDICARE, MEDICAID, SELFPAY ==
--- NOTE | 2022-07-16 14:01 | MM_ITS ---
WS: [id number] BILATERAL 3D TOMOSYNTHESIS DIGITAL SCREENING MAMMOGRAPHY WITH CAD CLINICAL INFORMATION: SCREENING HISTORY: Screening mammogram. LEFT breast pain and soreness. LEFT breast lump. COMPARISON: November 30, 2019 TECHNIQUE: Bilateral CC and MLO views. FINDINGS: The breasts are composed of heterogeneous fibroglandular density tissue, which can limit the detectio n of small underlying mass lesions. Increasing punctate clustered calcifications posterior LEFT breas t. Recommend spot magnification views for further evaluation. RIGHT breast is unchanged. MM/[place] [id number] IMPRESSION: BI-RADS: 0-Incomplete: Need additional imaging evaluation FOLLOW UP: Need Additional Imaging Recommend LEFT breast spot magnification views of the increasing calcifications .o
== END 2022-07-16 13:50 | disposition home or self-care (01) ==
PROVIDERS: PCP Family Medicine; Visit Provider Family Medicine
DX: Z12.31 Encounter for screening mammogram for malignant neoplasm of breast (principal)
CPT/HCPCS: 77063; 77067

== ENCOUNTER 2022-07-20 13:25 | Outpatient (CLI) | payer MEDICARE, MEDICAID, SELFPAY ==
--- NOTE | 2022-07-20 13:36 | MM_ITS ---
WS: [id number] LEFT 3D TOMOSYNTHESIS DIGITAL MAMMOGRAPHY WITH CAD CLINICAL INFORMATION: ABNORMAL MAMMO COMPARISON: July 16, 2022 TECHNIQUE: 3 views of the left breast were obtained. FINDINGS: The left breast is composed of heterogeneous fibroglandular density tissue, which can limit the detec tion of small underlying mass lesions. Spot magnification views of the diffuse amorphous punctate tabitha cifications posterior LEFT breast. Overall these are indeterminate in appearance and increased since 2019. Recommend further evaluation with stereotactic guided biopsy. MM/[id number] IMPRESSION: BI-RADS: 4-Suspicious Finding-Biopsy Should Be Considered FOLLOW UP: Stereotactic Biopsy Recommended
== END 2022-07-20 13:26 | disposition home or self-care (01) ==
PROVIDERS: PCP Family Medicine; Visit Provider Family Medicine
DX: R92.8 Other abnormal and inconclusive findings on diagnostic imaging of breast (principal); R92.1 Mammographic calcification found on diagnostic imaging of breast
CPT/HCPCS: 77061

== ENCOUNTER 2022-08-04 16:44 | Emergency (ER) | payer MEDICARE, MEDICAID, SELFPAY ==
[2022-08-04 16:52] VITALS: BP 148/80; PULSE 82; RESP 18; TEMP 36.7; O2SAT 95; BMI 27.3
--- NOTE | 2022-08-04 17:56 | ED_ITS ---
HPI - Neck Pain/Injury General: Chief Complaint: Neck Pain/Injury Stated Complaint: neck pain Time Seen by Provider: 08/04/22 17:00 History of Present Illness: Patient is a 47-year-old female comes to the ED with neck pain. She has a history of chronic neck pain. She says about 3 to 4 days ago she woke up and was having soreness and pain in her neck. Most of pain is on right side of neck and radiates up into the back of head. She rates pain currently an 8 out of 10. She has taken some ibuprofen but that has not helped with pain. Denies any fall trauma or any other injury to cause acute neck pain. Associated symptoms: Denies headache(s) or nausea Review of Systems Const: Denies: fever(s), chills or fatigue Eyes: Denies: change in vision or eye discomfort ENMT: Denies: throat pain, odynophagia, nasal discharge or nasal congestion Card: Denies: chest pain, palpitations, edema, swelling of feet/ankles, dyspnea on exertion or orthopnea Resp: Denies: dyspnea, productive cough or non-productive cough GI: Denies: abdominal pain, nausea, vomiting, diarrhea, constipation or hematochezia : Denies: flank pain, dysuria or hematuria Musc: Reports: neck pain; Denies: back pain or extremity swelling Skin/Breast: Denies: rash or new lesions Neuro: Denies: headache(s), numbness in extremities or weakness in extremities [facility] ED PFSH: Medical History Breast mass in female Psychiatric care Thyroid disease Surgical History H/O neck surgery H/O: hysterectomy Family History Other Cancer Diabetes Hyperlipidemia Hypertension Denies family history of CAD (coronary artery disease) Clotting disorder Dementia Psychiatric illness Chronic kidney disease (CKD) Suicide Anesthesia complication Bleeding disorder Family history of premature coronary artery disease Lung disease Stroke Social History Smoking and tobacco status: current every day smoker Alcohol intake: never Household members: none Physical Exam Const: COMMON NORMALS: no acute distress, patient oriented x3, healthy appearing and alert GENERAL APPEARANCE: cooperative and comfortable HENMT: COMMON NORMALS: normocephalic HEAD & SCALP: normocephalic MOUTH: Normal oral and palatal mucosa present THROAT: posterior oropharynx normal and uvula midline Neck/C-Spine: COMMON NORMALS: supple GENERAL: Yes normal visual inspection CERVICAL SPINE: Yes cervical ROM normal, Yes pain with cervical ROM, No Cervical spine tenderness and Yes Paracervical muscle tenderness bilateral Resp: COMMON NORMALS: normal respiratory effort, No retractions, No use of accessory muscles and clear to auscultation bilaterally AUSCULTATION: clear to auscultation bilaterally Cardio: COMMON NORMALS: regular rate, regular rhythm, S1 normal heart sound present, S2 normal heart sound present, No gallops present (Cardio), No clicks present (Cardio), No murmurs present (Cardio) and Peripheral pulses 2+ throughout RATE: regular rate RHYTHM: regular rhythm HEART SOUNDS: S1 normal heart sound present and S2 normal heart sound present PERIPHERAL PULSES: Peripheral pulses 2+ throughout GI: COMMON NORMALS: Normal to inspection, nondistended, normoactive bowel sounds present, Soft to palpation, non-tender and no masses PALPATION: Yes Soft to palpation : COMMON NORMALS: Yes no CVA tenderness BLADDER/KIDNEY EXAM: Yes no CVA tenderness Back/Pelvis: COMMON NORMALS: no CVA tenderness Extremity: COMMON NORMALS: normal to inspection Neuro: COMMON NORMALS: patient oriented x3 SENSORIUM/ORIENTATION: Yes alert GAIT: Yes Normal gait present Skin: GENERAL SKIN EXAM: dry skin Course Vital Signs: Vital signs: Vital Signs Temperature 98.0 F 08/04/22 16:52 Pulse Rate 82 08/04/22 16:52 Respiratory Rate 18 08/04/22 16:52 Blood Pressure 148/80 08/04/22 16:52 Pulse Oximetry 95 08/04/22 16:52 Oxygen Delivery Me thod 08/04/22 16:52 MDM - Neck Pain/Injury Medical Decision Making Patient is a 47-year-old female comes to the ED with neck pain. She has a history of chronic neck pain. She says about 3 to 4 days ago she woke up and was having soreness and pain in her neck. Most of pain is on right side of neck and radiates up into the back of head. Denies any fall, trauma or injury to cause acute neck pain. Vitals are stable. Patient appears nontoxic in no acute distress. She does have some paracervical muscle tenderness bilaterally. Range of motion in cervical spine is normal. Patient was given Toradol and Norflex here in the ED. Her symptoms improved after meds. She was diagnosed with neck pain and was discharged home with a prescription for Celebrex and a muscle relaxer. Told to follow-up with PCP in the next week for reevaluation. Return to ED precautions given. Patient understood and agreed with plan. Discharge Plan Discharge Patient Disposition: Home Clinical Impression: Neck pain Condition: Stable Prescriptions: New celecoxib 100 mg capsule 100 mg PO BID PRN (Reason: pain) Qty: 20 0RF cyclobenzaprine 10 mg tablet 10 mg PO BID PRN (Reason: muscle spasm) Qty: 20 0RF No Action bupropion HCl [Wellbutrin XL] 150 mg tablet extended release 24 hr 150 mg PO QAM Qty: 30 2RF buspirone 10 mg tablet 20 mg PO BID Qty: 120 2RF fluoxetine [Prozac] 20 mg capsule 60 mg PO DAILY Qty: 90 2RF hydroxyzine HCl 50 mg tablet 50 mg PO TID Qty: 90 2RF Belsomra 10 mg tablet 10 mg PO BEDTIME Qty: 30 0RF pantoprazole 40 mg tablet,delayed release (DR/EC) 40 mg PO DAILY Qty: 90 8RF Cipro 500 mg tablet 500 mg PO BID Qty: 14 0RF hydrocodone-acetaminophen 5-325 mg tablet 1 tab PO Q6H PRN (Reason: pain) Qty: 20 0RF Discharge Orders: Discharge ED (Routine); Ordered 08/04/22 Ordered By: Alejandro Nolan Referrals: Trevor Dean MD [Primary Care Provider] - Discharge Diet: Regular Discharge Activity: Increase activity as tolerated Patient Instructions: Neck Pain (ED) Activity Restrictions/Additional Instructions: Follow-up with medical provider as directed in the next 5 to 7 days reevaluation. Take medications as prescribed. Apply cold pack on neck and massage neck muscles daily and stretch neck muscles out as well daily. Return to the ER or your medical provider if condition worsens. Please read and understand discharge instructions. Thank you for choosing [facility] [place] for your healthcare needs today. Please realize this is an emergency room and that we are providing you with a medical screening exam and this may not be complete and all inclusive of all the testing and or work up that you may need to determine your ailment or severity of your illness. It is very important that you follow up as instructed or that you return to the Emergency Department should you have concerns or if your condition changes or worsens in any way. Coding Level of Care Code ED Sales Engineer Account Manager for Sachin Fwd Exam Comprehensive
[2022-08-04] MEDS: orphenadrine 30 mg/mL Inj 2 mL 60 MG IM (18:10)
[2022-08-04] MEDS: ketorolac 60 mg/2 mL INJ IM (18:10)
== END 2022-08-04 18:44 | disposition home or self-care (01) ==
PROVIDERS: Emergency Provider Physician Assistant; PCP Family Medicine
DX: M54.2 Cervicalgia (principal); F17.210 Nicotine dependence, cigarettes, uncomplicated
CPT/HCPCS: 96372; 99284; J1885; J2360

== ENCOUNTER 2022-08-21 12:09 | Outpatient (CLI) | payer MEDICARE, MEDICAID, SELFPAY ==
--- NOTE | 2022-08-21 12:14 | MM_ITS ---
WS: [id number] STEREOTACTIC LEFT BREAST BIOPSY WITH VACUUM ASSISTANCE. History: Heterogeneous LEFT breast calcifications. Biopsy recommended for suspicious calcifications. Comparison: July 20, 2022 Procedure, risks, and complications were discussed the patient who agreed to proceed. Prior imaging w as reviewed. Cluster of calcifications within the left breast are localized. Stereotactic imaging was performed. P atient was prepped and draped in usual sterile fashion. After 1% lidocaine, calcifications were [place] stereotactically in the LEFT breast. Small incision was made. Needle advanced into the cluster of calcifications LEFT breast with imaging demonstrating appropriate position relative to the calcifica tions. Multiple vacuum-assisted core biopsies were obtained. Postprocedure imaging demonstrates calci fications within the biopsy specimen. The biopsy cavity was lavaged. Titanium clip was placed at the biopsy site. Postprocedure imaging dem onstrates clip in good position. No immediate complications. MM/[id number] IMPRESSION: 1. Uncomplicated vacuum-assisted stereotactic biopsy of calcifications in the LEFT breast. Pathology Comment: A. Breast, left breast calcifications, 3 o'clock position - Usual ductal hyperplasia with columnar cell changes and intraluminal microcal cifications. - Marked fibrocystic changes with florid ductal hyperplasia. - Focal ATYPICAL hyperplasia with apocrine metaplasia. _No invasive malignancy or DCIS seen, however, a conservative excision is jamal gallo. RECOMMEND BREAST SURGERY CONSULTATION FOR SURGICAL EXCISION. THIS CAN BE LOCALIZED WITH STEREOTACTIC WIRE LOCALIZATION PRIOR TO SURGERY.
--- NOTE | 2022-08-21 12:14 | MM_ITS ---
WS: [id number] STEREOTACTIC LEFT BREAST BIOPSY WITH VACUUM ASSISTANCE. History: Heterogeneous LEFT breast calcifications. Biopsy recommended for suspicious calcifications. Comparison: July 20, 2022 Procedure, risks, and complications were discussed the patient who agreed to proceed. Prior imaging w as reviewed. Cluster of calcifications within the left breast are localized. Stereotactic imaging was performed. P atient was prepped and draped in usual sterile fashion. After 1% lidocaine, calcifications were [place] stereotactically in the LEFT breast. Small incision was made. Needle advanced into the cluster of calcifications LEFT breast with imaging demonstrating appropriate position relative to the calcifica tions. Multiple vacuum-assisted core biopsies were obtained. Postprocedure imaging demonstrates calci fications within the biopsy specimen. The biopsy cavity was lavaged. Titanium clip was placed at the biopsy site. Postprocedure imaging dem onstrates clip in good position. No immediate complications. MM/MM surgical specimen LT IMPRESSION: 1. Uncomplicated vacuum-assisted stereotactic biopsy of calcifications in the LEFT breast. Pathology Comment: A. Breast, left breast calcifications, 3 o'clock position - Usual ductal hyperplasia with columnar cell changes and intraluminal microcal cifications. - Marked fibrocystic changes with florid ductal hyperplasia. - Focal ATYPICAL hyperplasia with apocrine metaplasia. _No invasive malignancy or DCIS seen, however, a conservative excision is jamal gallo. RECOMMEND BREAST SURGERY CONSULTATION FOR SURGICAL EXCISION. THIS CAN BE LOCALIZED WITH STEREOTACTIC WIRE LOCALIZATION PRIOR TO SURGERY.
--- NOTE | 2022-08-21 12:14 | MM_ITS ---
WS: [id number] STEREOTACTIC LEFT BREAST BIOPSY WITH VACUUM ASSISTANCE. History: Heterogeneous LEFT breast calcifications. Biopsy recommended for suspicious calcifications. Comparison: July 20, 2022 Procedure, risks, and complications were discussed the patient who agreed to proceed. Prior imaging w as reviewed. Cluster of calcifications within the left breast are localized. Stereotactic imaging was performed. P atient was prepped and draped in usual sterile fashion. After 1% lidocaine, calcifications were [place] stereotactically in the LEFT breast. Small incision was made. Needle advanced into the cluster of calcifications LEFT breast with imaging demonstrating appropriate position relative to the calcifica tions. Multiple vacuum-assisted core biopsies were obtained. Postprocedure imaging demonstrates calci fications within the biopsy specimen. The biopsy cavity was lavaged. Titanium clip was placed at the biopsy site. Postprocedure imaging dem onstrates clip in good position. No immediate complications. MM/MM biopsy [place] vac assist [id number] IMPRESSION: 1. Uncomplicated vacuum-assisted stereotactic biopsy of calcifications in the LEFT breast. Pathology Comment: A. Breast, left breast calcifications, 3 o'clock position - Usual ductal hyperplasia with columnar cell changes and intraluminal microcal cifications. - Marked fibrocystic changes with florid ductal hyperplasia. - Focal ATYPICAL hyperplasia with apocrine metaplasia. _No invasive malignancy or DCIS seen, however, a conservative excision is jamal gallo. RECOMMEND BREAST SURGERY CONSULTATION FOR SURGICAL EXCISION. THIS CAN BE LOCALIZED WITH STEREOTACTIC WIRE LOCALIZATION PRIOR TO SURGERY.
== END 2022-08-21 12:10 | disposition home or self-care (01) ==
PROVIDERS: PCP Family Medicine; Visit Provider Family Medicine
DX: R92.8 Other abnormal and inconclusive findings on diagnostic imaging of breast (principal); R92.1 Mammographic calcification found on diagnostic imaging of breast; N62 Hypertrophy of breast
CPT/HCPCS: 19081; 77065; 88305; J7050

== ENCOUNTER → 2022-10-12 07:24 | Day surgery (SDC) | payer MEDICARE, MEDICAID, SELFPAY ==
[2022-10-12] VITALS (9 sets, daily range): BP systolic 101–174; BP diastolic 62–110; PULSE 73–89; RESP 12–20; TEMP 36.2–36.4; O2SAT 95–99
[2022-10-12] MEDS: sodium chloride 0.9% 1,000 ML 30 ML IV (07:47)
--- NOTE | 2022-10-12 07:54 | ANES.PREANE2 ---
Pre-Anesthetic Assessment Height/Weight: Height 1.73 m Weight 72.575 kg Temp Pulse Resp BP Pulse Ox O2 Del Method 97.5 F L 82 18 174/110 96 10/12/22 07:40 10/12/22 07:40 10/12/22 07:40 10/12/22 07:40 10/12/22 07:40 10/12/22 07:40 Preop Diagnosis: early satiety and abd pain Operation Date: 10/12/22 09:00 Proposed Procedures p Left Breast lumpect[place] [address] Ultra sound room 2(Left) - Low Phillips MD Familial anesthetic complications: None Was Beta Marta taken within 24 hours: N/A Was Clonidine taken within 24 hours: N/A Last intake: Intake Last Liquid Date 10/11/22 Last Liquid Time 22:00 Last Solid Date 10/11/22 Last Solid Time 19:00 Social Tobacco and No alcohol Exam alert, oriented x 3, clear to auscultation bilaterally and regular rate & rhythm Airway Mallampati: Class III Dentition: chipped and full Anesthetic Plan ASA status: 3 Anesthesia: General Risk of > 500 ml blood loss (7ml/kg in children): No Medications/Allergies Home Medications Medication Instructions Recorded Confirmed Last Taken Type No Known Home Medications 10/11/22 10/11/22 Unknown History Allergies Allergy/AdvReac Type Severity Reaction Status Date / Time ondansetron [From Zofran] AdvReac Intermediate Made sick Verified 10/12/22 07:35 Penicillins AdvReac Intermediate Hives Verified 10/12/22 07:35 Current Medications Generic Name Dose Route Start Last Admin Trade Name Kasandra PRN Reason Stop Dose Admin Sodium Chloride 1,000 mls @ 30 mls/hr 10/12/22 07:30 10/12/22 07:47 Sodium Chloride 0.9% IV 10/13/22 07:29 30 mls/hr .Q24H SIMON Administration PFSH Anesthesia Medical History Breast mass in female Psychiatric care Thyroid disease Surgical History H/O neck surgery H/O: hysterectomy Family History Other Cancer Diabetes Hyperlipidemia Hypertension Denies family history of CAD (coronary artery disease) Clotting disorder Dementia Psychiatric illness Chronic kidney disease (CKD) Suicide Anesthesia complication Bleeding disorder Family history of premature coronary artery disease Lung disease Stroke Social History Smoking and tobacco status: current every day smoker Alcohol intake: never Household members: none Data Anesthesia Cardiac Studies: No Data to Display
--- NOTE | 2022-10-12 08:34 | MM_ITS ---
WS: [id number] STEREOTACTIC LEFT BREAST NEEDLE LOCALIZATION HISTORY: Indeterminate stereotactic biopsy of calcifications in the LEFT breast. COMPARISON: 08/21/2022, 07/20/2022 and 07/16/2022 Procedure, risks and complications are explained to the patient. Consent has been obtained. Localization of calcifications is done with stereotactic technique. Skin is cleansed with ChloraPrep and anesthetized with 1% buffered lidocaine. Kopans needle is inserted to the level of the calcificat ions. Needle is advanced 1.0 cm beyond the calcifications. Calcifications are localized to the lateral LEFT breast. Postprocedure the wire extends 1.0 cm calcif ications. The calcifications extend in the linear distribution. The clip is within 1 cm of the wire. The wire is placed between groups of calcifications. This was discussed with Dr. Phillips prior to surgery . Wire is secured and the patient is sent to the OR with no complications. SPECIMEN RADIOGRAPH: Calcifications in the clip and the wire are obtained within the specimen. MM/[place] [id number] IMPRESSION: 1. Uncomplicated wire localization of calcifications and clip in the LEFT [address]. The wire is centered between groups of calcifications and adjacent to the p rior biopsy clip. PATHOLOGY: Focus of atypical hyperplasia with apocrine metaplasia. Prior biopsy site identified. No malignancy. Fibrocystic changes. RECOMMENDATION: Diagnostic LEFT mammogram in 6 month follow-up.
--- NOTE | 2022-10-12 08:39 | W.PM.OPSUD ---
Surgery/Procedure H&P Update DATE OF PROCEDURE: October 12, 2022 DATE H&P PERFORMED: 09/18/22 H&P UPDATE INFORMATION: No changes to prior documentation PREOP DIAGNOSIS: Left breast atypical hyperplasia. PLANNED PROCEDURE: Operation Date: 10/12/22 09:00 Proposed Procedures p Left Breast lumpectomy [place] 84832 Ultra sound room 2(Left) - Low Phillips MD
[2022-10-12] MEDS: ceFAZolin 2,000 MG in sodium chloride 0.9% (plus) 50 ML 100 MG IV (09:41)
--- NOTE | 2022-10-12 10:13 | MM_ITS ---
WS: [id number] STEREOTACTIC LEFT BREAST NEEDLE LOCALIZATION HISTORY: Indeterminate stereotactic biopsy of calcifications in the LEFT breast. COMPARISON: 08/21/2022, 07/20/2022 and 07/16/2022 Procedure, risks and complications are explained to the patient. Consent has been obtained. Localization of calcifications is done with stereotactic technique. Skin is cleansed with ChloraPrep and anesthetized with 1% buffered lidocaine. Kopans needle is inserted to the level of the calcificat ions. Needle is advanced 1.0 cm beyond the calcifications. Calcifications are localized to the lateral LEFT breast. Postprocedure the wire extends 1.0 cm calcif ications. The calcifications extend in the linear distribution. The clip is within 1 cm of the wire. The wire is placed between groups of calcifications. This was discussed with Dr. Phillips prior to surgery . Wire is secured and the patient is sent to the OR with no complications. SPECIMEN RADIOGRAPH: Calcifications in the clip and the wire are obtained within the specimen. MM/MM surgical specimen LT IMPRESSION: 1. Uncomplicated wire localization of calcifications and clip in the LEFT [address]. The wire is centered between groups of calcifications and adjacent to the p rior biopsy clip. PATHOLOGY: Focus of atypical hyperplasia with apocrine metaplasia. Prior biopsy site identified. No malignancy. Fibrocystic changes. RECOMMENDATION: Diagnostic LEFT mammogram in 6 month follow-up.
--- NOTE | 2022-10-12 10:16 | PM.OP ---
Operative Report Date of procedure: October 12, 2022 Pre-op diagnosis: Preop Diagnosis Left breast atypical hyperplasia. Post-op diagnosis: Same. Procedure done: Left breast lumpectomy following preoperative needle localization. Specimens removed/disposition: Left breast lumpectomy. Long suture anteriorly, short suture superiorly. Surgeon: General Surgery Low Phillips MD Anesthesia: MAC Estimated blood loss: 5 Complications: None. Procedure: The patient was brought to the operating room and was placed in a supine position on the operating room table. A monitored anesthetic was induced. The left breast was prepped and draped in a sterile fashion, taking care not to disturb the localization wire which had been placed in radiology preoperatively. A combination of 1% lidocaine and 0.5% bupivacaine with 1-200,000 parts epinephrine was used for local anesthesia throughout the procedure. The wire entered the breast somewhat laterally. A curvilinear incision was created just adjacent to the wire and cautery was used to enter the breast tissue. The localization wire was brought into the incision. Cautery was used to follow the wire until the hub of the needle was identified. An Allis clamp was used to grasp the hub and the surrounding breast tissue. A fairly generous piece of tissue surrounding the end of the wire was then taken using a combination of sharp dissection and cautery (the patient's calcifications were somewhat spread out on imaging). Larger vessels were ligated with ties of 3-0 Vicryl. Cautery otherwise was used to maintain hemostasis. Before the specimen was completely removed a long suture of 0 Vicryl was placed anteriorly and a short suture of 0 Vicryl was placed superiorly for specimen/pathologic orientation. The wound was irrigated with saline and hemostasis was good. The patient appeared to have some fibrocystic tissue medially and a little inferiorly. The dissection had been carried out nearly to the chest wall on the anterior and lateral surface. No other abnormalities were seen or felt anywhere in the wound. The skin was reapproximated using a running subcuticular suture of 4-0 Vicryl. Benzoin and Steri-Strips were placed over the incision and a sterile bandage followed. The patient was taken to the recovery area in stable condition postoperatively.
[2022-10-12] MEDS: lidocaine 1% INJ 20 mL XX (10:20)
--- NOTE | 2022-10-12 10:30 | SUR.PHASEI ---
10:30 ORAL AIRWAY DC'ED . AIRWAY PATENT.VENTILATING WELL. NSR ON MONITOR.
--- NOTE | 2022-10-12 12:35 | ANE.PACU2 ---
Inpatient post-anesthesia follow up: Airway intact: Yes Vital signs: Temperature 97.4 F Pulse Rate 80 Respiratory Rate 17 Blood Pressure 144/95 Pulse Oximetry 98 Oxygen Delivery Me thod Room Air Oxygen Flow Rate 8 Fraction of Inspir ed Oxygen Hydration adequate: Yes Nausea and vomiting: No Pain level: 1 Mental status: Baseline
== END | disposition home or self-care (01) ==
PROVIDERS: PCP Family Medicine; Visit Provider Surgery
PROC: (CPT 19120; principal; 2022-10-12 09:00)
DX: N60.92 Unspecified benign mammary dysplasia of left breast (principal); F17.210 Nicotine dependence, cigarettes, uncomplicated
CPT/HCPCS: 19301; 19281; 88307; C1889; J0690; J2250; J2704; J3010; J7030

== ENCOUNTER 2023-03-11 10:59 | Outpatient (CLI) | payer MEDICARE, MEDICAID, SELFPAY ==
--- NOTE | 2023-03-11 11:06 | MM_ITS ---
WS: [id number] LEFT 3D TOMOSYNTHESIS DIGITAL MAMMOGRAPHY WITH CAD CLINICAL INFORMATION: 6MFU POST BX HISTORY: Six-month follow-up stereotactic biopsy with surgical excision. Atypical hyperplasia. COMPARISON: October 12, 2022 TECHNIQUE: 3 views of the left breast were obtained. FINDINGS: The left breast is composed of heterogeneous fibroglandular density tissue, which can limit the detec tion of small underlying mass lesions. Postoperative changes LEFT breast lumpectomy with excision of the previously described calcifications. Associated parenchymal fibrosis LEFT breast. Prior biopsy clip was resected with the specimen. Small punctate calcifications outer LEFT breast kristi ear more numerous compared to previous but probably benign. Recommend LEFT breast diagnostic mammogra phy with spot magnification views at the time of next annual screening in 6 months. No other suspicious findings. MM/[place] [id number] IMPRESSION: BI-RADS: 3-Probably Benign FOLLOW UP: 6 Month Follow-up Recommend LEFT breast diagnostic mammography with spot magnification views of t he punctate calcifications outer LEFT breast.
== END 2023-03-11 11:00 | disposition home or self-care (01) ==
LOC: RAD 11:02
PROVIDERS: PCP Family Medicine; Visit Provider Family Medicine
DX: N64.4 Mastodynia (principal); R92.1 Mammographic calcification found on diagnostic imaging of breast
CPT/HCPCS: 77061; G0279

== ENCOUNTER 2023-04-11 14:00 | Outpatient (CLI) | payer MEDICARE, MEDICAID, SELFPAY | END 2023-04-11 14:01 | disposition home or self-care (01) | LOC: SLEEP 04-15 07:33 | PROVIDERS: PCP Family Medicine; Visit Provider Family Medicine | DX: G47.10 Hypersomnia, unspecified (principal) | CPT/HCPCS: G0399 ==

== ENCOUNTER 2023-04-25 18:15 | Emergency (ER) | payer MEDICARE, MEDICAID, SELFPAY ==
[2023-04-25 18:24] VITALS: BP 163/104; PULSE 89; RESP 16; TEMP 36.6; O2SAT 96
[2023-04-25 18:29] VITALS: BP 159/80; PULSE 85; O2SAT 92
--- NOTE | 2023-04-25 18:49 | W.ED.GIBLEED ---
HPI - GI Bleed General: Chief complaint: Wound/Laceration Stated complaint: Bloeeding From Surgury Today Time Seen by Provider: 04/25/23 18:34 Source: patient Mode of arrival: ambulatory Limitations: no limitations History of Present Illness: Patient is a 47-year-old female presents to ED today for evaluation of rectal bleeding following a hemorrhoidectomy by Dr. Phillips earlier this morning. Patient states she removed the gauze as instructed and states following this she noticed what she perceived to be a lot of bright red blood on her underwear. She said bleeding seemed to worsen when she was up and walking. MD complaint: other (bleeding following hemorrhoidectomy) Onset (ago): hour(s) Pain Consistency: other (seems to be improved while here) Severity: mild Relieving factors: none Context: hemorrhoids Associated symptoms: Reports no associated symptoms Review of Systems GI: Reports: rectal pain (Hemorrhoidectomy this morning) and other (rectal bleeding) Neuro: Denies: dizziness PFSH ED PFSH: Medical History Breast mass in female Thyroid disease Surgical History H/O neck surgery H/O: hysterectomy Family History Other Cancer Diabetes Hyperlipidemia Hypertension Denies family history of CAD (coronary artery disease) Clotting disorder Dementia Psychiatric illness Chronic kidney disease (CKD) Suicide Anesthesia complication Bleeding disorder Family history of premature coronary artery disease Lung disease Stroke Social History Smoking and tobacco status: current every day smoker cigarettes Packs smoked per day: 1 Years cigarettes smoked: 35 Second hand smoke exposure: No Alcohol intake: never Substance/Drug Use: former Household members: none Physical Exam Const: COMMON NORMALS: no acute distress, average body habitus, no limitations, healthy appearing, alert and well nourished GI: COMMON NORMALS: Normal to inspection, nondistended, normoactive bowel sounds present, Soft to palpation, non-tender, No hepatosplenomegaly present and no masses AUSCULTATION: Yes normoactive bowel sounds PALPATION: Yes Soft to palpation and Yes No hepatosplenomegaly present OTHER: external rectal examination reveals no active bleeding; she has a towel that she has been sitting on throughout her stay and it has about 2-3 tablespoons worth of dried blood on it Neuro: SENSORIUM/ORIENTATION: Yes alert Course Vital Signs: Vital signs: Vital Signs Temperature 97.9 F 04/25/23 19:07 Pulse Rate 76 04/25/23 19:07 Respiratory Rate 16 04/25/23 19:07 Blood Pressure 132/80 04/25/23 19:07 Pulse Oximetry 95 04/25/23 19:07 Oxygen Delivery Me thod Room Air 04/25/23 18:24 MDM - GI Bleed Medical Decision Making At this time patient most likely is having normal bleeding post hemorrhoidectomy. Discussed continuing normal postop instructions including sitz baths and stool softeners. Monitoring for worsening bleeding and returning to the ED if this occurs otherwise she can contact Dr. Phillips in the morning if bleeding persists. Discharge Plan Discharge Patient Disposition: Home Clinical Impression: Status post hemorrhoidectomy, Rectal bleeding Condition: Stable Prescriptions: No Action azithromycin 250 mg tablet See Rx Instructions PO .COMPLEX Qty: 6 0RF Rx Instructions: For 250 mg dose pack: take 500 mg today (day 1), then 250 mg for 4 days (days 2-5) PO meclizine 25 mg tablet 25 mg PO TID PRN (Reason: dizziness) Qty: 20 0RF Discharge Orders: Discharge ED (Routine); Ordered 04/25/23 Ordered By: Quin Hernandez Referrals: Trevor Dean MD [Primary Care Provider] - Activity Restrictions/Additional Instructions: As we discussed please contact Dr. Phillips tomorrow if bleeding persists and has not slowed down. As we discussed you need to return to the emergency department if bleeding worsens or becomes severe. We quantified this as enough to soak a pad every 1-2 hours. Continue all your normal postop instructions such as stool softeners and sitz baths. Coding Level of Care Code ED Pharmacy Intake Coordinator for Sachin Lozada
[2023-04-25 19:06] VITALS: BP 132/80; PULSE 76; RESP 16; O2SAT 95
[2023-04-25 19:07] VITALS: BP 132/80; PULSE 76; RESP 16; TEMP 36.6; O2SAT 95
== END 2023-04-25 19:08 | disposition home or self-care (01) ==
PROVIDERS: Emergency Provider Physician Assistant; PCP Family Medicine
DX: K62.5 Hemorrhage of anus and rectum (principal); Z98.890 Other specified postprocedural states; F17.210 Nicotine dependence, cigarettes, uncomplicated
CPT/HCPCS: 99282

== ENCOUNTER 2023-05-31 18:11 | Emergency (ER) | payer MEDICARE, MEDICAID, SELFPAY ==
[2023-05-31 18:28] VITALS: BP 181/111; PULSE 88; RESP 17; O2SAT 96; BMI 24.3
--- NOTE | 2023-05-31 18:56 | W.ED.ABDPA2 ---
HPI - Abdominal Pain General: Chief Complaint: Abdominal Pain Stated Complaint: Lower Pack pain /Stomach pain Time Seen by Provider: 05/31/23 18:55 History of Present Illness: 47-year-old female comes in today with complaints of right flank pain radiating to the groin. Patient has a history of renal stones. Patient has had her appendix and gallbladder removed she states. Patient appears nontoxic. Patient appears in mild to moderate pain. Associated Symptoms: Reports nausea Review of Systems General: Reports: 10 or more systems reviewed and unremarkable except in HPI and below GI: Reports: abdominal pain and nausea : Reports: flank pain PFSH ED PFSH: Medical History Breast mass in female Thyroid disease Surgical History H/O neck surgery H/O: hysterectomy Family History Other Cancer Diabetes Hyperlipidemia Hypertension Denies family history of CAD (coronary artery disease) Clotting disorder Dementia Psychiatric illness Chronic kidney disease (CKD) Suicide Anesthesia complication Bleeding disorder Family history of premature coronary artery disease Lung disease Stroke Social History Smoking and tobacco status: current every day smoker cigarettes Packs smoked per day: 1 Years cigarettes smoked: 35 Second hand smoke exposure: No Alcohol intake: never Substance/Drug Use: former Household members: none Physical Exam Const: COMMON NORMALS: alert HENMT: COMMON NORMALS: normocephalic HEAD & SCALP: normocephalic Neck/C-Spine: COMMON NORMALS: full ROM Resp: COMMON NORMALS: normal respiratory effort and clear to auscultation bilaterally AUSCULTATION: clear to auscultation bilaterally Cardio: COMMON NORMALS: regular rate RATE: regular rate Back/Pelvis: COMMON NORMALS: thoracic and lumbar spine normal to inspection Extremity: COMMON NORMALS: full ROM Neuro: SENSORIUM/ORIENTATION: Yes alert Skin: COMMON NORMALS: turgor normal GENERAL SKIN EXAM: turgor normal Course Vital Signs: Vital signs: Vital Signs Pulse Rate 88 05/31/23 18:28 Respiratory Rate 17 05/31/23 18:28 Blood Pressure 181/111 05/31/23 18:28 Pulse Oximetry 96 05/31/23 18:28 MDM - Abdominal Pain Medical Decision Making 47-year-old female comes in today for complaints of right flank pain radiating to the groin. Patient appears nontoxic. Patient appears in moderate pain. On exam patient has some CVA tenderness to percussion. Abdomen soft and nontender. Bowel sounds are present. Differential diagnosis includes pyelonephritis, renal calculi, hydronephrosis, gastroenteritis, pancreatitis. Laboratory values were unremarkable. Urine was clean without signs of infection. CT of the abdomen pelvis noted a renal stone but no signs of hydronephrosis or ureteral obstructing stone. Remainder of exam was unremarkable. Believe patient probably has some renal colic and will recommend follow-up with urology for further treatment and evaluation. Patient reported understanding and agreed to plan. Lab Data 05/31/23 19:05 05/31/23 19:05 Labs/Radiology: Radiology Impressions Abdomen/Pelvis CT 05/31/23 19:10 IMPRESSION: 1. Mild distention of the right renal lower pole moiety, secondary to a 1.4 cm lower pole calculus. 2. Additional findings, as above. Laboratory Results WBC 9.0 10^3/uL (4.0-10.0) 05/31/23 19:05 RBC 5.10 10^6/uL (4.1-5.3) 05/31/23 19:05 Hgb 14.9 g/dL (11.5-15.3) 05/31/23 19:05 Hct 45.0 % (37.0-47.0) 05/31/23 19:05 MCV 88.2 fl (81-99) 05/31/23 19:05 MCH 29.2 pg (28.0-34.0) 05/31/23 19:05 MCHC 33.1 g/dL (30.0-36.0) 05/31/23 19:05 RDW 13.8 % (12.1-15.1) 05/31/23 19:05 Plt Count 235 10^3/cmm (130-400) 05/31/23 19:05 MPV 11.1 fL (7.4-10.4) H 05/31/23 19:05 Neut % (Auto) 59.2 % 05/31/23 19:05 Lymph % (Auto) 24.1 % 05/31/23 19:05 [place] % (Auto) 10.1 % 05/31/23 19:05 Eos % (Auto) 5.8 % 05/31/23 19:05 Baso % (Auto) 0.6 % 05/31/23 19:05 Neut # (Auto) 5.35 10^3/uL (1.8-7.7) 05/31/23 19:05 Lymph # (Auto) 2.2 10^3/uL (0.8-4.8) 05/31/23 19:05 [place] # (Auto) 0.9 10^3/uL (0.2-0.9) 05/31/23 19:05 Eos # (Auto) 0.5 10^3/uL (0.0-0.8) 05/31/23 19:05 Baso # (Auto) 0.1 10^3/uL (0.0-0.1) 05/31/23 19:05 Nucleated RBC % (auto) 0 % 05/31/23 19:05 Nucleated RBCs # 0.0 /100WBC 05/31/23 19:05 Sodium 140 mmol/L (136-145) 05/31/23 19:05 Potassium 4.1 mmol/L (3.5-5.1) 05/31/23 19:05 Chloride 107 mmol/L (98-107) 05/31/23 19:05 Carbon Dioxide 23 mmol/L (22-29) 05/31/23 19:05 Anion Gap 14.1 (5-19) 05/31/23 19:05 BUN 14 mg/dL (6-20) 05/31/23 19:05 Creatinine 0.8 mg/dL (0.5-0.9) 05/31/23 19:05 GFR Calculation 76.2 mL/min (90-130) L 05/31/23 19:05 Glucose 82 mg/dL (65-115) 05/31/23 19:05 Calculated Osmolality 290 mOsm/kg (285-295) 05/31/23 19:05 Calcium 9.1 mg/dL (8.5-10.5) 05/31/23 19:05 Total Bilirubin 0.7 mg/dL (0.15-1.2) 05/31/23 19:05 AST 11 U/L (0-32) 05/31/23 19:05 ALT 9 U/L (0-33) 05/31/23 19:05 Alkaline Phosphatase 71 U/L (35-105) 05/31/23 19:05 Total Protein 6.8 g/dL (6.6-8.7) 05/31/23 19:05 Albumin 4.4 g/dL (3.5-5.2) 05/31/23 19:05 Globulin 2.4 g/dL (1.3-4.6) 05/31/23 19:05 Lipase 41 U/L (13-60) 05/31/23 19:05 HCG, Qual Negative (Negative) 05/31/23 19:05 Urine Color Yellow (Yellow) 05/31/23 19:45 Urine Appearance Clear (CLEAR) 05/31/23 19:45 Urine pH 5 (5-7) 05/31/23 19:45 Ur Specific [place] 1.020 (1.005-1.030) 05/31/23 19:45 Urine Protein Trace (Negative) 05/31/23 19:45 Urine Glucose (UA) 4+ (Normal) H 05/31/23 19:45 Urine Ketones 1+ (Negative) H 05/31/23 19:45 Urine Blood Neg (Negative) 05/31/23 19:45 Urine Nitrate Negative (Negative) 05/31/23 19:45 Urine Bilirubin Neg (Negative) 05/31/23 19:45 Urine Urobilinogen 1 mg/dL (Negative) H 05/31/23 19:45 Ur Leukocyte Esterase Negative (Negative) 05/31/23 19:45 Urine RBC None /hpf (0-2) 05/31/23 19:45 Urine WBC 0-4 /hpf (0-5) H 05/31/23 19:45 Ur Squamous Epith Cells 0-4 /hpf (0-5) H 05/31/23 19:45 Amorphous Sediment Not Reportable 05/31/23 19:45 Urine Bacteria Trace /hpf (NONE) 05/31/23 19:45 Hyaline Casts Rare /lpf 05/31/23 19:45 Discharge Plan Discharge Patient Disposition: Home Clinical Impression: Renal colic on right side Condition: Stable Prescriptions: New hydrocodone-acetaminophen 5-325 mg tablet 1 tab PO Q6H PRN (Reason: pain (scale score 7-10)) Qty: 12 0RF promethazine 12.5 mg tablet 12.5 mg PO TID PRN (Reason: nausea and vomiting) Qty: 12 0RF Rx Instructions: 3 doses during day; last dose no later than 4 hr before bedtime No Action azithromycin 250 mg tablet See Rx Instructions PO .COMPLEX Qty: 6 0RF Rx Instructions: For 250 mg dose pack: take 500 mg today (day 1), then 250 mg for 4 days (days 2-5) PO meclizine 25 mg tablet 25 mg PO TID PRN (Reason: dizziness) Qty: 20 0RF Discharge Orders: Discharge ED (Routine); Ordered 05/31/23 Ordered By: Luisito Boyer Referrals: Trevor Dean MD [Primary Care Provider] - Discharge Diet: Usual diet Discharge Activity: Increase activity as tolerated Patient Instructions: Renal Colic (ED) Activity Restrictions/Additional Instructions: Drink plenty of water and fluids. Activity as tolerated. Use acetaminophen and ibuprofen to control pain. Use hydrocodone for severe pain. Use Phenergan as needed for nausea. Follow-up with primary care as needed. Case management will contact you for assistance with urology follow-up. Coding Level of Care Code ED Medical Record Librarians Teacher for Sachin Lozada
--- NOTE | 2023-05-31 19:10 | CTR_ITS ---
PROCEDURE INFORMATION: Exam: CT Abdomen And Pelvis Without Contrast Exam date and time: 05/31/2023 7:30 PM Age: 47 years old Clinical indication: Abdominal pain; Right; Prior surgery; Surgery date: 6+ months; Surgery type: Gb. Appy. Hysterectomy. Patient HX: C/O RT flank pain; Additional info: RT flank pain radiating to groin TECHNIQUE: Imaging protocol: Computed tomography of the abdomen and pelvis without contrast. Axial, coronal and sagittal reformatted images were created and reviewed. Radiation optimization: All CT scans at this facility use at least one of these dose optimization techniques: automated exposure control; mA and/or kV adjustment per patient size (includes targeted exams where dose is matched to clinical indication); or iterative reconstruction. REPORTING DATA: Count of CT and Cardiac NM exams in prior 12 months: This patient has received [address] and 0 known cardiac nuclear medicine studies in the 12 months prior to the current study. COMPARISON: CT kidney stone [id number] 06/01/2022 6:10 AM RADIATION DOSE METRICS: Total DLP (mGy-cm): 455.2 FINDINGS: Heart: Trace inferior pericardial fluid. Diaphragm: Small hiatal hernia. Elevated left hemidiaphragm. Liver: Unchanged 2.1 cm low-density lesion in the right hepatic lobe. Gallbladder and bile ducts: Status post cholecystectomy. No biliary ductal dilatation. Pancreas: Unremarkable. Spleen: Unremarkable. Adrenal glands: Normal. No mass. Kidneys and ureters: Nonobstructing bilateral renal calculi, measuring up to 1.4 cm in the lower pole on the right. Mild distention of the right renal lower pole moiety. Stomach and bowel: No bowel wall thickening. No obstruction. No pneumatosis. Appendix: Appendix not identified with certainty but no right lower quadrant inflammatory change to suggest acute appendicitis. Intraperitoneal space: No free fluid. No organized fluid collection. No free air. Vasculature: Minimal atherosclerotic disease. No aneurysm. Lymph nodes: No pathologically enlarged lymph nodes. Urinary bladder: Unremarkable as visualized. Reproductive: Status post hysterectomy. Bones/joints: No acute osseous abnormality. Osteopenia. Mild degenerative changes. Soft tissues: Small, fat containing umbilical and infraumbilical hernias. CT/CT kidney stone [id number] IMPRESSION: 1. Mild distention of the right renal lower pole moiety, secondary to a 1.4 cm lower pole calculus. 2. Additional findings, as above.
[2023-05-31 19:13] LABS: Basophils # 0.1 10^3/uL (0.0-0.1); Basophils % 0.6 %; Eosinophils # 0.5 10^3/uL (0.0-0.8); Eosinophils % 5.8 %; Hemoglobin 14.9 g/dL (11.5-15.3); Lymphocytes # 2.2 10^3/uL (0.8-4.8); Lymphocytes % 24.1 %; Mean Corpuscular HGB Conc 33.1 g/dL (30.0-36.0); Mean Corpuscular Hemoglobin 29.2 pg (28.0-34.0); Mean Corpuscular Volume 88.2 fl (81-99); Mean Platelet Volume 11.1 fL (7.4-10.4); Monocytes # 0.9 10^3/uL (0.2-0.9); Monocytes % 10.1 %; Neutrophils # 5.35 10^3/uL (1.8-7.7); Neutrophils % 59.2 %; Nucleated Red Blood Cells % 0 %; Platelet Count 235 10^3/cmm (130-400); Red Cell Distribution Width 13.8 % (12.1-15.1)
[2023-05-31 19:26] LABS: HCG, Serum Qual Negative (Negative)
[2023-05-31 19:33] LABS: Alanine Aminotransferase 9 U/L (0-33); Albumin Level 4.4 g/dL (3.5-5.2); Alkaline Phosphatase 71 U/L (35-105); Anion Gap 14.1 (5-19); Aspartate Amino Transferase 11 U/L (0-32); Blood Urea Nitrogen 14 mg/dL (6-20); Calcium 9.1 mg/dL (8.5-10.5); Carbon Dioxide 23 mmol/L (22-29); Chloride 107 mmol/L (98-107); Globulin 2.4 g/dL (1.3-4.6); Glomerular Filtration Rate 76.2 mL/min (90-130); Glucose 82 mg/dL (65-115); Lipase 41 U/L (13-60); Osmolality Calculated 290 mOsm/kg (285-295); Potassium 4.1 mmol/L (3.5-5.1); Sodium 140 mmol/L (136-145); Total Bilirubin 0.7 mg/dL (0.15-1.2); Total Protein 6.8 g/dL (6.6-8.7)
[2023-05-31] MEDS: morphine 4 mg/mL SDV 1 mL IVP (19:49)
[2023-05-31] MEDS: ketorolac 30 mg/mL INJ 15 MG IVP (19:49)
[2023-05-31] MEDS: promethazine 25 mg/mL SDV 1 mL 12.5 MG IM (19:54)
[2023-05-31 20:37] LABS: Add Urine Microscopic? YES; Bilirubin Urine Neg (Negative); Blood Urine Neg (Negative); Glucose Urine UA 4+ (Normal); Ketones Urine 1+ (Negative); Leukocyte Esterase Urine Negative (Negative); Nitrate Urine Negative (Negative); Protein Urine Trace (Negative); Urine Appearance Clear (CLEAR); Urine Color Yellow (Yellow); Urobilinogen Urine 1 mg/dL (Negative); pH Urine 5 (5-7)
[2023-05-31 20:38] LABS: Add Urine Culture? No; Bacteria Urine TRACE /hpf; Hyaline Casts Urine RARE /lpf; Squamous Epithelial Cell Urine 0-4 /hpf (0-5); WBC Urine 0-4 /hpf (0-5)
--- NOTE | 2023-06-03 14:23 | DCPLANNER ---
Addendum entered by Tanisha Adams 06/07/23 11:35: clinical trial data manager called [facility] urology to confirm that patients information had been received. clinical trial data manager told that patients information had been received, it will be reviewed, and clinic will call patient with appointment information. Original Note: clinical trial data manager had message to schedule a follow up appointment for patient with urology. clinical trial data manager spoke with patient to confirm where patient wanted urology referral sent, due to [facility] not having a urologist. Patient stated that she wanted referral sent to [facility] in [place]. clinical trial data manager sent patients information to [facility] urology. patients information will be reviewed, clinic will call patient with appointment information.
== END 2023-05-31 21:05 | disposition home or self-care (01) ==
PROVIDERS: Emergency Provider Nurse Practitioner Family; PCP Family Medicine
DX: N20.0 Calculus of kidney (principal); N23 Unspecified renal colic; F17.210 Nicotine dependence, cigarettes, uncomplicated
CPT/HCPCS: 36415; 74176; 80053; 81001; 83690; 84703; 85025; 96372; 96374; 96375; 99284; J1885; J2270; J2550

== ENCOUNTER 2023-09-12 14:58 | Emergency (ER) | payer MEDICARE, MEDICAID, SELFPAY ==
[2023-09-12 15:05] VITALS: BP 171/126; PULSE 89; RESP 16; TEMP 36.5; O2SAT 98; BMI 24.3
--- NOTE | 2023-09-12 15:23 | XRR_ITS ---
PROCEDURE INFORMATION: Exam: XR Cervical Spine Exam date and time: 09/12/2023 3:47 PM Age: 48 years old Clinical indication: Neck pain; Prior surgery; Surgery date: 6+ months TECHNIQUE: Imaging protocol: Radiologic exam of the cervical spine. Views: 2 or 3 views. COMPARISON: CR XR cervical spine 4-5V [id number] 05/19/2021 11:12 AM FINDINGS: Bones/joints: Postsurgical changes are seen related to anterior fusion hardware C3-4 and C5-6 levels. Posterior fusion hardware noted C3-4 through C6-7 levels. Mild straightening of the cervical curvature. Alignment appears unremarkable. Slight disc space narrowing C2-3 above the level of fusion. Cervical vertebral body heights appear maintained. No fracture or acute osseous abnormality. Soft tissues: Paravertebral soft tissues show no significant abnormality. Other findings: No significant change with prior exam. XR/XR cervical spine 3V* [id number] IMPRESSION: Postsurgical changes of the cervical spine as noted above and stable appearance with previous exam. No acute findings.
--- NOTE | 2023-09-12 15:59 | ED_ITS ---
HPI - Neck Pain/Injury General: Chief Complaint: Neck Pain/Injury Stated Complaint: neck pain Time Seen by Provider: 09/12/23 15:59 History of Present Illness: 48-year-old female comes in today for complaints of neck pain radiating to her head. Patient has a history of fusion of cervical spine. Yesterday patient was lifting up a bucket and since then has had pain on the right cervical spine with headache. Patient appears nontoxic. Patient appears in mild to moderate pain. Associated symptoms: Reports headache(s) Review of Systems General: Reports: 10 or more systems reviewed and unremarkable except in HPI and below Musc: Reports: neck pain Neuro: Reports: headache(s) PFSH ED PFSH: Medical History Breast mass in female Thyroid disease Surgical History H/O neck surgery H/O: hysterectomy Family History Other Cancer Diabetes Hyperlipidemia Hypertension Denies family history of CAD (coronary artery disease) Clotting disorder Dementia Psychiatric illness Chronic kidney disease (CKD) Suicide Anesthesia complication Bleeding disorder Family history of premature coronary artery disease Lung disease Stroke Social History Smoking and tobacco/nicotine status: current every day tobacco/nicotine user cigarettes Packs smoked per day: 1 Years cigarettes smoked: 35 Second hand smoke exposure: No Alcohol intake: never Substance/Drug Use: former Household members: none Physical Exam Const: COMMON NORMALS: alert HENMT: COMMON NORMALS: normocephalic and Normal external nose present HEAD & SCALP: normocephalic NOSE: Normal external nose present Neck/C-Spine: CERVICAL SPINE: No Cervical spine tenderness and Yes Paracervical muscle tenderness right Resp: COMMON NORMALS: normal respiratory effort and clear to auscultation bilaterally AUSCULTATION: clear to auscultation bilaterally Cardio: COMMON NORMALS: regular rate and regular rhythm RATE: regular rate RHYTHM: regular rhythm GI: COMMON NORMALS: non-tender Back/Pelvis: COMMON NORMALS: thoracic and lumbar spine normal to inspection Extremity: COMMON NORMALS: no pedal edema Neuro: SENSORIUM/ORIENTATION: Yes alert Skin: COMMON NORMALS: turgor normal GENERAL SKIN EXAM: turgor normal Course Vital Signs: Vital signs: Vital Signs Temperature 97.7 F 09/12/23 15:05 Pulse Rate 89 09/12/23 15:05 Respiratory Rate 16 09/12/23 15:05 Blood Pressure 171/126 09/12/23 15:05 Pulse Oximetry 98 09/12/23 15:05 Oxygen Delivery Me thod Room Air 09/12/23 15:05 MDM - Neck Pain/Injury Medical Decision Making 48-year-old female comes in today for complaints of neck pain and headache. Patient had lifted a bucket yesterday and has a history of cervical fusion. Since then patient has had persistent neck pain causing headache. Patient appears nontoxic. Respirations are even lungs are clear to auscultation. Abdomen soft nontender. No edema is noted in the extremities. No focal neural deficits are noted. Vital signs normal except for some mild elevation of blood pressure. Differential diagnosis includes but not limited to cervical strain, displacement of surgical hardware, fracture. X-ray of the cervical spine was unremarkable. Patient was given a injection of ketorolac, Reglan, and dexamethasone with improvement of pain. Patient be continued on Celebrex and Reglan along with hydrocodone as needed. Patient reported understanding of care plan and need for follow-up or return to the ER. Lab Data Radiology Impressions Cervical Spine X-Ray 09/12/23 15:23 IMPRESSION: Postsurgical changes of the cervical spine as noted above and stable appearance with previous exam. No acute findings. All radiology interpretation(s) finalized by discharge Discharge Plan Discharge Patient Disposition: Home Clinical Impression: Strain of neck muscle Qualifiers: Encounter type: initial encounter Qualified Code(s): S16.1XXA - Strain of muscle, fascia and tendon at neck level, initial encounter Condition: Stable Prescriptions: New metoclopramide HCl 10 mg tablet 10 mg PO Q6H PRN (Reason: nausea and vomiting) Qty: 7 0RF hydrocodone-acetaminophen 5-325 mg tablet 1 tab PO Q6H PRN (Reason: pain (scale score 7-10)) Qty: 7 0RF celecoxib 200 mg capsule 200 mg PO BID Qty: 14 0RF Rx Instructions: for pain and inflammation No Action cefdinir 300 mg capsule 300 mg PO BID 10 Days Qty: 20 0RF albuterol sulfate [Ventolin HFA] 90 mcg/actuation HFA aerosol inhaler 2 puff inhalation QID PRN (Reason: shortness of breath or wheezing) Qty: 18 2RF methylprednisolone [Medrol (Ba)] 4 mg tablets,dose pack See Rx Instructions PO PER PKG DIR Qty: 21 0RF Rx Instructions: PO PER PKG DIR Discharge Orders: Discharge ED (Routine); Ordered 09/12/23 Ordered By: Luisito Boyer Referrals: Trevor Dean MD [Primary Care Provider] - Discharge Diet: Usual diet Discharge Activity: Increase activity as tolerated Patient Instructions: Cervical Strain (ED) Activity Restrictions/Additional Instructions: Try to maintain normal activity. Take celecoxib 200 mg twice a day for pain and inflammation. Use acetaminophen for further pain relief. Use hydrocodone for severe pain. Use metoclopramide 10 mg 1 every 6 hours as needed for nausea or vomiting. Return to ER for worsening symptoms or new concerns. 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
[2023-09-12] MEDS: ketorolac 30 mg/mL INJ IM (16:17)
[2023-09-12] MEDS: dexamethasone 10 mg/mL INJ IM (16:19)
[2023-09-12] MEDS: metoclopramide 5 mg/mL SDV 2 mL 10 MG IM (16:21)
[2023-09-12] MEDS: HYDROcodone-acetaminophen 7.5-325 mg Tablet 1 TAB PO (18:08)
[2023-09-12 18:12] VITALS: BP 171/126; PULSE 89; RESP 16; O2SAT 98
== END 2023-09-12 18:13 | disposition home or self-care (01) ==
PROVIDERS: Emergency Provider Nurse Practitioner Family; PCP Family Medicine
DX: S16.1XXA Strain of muscle, fascia and tendon at neck level, initial encounter (principal); F17.210 Nicotine dependence, cigarettes, uncomplicated; X50.0XXA Overexertion from strenuous movement or load, initial encounter
CPT/HCPCS: 72040; 96372; 99284; J1100; J1885; J2765

== ENCOUNTER 2023-12-11 17:42 | Emergency (ER) | payer MEDICARE, MEDICAID, SELFPAY ==
[2023-12-11 17:53] VITALS: BP 167/87; PULSE 76; RESP 17; TEMP 36.6; O2SAT 96; BMI 24.3
--- NOTE | 2023-12-11 18:19 | XRR_ITS ---
PROCEDURE INFORMATION: Exam: XR Chest Exam date and time: 12/11/2023 6:31 PM Age: 48 years old Clinical indication: Cough TECHNIQUE: Imaging protocol: Radiologic exam of the chest. Views: 1 view. COMPARISON: CR XR chest 1V portable [id number] 07/18/2021 10:52 AM FINDINGS: Lungs: Lungs are clear bilaterally. Pleural spaces: No pleural effusion. No pneumothorax. Heart/Mediastinum: Stable mild enlargement of the cardiac silhouette. Mediastinal contours are unremarkable. Bones/joints: Stable changes consistent with prior fusion in the visualized lower cervical spine. XR/XR chest 1V portable [id number] IMPRESSION: 1. No acute cardiopulmonary process. 2. Incidental/nonacute findings are listed in the report.
--- NOTE | 2023-12-11 18:27 | ED_ITS ---
HPI - URI/Sore Throat 2 General: Chief Complaint: Upper Respiratory Infection Stated Complaint: cough Time Seen by Provider: 12/11/23 18:19 History of Present Illness: 48-year-old female comes in today for co mplaints of cough and congestion patient reports illness 4 to 5 days. Patient appears mildly unwell but nontoxic. Normal respiratory effort. Patient appears in mild to moderate pain. Patient does use albuterol as needed for respiratory difficulty. Patient is a tobacco smoker. Associated symptoms: Reports chills, diarrhea, fever(s) and nausea Review of Systems 2 General: Reports: 10 or more systems reviewed and unremarkable except in HPI and below Const: Reports: fever(s), chills and body aches Resp: Reports: non-productive cough GI: Reports: nausea and diarrhea PFSH ED 2 PFSH: Medical History Breast mass in female Thyroid disease Surgical History H/O neck surgery H/O: hysterectomy Family History Other Cancer Diabetes Hyperlipidemia Hypertension Denies family history of CAD (coronary artery disease) Clotting disorder Dementia Psychiatric illness Chronic kidney disease (CKD) Suicide Anesthesia complication Bleeding disorder Family history of premature coronary artery disease Lung disease Stroke Social History Smoking and tobacco/nicotine status: current every day tobacco/nicotine user cigarettes Packs smoked per day: 1 Years cigarettes smoked: 35 Second hand smoke exposure: No Alcohol intake: never Substance/Drug Use: former Household members: none Physical Exam 2 Const: COMMON NORMALS: alert HENMT: COMMON NORMALS: normocephalic HEAD & SCALP: normocephalic Neck/C-Spine: COMMON NORMALS: full ROM Resp: COMMON NORMALS: normal respiratory effort AUSCULTATION: wheezes GI: COMMON NORMALS: Soft to palpation and non-tender PALPATION: Yes Soft to palpation Back/Pelvis: COMMON NORMALS: thoracic and lumbar spine normal to inspection Extremity: COMMON NORMALS: no pedal edema Neuro: SENSORIUM/ORIENTATION: Yes alert Skin: COMMON NORMALS: turgor normal GENERAL SKIN EXAM: turgor normal Course 2 Vital Signs: Vital signs: Vital Signs Temperature 97.8 F 12/11/23 17:53 Pulse Rate 76 12/11/23 17:53 Respiratory Rate 17 12/11/23 17:53 Blood Pressure 167/87 12/11/23 17:53 Pulse Oximetry 96 12/11/23 17:53 Oxygen Delivery Me thod Room Air 12/11/23 17:53 MDM - URI/Sore Throat Medical Decision Making 48-year-old female comes in today for complaints of cough and malaise. Patient appears mildly unwell but not toxic. Auscultation of lungs note good air movement but wheezing throughout. Skin is warm and dry. No edema is. Vital signs are normal except for some elevated blood pressure. Differential diagnosis includes but not limited to influenza, COVID, pneumonia, dehydration. Chest x-ray noted no pneumonia. CMP was normal. Patient was negative for flu and COVID. Will go ahead and treat for acute bronchitis with azithromycin and steroids. Patient was given steroids and a dose of Rocephin in the ER. Encourage fluids rest and follow-up with primary care return to ED for worsening symptoms. Patient reported understanding. Lab Data 12/11/23 19:24 12/11/23 19:24 Laboratory Results Sodium 140 mmol/L (136-145) 12/11/23 19:24 Potassium 3.7 mmol/L (3.5-5.1) 12/11/23 19:24 Chloride 107 mmol/L (98-107) 12/11/23 19:24 Carbon Dioxide 24 mmol/L (22-29) 12/11/23 19:24 Anion Gap 12.7 (5-19) 12/11/23 19:24 BUN 11 mg/dL (6-20) 12/11/23 19:24 Creatinine 0.6 mg/dL (0.5-0.9) 12/11/23 19:24 GFR Calculation 105.8 mL/min (90-130) 12/11/23 19:24 Glucose 85 mg/dL (65-115) 12/11/23 19:24 Calculated Osmolality 289 mOsm/kg (285-295) 12/11/23 19:24 Calcium 9.2 mg/dL (8.5-10.5) 12/11/23 19:24 Total Bilirubin 0.8 mg/dL (0.15-1.2) 12/11/23 19:24 AST 23 U/L (0-32) 12/11/23 19:24 ALT 17 U/L (0-33) 12/11/23 19:24 Alkaline Phosphatase 57 U/L (35-105) 12/11/23 19:24 Total Protein 6.8 g/dL (6.6-8.7) 12/11/23 19:24 Albumin 3.9 g/dL (3.5-5.2) 12/11/23 19:24 Globulin 2.9 g/dL (1.3-4.6) 12/11/23 19:24 Influenza Type A Ag Negative (Negative) 12/11/23 18:45 Influenza Type B Ag Negative (Negative) 12/11/23 18:45 SARS-CoV-2 Ag (Rapid) negative (Negative) 12/11/23 18:45 XR interpretation done by ED provider, pending radiology final review Discharge Plan Discharge Patient Disposition: Home Clinical Impression: Acute lower respiratory infection Condition: Stable Prescriptions: New prednisone 20 mg tablet 20 mg PO BID 5 Days Qty: 10 0RF azithromycin 250 mg tablet 250 mg PO DAILY 5 Days Qty: 6 0RF Rx Instructions: 2 tabs day one, 1 tab days 2-5 No Action cefdinir 300 mg capsule 300 mg PO BID 10 Days Qty: 20 0RF albuterol sulfate [Ventolin HFA] 90 mcg/actuation HFA aerosol inhaler 2 puff inhalation QID PRN (Reason: shortness of breath or wheezing) Qty: 18 2RF methylprednisolone [Medrol (Ba)] 4 mg tablets,dose pack See Rx Instructions PO PER PKG DIR Qty: 21 0RF Rx Instructions: PO PER PKG DIR metoclopramide HCl 10 mg tablet 10 mg PO Q6H PRN (Reason: nausea and vomiting) Qty: 7 0RF hydrocodone-acetaminophen 5-325 mg tablet 1 tab PO Q6H PRN (Reason: pain (scale score 7-10)) Qty: 7 0RF celecoxib 200 mg capsule 200 mg PO BID Qty: 14 0RF Rx Instructions: for pain and inflammation Discharge Orders: Discharge ED (Routine); Ordered 12/11/23 Ordered By: Luisito Boyer Referrals: Trevor Dean MD [Primary Care Provider] - Discharge Diet: Usual diet Discharge Activity: Increase activity as tolerated Patient Instructions: Acute Bronchitis (ED) Activity Restrictions/Additional Instructions: Drink plenty of water and fluids. Take medications as directed. Use albuterol inhaler as needed for cough and wheezing. Follow-up with primary care for further instructions. Return to ED for worsening symptoms. Coding Level of Care Code ED Rough Patcher for Sachin Lozada
[2023-12-11 19:09] LABS: SARS Covid-2 Antigen negative (Negative)
[2023-12-11] MEDS: ketorolac 30 mg/mL INJ 15 MG IVP (19:11)
[2023-12-11] MEDS: dexamethasone 10 mg/mL INJ IVP (19:12)
[2023-12-11] MEDS: sodium chloride 0.9% 500 ML 999 ML IV (19:14)
[2023-12-11 19:26] LABS: Influenza A by IFA Negative (Negative); Influenza B by IFA Negative (Negative)
[2023-12-11 19:53] LABS: Basophils % 0.7 %; Eosinophils # 0.2 10^3/uL (0.0-0.8); Eosinophils % 4.1 %; Hematocrit 43.5 % (36-47); Lymphocytes # 1.9 10^3/uL (0.8-4.8); Lymphocytes % 43.2 %; Mean Corpuscular HGB Conc 33.6 g/dL (30-55); Mean Corpuscular Hemoglobin 29.6 pg (27-33); Mean Corpuscular Volume 88.2 fl (85-98); Mean Platelet Volume 11.5 fL (7.4-10.4); Monocytes # 0.7 10^3/uL (0.2-0.9); Monocytes % 15.8 %; Neutrophils # 1.59 10^3/uL (1.8-7.7); Neutrophils % 36.2 %; Nucleated Red Blood Cells % 0 %; Platelet Count 179 10^3/cmm (157-399); Red Blood Count 4.93 10^6/uL (3.85-5.65); Red Cell Distribution Width 13.2 % (12.1-15.1); White Blood Count 4.38 10^3/uL (3.29-11.43)
[2023-12-11 20:11] LABS: Alanine Aminotransferase 17 U/L (0-33); Albumin Level 3.9 g/dL (3.5-5.2); Alkaline Phosphatase 57 U/L (35-105); Anion Gap 12.7 (5-19); Aspartate Amino Transferase 23 U/L (0-32); Blood Urea Nitrogen 11 mg/dL (6-20); Calcium 9.2 mg/dL (8.5-10.5); Carbon Dioxide 24 mmol/L (22-29); Chloride 107 mmol/L (98-107); Globulin 2.9 g/dL (1.3-4.6); Glomerular Filtration Rate 105.8 mL/min (90-130); Glucose 85 mg/dL (65-115); Osmolality Calculated 289 mOsm/kg (285-295); Potassium 3.7 mmol/L (3.5-5.1); Sodium 140 mmol/L (136-145); Total Bilirubin 0.8 mg/dL (0.15-1.2); Total Protein 6.8 g/dL (6.6-8.7)
[2023-12-11 20:26] LABS: Slide Review Slide Review Perform
[2023-12-11 20:42] VITALS: BP 150/99; PULSE 80; O2SAT 95
== END 2023-12-11 20:45 | disposition home or self-care (01) ==
PROVIDERS: Emergency Provider Nurse Practitioner Family; PCP Family Medicine
DX: J22 Unspecified acute lower respiratory infection (principal); F17.210 Nicotine dependence, cigarettes, uncomplicated
CPT/HCPCS: 36415; 71045; 80053; 85025; 87426; 87804; 96361; 96374; 96375; 99284; J1100; J1885; J7040

== ENCOUNTER → 2023-12-30 08:18 | Outpatient (BNVA) | payer MEDICARE, MEDICAID, SELFPAY | PROVIDERS: PCP Family Medicine; Visit Provider Podiatrist Foot & Ankle Surgery | DX: L60.8 Other nail disorders (principal); L60.3 Nail dystrophy | CPT/HCPCS: 99213 ==

== ENCOUNTER → 2024-02-13 07:05 | Outpatient (BNVA) | payer MEDICARE, MEDICAID, SELFPAY | PROVIDERS: PCP Family Medicine; Visit Provider Podiatrist Foot & Ankle Surgery | DX: L60.8 Other nail disorders (principal); L60.3 Nail dystrophy | CPT/HCPCS: 11750 ==

== ENCOUNTER 2024-02-18 15:22 | Emergency (ER) | payer MEDICARE, MEDICAID, SELFPAY ==
[2024-02-18] VITALS (7 sets, daily range): BP systolic 135–165; BP diastolic 96–132; PULSE 61–95; RESP 16–21; TEMP 36.8; O2SAT 95–99
[2024-02-18 15:46] LABS: Basophils # 0.1 10^3/uL (0.0-0.1); Basophils % 0.7 %; Eosinophils # 0.4 10^3/uL (0.0-0.8); Hematocrit 52.4 % (36-47); Lymphocytes # 2.4 10^3/uL (0.8-4.8); Lymphocytes % 22.5 %; Mean Corpuscular HGB Conc 33.6 g/dL (30-55); Mean Corpuscular Hemoglobin 30.1 pg (27-33); Mean Corpuscular Volume 89.6 fl (85-98); Mean Platelet Volume 11.5 fL (7.4-10.4); Monocytes # 1.1 10^3/uL (0.2-0.9); Monocytes % 10.4 %; Neutrophils # 6.55 10^3/uL (1.8-7.7); Nucleated Red Blood Cells % 0 %; Platelet Count 273 10^3/cmm (157-399); Red Blood Count 5.85 10^6/uL (3.85-5.65); Red Cell Distribution Width 13.4 % (12.1-15.1); White Blood Count 10.56 10^3/uL (3.29-11.43)
--- NOTE | 2024-02-18 16:05 | CTR_ITS ---
PROCEDURE INFORMATION: Exam: CT Abdomen And Pelvis Without Contrast Exam date and time: 02/18/2024 4:18 PM Age: 48 years old Clinical indication: Abdominal pain; Other: Mid abd pain; Prior surgery; Surgery date: 6+ months; Surgery type: Hyst, jenny; Additional info: Flank pain TECHNIQUE: Imaging protocol: Computed tomography of the abdomen and pelvis without contrast. COMPARISON: CT kidney stone [id number] 05/31/2023 7:30 PM RADIATION DOSE METRICS: Total DLP (mGy-cm): 547.43 FINDINGS: Lungs: Subsegmental bibasilar atelectasis. The visualized lung bases are otherwise clear. Diaphragm: No evidence of diaphragmatic defect. Liver: Indeterminate right hepatic lobe hypodensity, unchanged since May 2022 (image 34 of series 3). Otherwise grossly unremarkable. Gallbladder and bile ducts: Status post cholecystectomy. No evidence of intrahepatic or extrahepatic biliary dilatation. Pancreas: Grossly unremarkable. Spleen: Grossly unremarkable. Adrenal glands: Grossly unremarkable. Kidneys and ureters: Punctate nonobstructive renal stones measuring up to 2 mm on the left. Otherwise no evidence of renal parenchymal abnormality. No hydronephrosis or ureteral stone. Stomach and bowel: No evidence of bowel obstruction or perienteric inflammatory changes. There is prominence of the colonic submucosal fat suggestive of sequela of chronic inflammation. Appendix: The appendix is not visualized, however there are no findings to suggest appendicitis. Intraperitoneal space: No evidence of free air or fluid collection. Vasculature: No evidence of aneurysmal dilitation of abdominal aorta. Lymph nodes: No evidence of adenopathy. Urinary bladder: Grossly unremarkable. Reproductive: Status post hysterectomy. Bones/joints: No evidence of acute fracture or aggresive osseous lesion. Moderate L4-L5 and L5-S1 foraminal stenosis. Soft tissues: No evidence of fluid collection or hematoma in the superficial soft tissues. CT/CT kidney stone [id number] IMPRESSION: 1. No evidence of acute abnormality in the abdomen or pelvis within limitations of a noncontrast exam. 2. Punctate nonobstructive renal stones measuring up to 2 mm on the left.
[2024-02-18 16:08] LABS: Alanine Aminotransferase 14 U/L (0-33); Alkaline Phosphatase 85 U/L (35-105); Aspartate Amino Transferase 15 U/L (0-32); Blood Urea Nitrogen 12 mg/dL (6-20); Calcium 9.9 mg/dL (8.5-10.5); Carbon Dioxide 24 mmol/L (22-29); Chloride 105 mmol/L (98-107); Creatinine Clr Calc Pharmacy 103.0844; Globulin 3.5 g/dL (1.3-4.6); Glomerular Filtration Rate 88.6 mL/min (90-130); Glucose 88 mg/dL (65-115); Lipase 45 U/L (13-60); Osmolality Calculated 293 mOsm/kg (285-295); Sodium 142 mmol/L (136-145); Total Bilirubin 1.1 mg/dL (0.15-1.2); Total Protein 8.5 g/dL (6.6-8.7)
[2024-02-18] MEDS: morphine 4 mg/mL SDV 1 mL IVP (16:10)
--- NOTE | 2024-02-18 16:10 | W.ED.ABDPA2 ---
Documented by User: Marek Portillo DO 02/28/24 06:56 HPI - Abdominal Pain General: Chief Complaint: Abdominal Pain Stated Complaint: abd pain Time Seen by Provider: 02/18/24 15:33 Source: patient Mode of arrival: ambulatory History of Present Illness: 48-year-old female presents emergency room with complaint of abdominal pain. She has pain in the left upper quadrant that started yesterday. She has not had any fever sweats or chills she denies any dysuria urgency or frequency. No vomiting or diarrhea she did not notice anything that seems to exacerbate or relieve her symptoms. She has had renal stones in the past. No chest discomfort or shortness of breath MD elicited complaint: abdominal pain Pertinent past history: kidney stones Onset (ago): hour(s) Pain Consistency: constant Location: LUQ Quality: sharp Exacerbating factors: nothing Relieving factors: nothing Associated Symptoms: Denies anorexia, belching, bloating, change in bowel habits, change in stool character, chills, coffee ground emesis, constipation, GI cramping, diarrhea, dyspepsia, dysuria, excessive flatus, fever(s), heartburn, hematochezia, hematuria, hematemesis, fecal incontinence, loose stools, melena, nausea, poor appetite, syncope and vomiting Review of Systems Const: Denies: fever(s) or chills Card: Denies: syncope Resp: Denies: dyspnea GI: Denies: nausea, vomiting, hematemesis, coffee ground emesis, heartburn, diarrhea, constipation, bloating, GI cramping, belching, excessive flatus, fecal incontinence, change in bowel habits, change in stool character, hematochezia or melena : Denies: dysuria or hematuria Musc: Denies: neck pain or back pain Skin/Breast: Denies: rash PFSH ED PFSH: Medical History Thyroid disease Breast mass in female Surgical History H/O neck surgery H/O: hysterectomy Family History Other Cancer Diabetes Hyperlipidemia Hypertension Denies family history of CAD (coronary artery disease) Clotting disorder Dementia Psychiatric illness Chronic kidney disease (CKD) Suicide Anesthesia complication Bleeding disorder Family history of premature coronary artery disease Lung disease Stroke Social History Smoking and tobacco/nicotine status: current every day tobacco/nicotine user cigarettes Packs smoked per day: 1 Years cigarettes smoked: 35 Second hand smoke exposure: No Alcohol intake: never Substance/Drug Use: former Household members: none Physical Exam Const: COMMON NORMALS: no acute distress GENERAL APPEARANCE: cooperative and comfortable ORIENTATION/CONSCIOUSNESS: Yes awake, Yes oriented to person, Yes oriented to place and Yes oriented to time HENMT: COMMON NORMALS: normocephalic, atraumatic and hearing grossly normal bilaterally HEAD & SCALP: normocephalic and atraumatic Resp: COMMON NORMALS: normal respiratory effort, No retractions, No use of accessory muscles and clear to auscultation bilaterally AUSCULTATION: clear to auscultation bilaterally Cardio: COMMON NORMALS: regular rate, regular rhythm and No murmurs present (Cardio) RATE: regular rate RHYTHM: regular rhythm GI: COMMON NORMALS: Soft to palpation and No hepatosplenomegaly present AUSCULTATION: Yes normoactive bowel sounds PALPATION: Yes Soft to palpation, No Tenderness to palpation present (GI), No Guarding due to palpation present (GI) and Yes No hepatosplenomegaly present Extremity: COMMON NORMALS: normal to inspection, capillary refill normal, no clubbing, cyanosis or edema, no calf tenderness and no pedal edema Neuro: SENSORIUM/ORIENTATION: Yes oriented to person, Yes oriented to place and Yes oriented to time Skin: COMMON NORMALS: no rashes or lesions noted GENERAL SKIN EXAM: no rashes or lesions noted Course Vital Signs: Vital signs: Vital Signs Temperature 98.2 F 02/18/24 15:29 Pulse Rate 66 02/18/24 19:27 Respiratory Rate 16 02/18/24 19:27 Blood Pressure 145/110 02/18/24 19:27 Pulse Oximetry 97 02/18/24 19:02 Oxygen Delivery Me thod Room Air 02/18/24 17:12 MDM - Abdominal Pain Medical Decision Making CT pending. Urine results pending CBC and CMP unremarkable. Care signed out to Dr. Blakely at change of shift. See final notes for diagnosis and disposition. I have discussed the patient's case with the off going physician <Dr. Portillo > and I have assumed care of the patient. We have discussed the current lab/radiographic results that have been resulted and the pending tests. Lab Data 02/18/24 15:35 02/18/24 15:35 Labs/Radiology: Radiology Impressions Abdomen/Pelvis CT 02/18/24 16:05 IMPRESSION: 1. No evidence of acute abnormality in the abdomen or pelvis within limitations of a noncontrast exam. 2. Punctate nonobstructive renal stones measuring up to 2 mm on the left. Laboratory Results WBC 10.56 10^3/uL (3.29-11.43) 02/18/24 15:35 RBC 5.85 10^6/uL (3.85-5.65) H 02/18/24 15:35 Hgb 17.60 g/dL (11.27-16.99) H 02/18/24 15:35 Hct 52.4 % (36-47) H 02/18/24 15:35 MCV 89.6 fl (85-98) 02/18/24 15:35 MCH 30.1 pg (27-33) 02/18/24 15:35 MCHC 33.6 g/dL (30-55) 02/18/24 15:35 RDW 13.4 % (12.1-15.1) 02/18/24 15:35 Plt Count 273 10^3/cmm (157-399) 02/18/24 15:35 MPV 11.5 fL (7.4-10.4) H 02/18/24 15:35 Neut % (Auto) 62.0 % 02/18/24 15:35 Lymph % (Auto) 22.5 % 02/18/24 15:35 [place] % (Auto) 10.4 % 02/18/24 15:35 Eos % (Auto) 4.0 % 02/18/24 15:35 Baso % (Auto) 0.7 % 02/18/24 15:35 Neut # (Auto) 6.55 10^3/uL (1.8-7.7) 02/18/24 15:35 Lymph # (Auto) 2.4 10^3/uL (0.8-4.8) 02/18/24 15:35 [place] # (Auto) 1.1 10^3/uL (0.2-0.9) H 02/18/24 15:35 Eos # (Auto) 0.4 10^3/uL (0.0-0.8) 02/18/24 15:35 Baso # (Auto) 0.1 10^3/uL (0.0-0.1) 02/18/24 15:35 Nucleated RBC % (auto) 0 % 02/18/24 15:35 Nucleated RBCs # 0.0 /100WBC 02/18/24 15:35 Sodium 142 mmol/L (136-145) 02/18/24 15:35 Potassium 4.0 mmol/L (3.5-5.1) 02/18/24 15:35 Chloride 105 mmol/L (98-107) 02/18/24 15:35 Carbon Dioxide 24 mmol/L (22-29) 02/18/24 15:35 Anion Gap 17.0 (5-19) 02/18/24 15:35 BUN 12 mg/dL (6-20) 02/18/24 15:35 Creatinine 0.7 mg/dL (0.5-0.9) 02/18/24 15:35 GFR Calculation 88.6 mL/min (90-130) L 02/18/24 15:35 Glucose 88 mg/dL (65-115) 02/18/24 15:35 Calculated Osmolality 293 mOsm/kg (285-295) 02/18/24 15:35 Calcium 9.9 mg/dL (8.5-10.5) 02/18/24 15:35 Total Bilirubin 1.1 mg/dL (0.15-1.2) 02/18/24 15:35 AST 15 U/L (0-32) 02/18/24 15:35 ALT 14 U/L (0-33) 02/18/24 15:35 Alkaline Phosphatase 85 U/L (35-105) 02/18/24 15:35 Total Protein 8.5 g/dL (6.6-8.7) 02/18/24 15:35 Albumin 5.0 g/dL (3.5-5.2) 02/18/24 15:35 Globulin 3.5 g/dL (1.3-4.6) 02/18/24 15:35 Lipase 45 U/L (13-60) 02/18/24 15:35 Urine Color Yellow (Yellow) 02/18/24 17:54 Urine Appearance Clear (CLEAR) 02/18/24 17:54 Urine pH 5 (5-7) 02/18/24 17:54 Ur Specific [place] 1.015 (1.005-1.030) 02/18/24 17:54 Urine Protein Neg (Negative) 02/18/24 17:54 Urine Glucose (UA) Norm (Normal) 02/18/24 17:54 Urine Ketones Negative (Negative) 02/18/24 17:54 Urine Blood Neg (Negative) 02/18/24 17:54 Urine Nitrate Negative (Negative) 02/18/24 17:54 Urine Bilirubin Neg (Negative) 02/18/24 17:54 Urine Urobilinogen Norm mg/dL (Negative) 02/18/24 17:54 Ur Leukocyte Esterase Negative (Negative) 02/18/24 17:54 Discharge Plan Discharge Patient Disposition: Home Clinical Impression: Renal colic on left side, Calculus of left kidney Condition: Stable Prescriptions: New Flomax 0.4 mg capsule 0.4 mg PO DAILY Qty: 30 0RF naproxen 500 mg tablet 500 mg PO Q12H PRN (Reason: pain) Qty: 20 0RF No Action silver sulfadiazine [Silvadene] 1 % cream 1 applic topical BID Qty: 50 0RF Rx Instructions: apply a 1.5 mm thickness irbesartan-hydrochlorothiazide 150-12.5 mg tablet 1 tab PO DAILY albuterol sulfate [Ventolin HFA] 90 mcg/actuation HFA aerosol inhaler 2 puff inhalation QID PRN (Reason: shortness of breath or wheezing) Qty: 18 2RF Discharge Orders: Discharge ED (Routine); Ordered 02/18/24 Ordered By: Casimiro Blakely Referrals: Trevor Dean MD [Primary Care Provider] - Discharge Diet: Usual diet Discharge Activity: Resume usual activity Patient Instructions: Abdominal Pain (ED), Opioid Safety, Pain Management Activity Restrictions/Additional Instructions: Activity Restrictions/Additional Instructions: Thank you for choosing [facility] for your healthcare needs today. Please realize that you were seen in the Emergency Department and that we are providing you with an emergency medical screening exam and this may not be a complete and all inclusive of all the testing and or medical work-up that you may need to determine your ailment or severity of your illness. It is very important that you follow-up as instructed with your Primary care provider or Specialist for additional evaluation and to discuss your medical treatment plan. Call to make a Follow-up appointment: [facility] [address] [place] [address] Coding Level of Care Code ED Explosive Operator Fuse for Chg Fwd Documented by User: Casimiro Blakely MD 02/18/24 18:54 HPI - Abdominal Pain General: Chief Complaint: Abdominal Pain Stated Complaint: abd pain Time Seen by Provider: 02/18/24 15:33 PFSH ED PFSH: Medical History Thyroid disease Breast mass in female Surgical History H/O neck surgery H/O: hysterectomy Family History Other Cancer Diabetes Hyperlipidemia Hypertension Denies family history of CAD (coronary artery disease) Clotting disorder Dementia Psychiatric illness Chronic kidney disease (CKD) Suicide Anesthesia complication Bleeding disorder Family history of premature coronary artery disease Lung disease Stroke Social History Smoking and tobacco/nicotine status: current every day tobacco/nicotine user cigarettes Packs smoked per day: 1 Years cigarettes smoked: 35 Second hand smoke exposure: No Alcohol intake: never Substance/Drug Use: former Household members: none Course Reevaluation(s): Reevaluation #1: Patient states that her left flank pain is starting to return she states she does have a history of kidney stones I did discuss the CT scan findings of a 2 mm punctate renal calculi to the left. I have provided her Toradol IV as well as IV fluid bolus. I will discharge the patient with recommended [facility] as she is previously established with them for treatment of previous kidney stones. I will provide the patient a written prescription for Flomax and Zofran and naproxen. Time: 18:48 Vital Signs: Vital signs: Vital Signs Temperature 98.2 F 02/18/24 15:29 Pulse Rate 66 02/18/24 19:27 Respiratory Rate 16 02/18/24 19:27 Blood Pressure 145/110 02/18/24 19:27 Pulse Oximetry 97 02/18/24 19:02 Oxygen Delivery Me thod Room Air 02/18/24 17:12 MDM - Abdominal Pain Medical Decision Making I have discussed the patient's case with the off going physician <Dr. Portillo > and I have assumed care of the patient. We have discussed the current lab/radiographic results that have been resulted and the pending tests. Medical Records I reviewed the patient's medical records. Lab Data I reviewed the patient's lab results. 02/18/24 15:35 02/18/24 15:35 Labs/Radiology: Radiology Impressions Abdomen/Pelvis CT 02/18/24 16:05 IMPRESSION: 1. No evidence of acute abnormality in the abdomen or pelvis within limitations of a noncontrast exam. 2. Punctate nonobstructive renal stones measuring up to 2 mm on the left. Laboratory Results WBC 10.56 10^3/uL (3.29-11.43) 02/18/24 15:35 RBC 5.85 10^6/uL (3.85-5.65) H 02/18/24 15:35 Hgb 17.60 g/dL (11.27-16.99) H 02/18/24 15:35 Hct 52.4 % (36-47) H 02/18/24 15:35 MCV 89.6 fl (85-98) 02/18/24 15:35 MCH 30.1 pg (27-33) 02/18/24 15:35 MCHC 33.6 g/dL (30-55) 02/18/24 15:35 RDW 13.4 % (12.1-15.1) 02/18/24 15:35 Plt Count 273 10^3/cmm (157-399) 02/18/24 15:35 MPV 11.5 fL (7.4-10.4) H 02/18/24 15:35 Neut % (Auto) 62.0 % 02/18/24 15:35 Lymph % (Auto) 22.5 % 02/18/24 15:35 Deuel % (Auto) 10.4 % 02/18/24 15:35 Eos % (Auto) 4.0 % 02/18/24 15:35 Baso % (Auto) 0.7 % 02/18/24 15:35 Neut # (Auto) 6.55 10^3/uL (1.8-7.7) 02/18/24 15:35 Lymph # (Auto) 2.4 10^3/uL (0.8-4.8) 02/18/24 15:35 [place]uel # (Auto) 1.1 10^3/uL (0.2-0.9) H 02/18/24 15:35 Eos # (Auto) 0.4 10^3/uL (0.0-0.8) 02/18/24 15:35 Baso # (Auto) 0.1 10^3/uL (0.0-0.1) 02/18/24 15:35 Nucleated RBC % (auto) 0 % 02/18/24 15:35 Nucleated RBCs # 0.0 /100WBC 02/18/24 15:35 Sodium 142 mmol/L (136-145) 02/18/24 15:35 Potassium 4.0 mmol/L (3.5-5.1) 02/18/24 15:35 Chloride 105 mmol/L (98-107) 02/18/24 15:35 Carbon Dioxide 24 mmol/L (22-29) 02/18/24 15:35 Anion Gap 17.0 (5-19) 02/18/24 15:35 BUN 12 mg/dL (6-20) 02/18/24 15:35 Creatinine 0.7 mg/dL (0.5-0.9) 02/18/24 15:35 GFR Calculation 88.6 mL/min (90-130) L 02/18/24 15:35 Glucose 88 mg/dL (65-115) 02/18/24 15:35 Calculated Osmolality 293 mOsm/kg (285-295) 02/18/24 15:35 Calcium 9.9 mg/dL (8.5-10.5) 02/18/24 15:35 Total Bilirubin 1.1 mg/dL (0.15-1.2) 02/18/24 15:35 AST 15 U/L (0-32) 02/18/24 15:35 ALT 14 U/L (0-33) 02/18/24 15:35 Alkaline Phosphatase 85 U/L (35-105) 02/18/24 15:35 Total Protein 8.5 g/dL (6.6-8.7) 02/18/24 15:35 Albumin 5.0 g/dL (3.5-5.2) 02/18/24 15:35 Globulin 3.5 g/dL (1.3-4.6) 02/18/24 15:35 Lipase 45 U/L (13-60) 02/18/24 15:35 Urine Color Yellow (Yellow) 02/18/24 17:54 Urine Appearance Clear (CLEAR) 02/18/24 17:54 Urine pH 5 (5-7) 02/18/24 17:54 Ur Specific [place] 1.015 (1.005-1.030) 02/18/24 17:54 Urine Protein Neg (Negative) 02/18/24 17:54 Urine Glucose (UA) Norm (Normal) 02/18/24 17:54 Urine Ketones Negative (Negative) 02/18/24 17:54 Urine Blood Neg (Negative) 02/18/24 17:54 Urine Nitrate Negative (Negative) 02/18/24 17:54 Urine Bilirubin Neg (Negative) 02/18/24 17:54 Urine Urobilinogen Norm mg/dL (Negative) 02/18/24 17:54 Ur Leukocyte Esterase Negative (Negative) 02/18/24 17:54 All radiology interpretation(s) finalized by discharge Discharge Plan Discharge Patient Disposition: Home Clinical Impression: Renal colic on left side, Calculus of left kidney Condition: Stable Prescriptions: New Flomax 0.4 mg capsule 0.4 mg PO DAILY Qty: 30 0RF naproxen 500 mg tablet 500 mg PO Q12H PRN (Reason: pain) Qty: 20 0RF No Action silver sulfadiazine [Silvadene] 1 % cream 1 applic topical BID Qty: 50 0RF Rx Instructions: apply a 1.5 mm thickness irbesartan-hydrochlorothiazide 150-12.5 mg tablet 1 tab PO DAILY albuterol sulfate [Ventolin HFA] 90 mcg/actuation HFA aerosol inhaler 2 puff inhalation QID PRN (Reason: shortness of breath or wheezing) Qty: 18 2RF Discharge Orders: Discharge ED (Routine); Ordered 02/18/24 Ordered By: Casimiro Blakely Referrals: Trevor Dean MD [Primary Care Provider] - Discharge Diet: Usual diet Discharge Activity: Resume usual activity Patient Instructions: Abdominal Pain (ED), Opioid Safety, Pain Management Activity Restrictions/Additional Instructions: Activity Restrictions/Additional Instructions: Thank you for choosing [facility] for your healthcare needs today. Please realize that you were seen in the Emergency Department and that we are providing you with an emergency medical screening exam and this may not be a complete and all inclusive of all the testing and or medical work-up that you may need to determine your ailment or severity of your illness. It is very important that you follow-up as instructed with your Primary care provider or Specialist for additional evaluation and to discuss your medical treatment plan. Call to make a Follow-up appointment: [facility] [address] [place] [address] Coding Level of Care Code ED Explosive Operator Fuse for Sachin Lozada
--- NOTE | 2024-02-18 16:32 | ECG_ITS ---
[facility] Test Date: 2024-02-18 Pat Name: Margarita Guadarrama Department: Room: Gender: Female Machine Records Units Supervisor: : 1975 Requested By: Marek Edmondson Order Number: [id number] Aaron MD: Jenifer Quintanilla M.D. Measurements Intervals [place] Rate: 72 P: 65 RI: 163 QRS: 49 QRSD: 88 T: 68 QT: 390 QTc: 429 Interpretive Statements SINUS RHYTHM Compared to ECG 07/18/2021 12:49:20 No significant changes Electronically Signed On 02-19-2024 23:46:22 CDT by Jenifer Quintanilla M.D. [email or web address] general [email or web address]/store/[id number]
[2024-02-18 18:42] LABS: Add Urine Microscopic? NO; Charge for UA Resulting for Rev
[2024-02-18 18:46] LABS: Bilirubin Urine Neg (Negative); Blood Urine Neg (Negative); Glucose Urine UA Norm (Normal); Ketones Urine Negative (Negative); Leukocyte Esterase Urine Negative (Negative); Nitrate Urine Negative (Negative); Protein Urine Neg (Negative); Specific Gravity, Urine 1.015 (1.005-1.030); Urine Appearance Clear (CLEAR); Urine Color Yellow (Yellow); Urobilinogen Urine Norm (Negative); pH Urine 5 (5-7)
[2024-02-18] MEDS: sodium chloride 0.9% 1,000 ML 999 ML IV (18:54)
[2024-02-18] MEDS: ketorolac 30 mg/mL INJ IVP (18:54)
== END 2024-02-18 19:29 | disposition home or self-care (01) ==
PROVIDERS: Family Medicine; Emergency Provider Internal Medicine; PCP Family Medicine
DX: N20.0 Calculus of kidney (principal); F17.210 Nicotine dependence, cigarettes, uncomplicated
CPT/HCPCS: 74176; 80053; 81003; 83690; 85025; 93005; 96361; 96374; 96375; 99285; J1885; J2270; J7030

== ENCOUNTER → 2024-02-27 06:51 | Outpatient (BNVA) | payer MEDICARE, MEDICAID, SELFPAY | PROVIDERS: PCP Family Medicine; Visit Provider Podiatrist Foot & Ankle Surgery | DX: L60.0 Ingrowing nail (principal) | CPT/HCPCS: 99213 ==

== ENCOUNTER 2024-04-07 15:50 | Outpatient (CLI) | payer MEDICARE, MEDICAID, SELFPAY ==
--- NOTE | 2024-04-07 15:53 | CT_ITS ---
WS: [id number] CT NECK TECHNIQUE: Contrast-enhanced CT of the neck with coronal and sagittal reformatted images. CLINICAL INFORMATION: Otalgia of left ear COMPARISON: None. DLP: 174.[address] scans at [facility] use at least one of these dose optimization techniques: automated e xposure control; mA and/or kV adjustment per patient size (includes targeted exams where dose is matc hed to clinical indication); or iterative reconstruction. FINDINGS: RIGHT thyroid nodule measuring 1.3 x 1.2 cm.. Normal submandibular glands. Normal parotid glands. Par anasal sinuses are well aerated. Partial opacification mastoid tips bilaterally. Mucosal thickening w ith partial opacification RIGHT middle ear. This is partially included on this examination. Normal po sterior nasopharynx. Normal parapharyngeal fat. Accessory LEFT submandibular tissue anteriorly. Sligh t ballooning of the RIGHT laryngeal ventricle. Recommend correlation for vocal cord paralysis. Prior postoperative changes cervical spine. No evidence of supraglottic or glottic mass. Normal [place] tonsils. Normal epiglottis. Normal piriform sinuses. Normal glottis. Normal subglottic airway. Calcified nodule RIGHT upper lobe medially measuring 1.[address]/CT neck w con* [id number] IMPRESSION: 1. Partial opacification of the mastoid mastoid air cells bilaterally extendin g to the mastoid tips. Partial opacification of the RIGHT middle ear. LEFT midd le ear appears better aerated although incompletely included on this study 2. Paranasal sinuses are well aerated where visualized. 3. Normal salivary glands. Accessory LEFT submandibular tissue. 4. No evidence of supraglottic or glottic mass. 5. RIGHT thyroid nodule measures 1.2 x 1.3 cm. 6. Prior postoperative changes cervical spine. 7. Slight ballooning of the RIGHT anterior laryngeal ventricle. Recommend valentin elation for vocal cord paralysis.
[2024-04-07] MEDS: iohexol 300 mg/mL 100 mL Btl IV (16:44)
== END 2024-04-07 15:51 | disposition home or self-care (01) ==
LOC: RAD 15:51
PROVIDERS: PCP Family Medicine; Visit Provider Specialist
DX: H92.02 Otalgia, left ear (principal); E04.1 Nontoxic single thyroid nodule
CPT/HCPCS: 70491; Q9967

== ENCOUNTER 2024-04-23 07:43 | Outpatient (CLI) | payer MEDICARE, MEDICAID, SELFPAY ==
--- NOTE | 2024-04-23 07:48 | MR_ITS ---
WS: [id number] MRI BRAIN WITH HIGH-RESOLUTION IMAGING THROUGH THE INTERNAL AUDITORY CANALS WITHOUT AND WITH CONTRAST HISTORY: MIXED CONDUCTIVE SENSORINEURAL HEARING LOSS,BILATERAL COMPARISON: Neck CT 04/07/2024 TECHNIQUE: Multiplanar, multisequence imaging is performed through the brain. Additional 3 mm imaging performed in multiple planes through the internal auditory canal. Postcontrast imaging with 15 ml's of MultiHance. No acute intracranial hemorrhage, midline shift, edema or mass effect. Very mild bilateral frontal lobe atrophy. No infarcts. Very minimal small vessel disease. No hemorrha ge. Ventricles and extra-axial spaces are normal. No inferior displacement of cerebellar tonsils. Clivus and pituitary gland are normal. No mass at the cerebellopontine angle. Internal and external auditory canals: Unremarkable. Normal internal and external auditory canals. No enhancement. No displacement of the nerve roots. Cranial nerves VII and VIII complexes: Unremarkable. No enhancement or mass. Cerebellopontine angles: Normal. Paranasal sinuses: Mild mucoperiosteal thickening in the frontal sinuses. No air-fluid levels. Mastoid air cells: Extensive bilateral mastoid air cell effusions as described on a recent CT. Calvar ium and scalp: Normal. Visualized [place] of [place] and dural venous sinuses demonstrate no abnormality. MR/MR iac's wo/w con* [id number] IMPRESSION: 1. Extensive bilateral mastoid air cell effusions. 2. No mass or abnormal enhancement at the cerebellopontine angles or involving the 7th and 8th cranial nerves. 3. No prior hemorrhage or infarct.
[2024-04-23] MEDS: gadobenate dimeglumine 20 mL vial IV (09:09)
== END 2024-04-23 07:44 | disposition home or self-care (01) ==
LOC: RAD 07:43
PROVIDERS: PCP Family Medicine; Visit Provider Specialist
DX: H92.02 Otalgia, left ear (principal); H74.8X3 Other specified disorders of middle ear and mastoid, bilateral
CPT/HCPCS: 70553; A9577

== ENCOUNTER 2024-07-21 07:45 | Emergency (ER) | payer MEDICARE, MEDICAID, SELFPAY ==
[2024-07-21 07:49] VITALS: BP 155/87; PULSE 99; RESP 16; TEMP 36.4; O2SAT 96; BMI 24.3
[2024-07-21 07:56] VITALS: BP 155/87; PULSE 99; RESP 16; TEMP 36.4; O2SAT 96
--- NOTE | 2024-07-21 07:59 | CT_ITS ---
WS: [id number] CT ABDOMEN PELVIS TECHNIQUE: Noncontrast CT of the abdomen and pelvis with coronal and sagittal reformatted images. CLINICAL INFORMATION: flank pain COMPARISON: CT 02/18/2024 DLP: 550.[address] scans at [facility] use at least one of these dose optimization techniques: automated e xposure control; mA and/or kV adjustment per patient size (includes targeted exams where dose is matc hed to clinical indication); or iterative reconstruction. FINDINGS: Prior cholecystectomy and hysterectomy. Adrenal glands are normal. No hydronephrosis in either kidney . Pelvic phleboliths. No obstructing LEFT renal or ureteral calculi. Tiny nonobstructing LEFT calycea l calculus unchanged from previous. No obstructing right-sided calculi. 1 or 2 tiny RIGHT calyceal ti p nonobstructing calculi. Normal noncontrast liver. Small esophageal canal hernia. Normal noncontrast pancreas. Normal noncontr ast spleen. Normal caliber abdominal aorta. Tiny fat-containing umbilical hernia. Normal sigmoid colo n. Mild disc bulge L4-L5 and L5-S1. Noncalcified nodule RIGHT middle lobe measuring [address]/CT kidney stone [id number] IMPRESSION: 1. No obstructing renal or ureteral calculi. 2. Prior cholecystectomy. 3. Prior hysterectomy. 4. Small esophageal hiatal hernia. 5. Noncalcified nodule RIGHT middle lobe measuring 3 mm unchanged compared to previous.
--- NOTE | 2024-07-21 08:04 | ED_ITS ---
HPI - Abdominal Pain 2 General: Chief Complaint: Abdominal Pain Stated Complaint: right side pain Time Seen by Provider: 07/21/24 07:55 Source: patient Mode of arrival: ambulatory Limitations: no limitations History of Present Illness: 49-year-old female states that she had r ight-sided flank pain started swelling. States the pain radiates from groin she had nausea with that states pain is a 9 out of 10 she had a history of kidney stones states this feels the same she denies any worsening improving factors. Associated Symptoms: Denies chills, diarrhea, dysuria, fever(s), nausea and vomiting Related Data Home Medications Medication Instructions Recorded Confirmed irbesartan 150 1 tab PO DAILY 02/27/24 06/04/24 mg-hydrochlorothiazide 12.5 mg tablet Previous Rx's Medication Instructions Recorded albuterol sulfate 90 mcg/actuation 2 puff inhalation QID PRN 08/09/23 aerosol inhaler (Ventolin HFA) shortness of breath or wheezing #18 grams silver sulfadiazine 1 % topical 1 applic topical BID #50 grams 02/13/24 cream (Silvadene) naproxen 500 mg tablet 500 mg PO Q12H PRN pain #20 tabs 02/18/24 tamsulosin 0.4 mg capsule (Flomax) 0.4 mg PO DAILY #30 caps 02/18/24 sulfamethoxazole 800 1 tab PO BID 5 days #10 tabs 06/04/24 mg-trimethoprim 160 mg tablet (Bactrim DS) hydrocodone 5 mg-acetaminophen 325 1 tab PO Q6H PRN pain #14 tabs 07/21/24 mg tablet promethazine 25 mg tablet 25 mg PO TID PRN nausea and 07/21/24 vomiting #14 tabs Allergies Allergy/AdvReac Type Severity Reaction Status Date / Time ondansetron Allergy ADR-Nausea Verified 02/26/24 15:11 Penicillins AdvReac Intermediate Hives Verified 02/26/24 15:11 Review of Systems 2 Const: Denies: fever(s), chills, body aches or change in appetite ENMT: Denies: throat pain or dental pain Card: Denies: chest pain Resp: Denies: dyspnea GI: Reports: abdominal pain; Denies: nausea, vomiting or diarrhea : Reports: flank pain; Denies: dysuria Musc: Denies: neck pain or back pain Skin/Breast: Denies: rash Neuro: Denies: headache(s) PFSH ED 2 PFSH: Medical History Thyroid disease Breast mass in female Surgical History H/O neck surgery H/O: hysterectomy Family History Other Cancer Diabetes Hyperlipidemia Hypertension Denies family history of CAD (coronary artery disease) Clotting disorder Dementia Psychiatric illness Chronic kidney disease (CKD) Suicide Anesthesia complication Bleeding disorder Family history of premature coronary artery disease Lung disease Stroke Social History Smoking and tobacco/nicotine status: unknown if used tobacco/nicotine Second hand smoke exposure: No Alcohol intake: never Substance/Drug Use: former Household members: none Physical Exam 2 Const: COMMON NORMALS: no acute distress, patient oriented x3 and healthy appearing HENMT: COMMON NORMALS: normocephalic and atraumatic HEAD & SCALP: n ormocephalic and atraumatic Neck/C-Spine: COMMON NORMALS: full ROM and supple Chest: COMMONS NORMALS: normal inspection of the chest Resp: COMMON NORMALS: normal respiratory effort Cardio: COMMON NORMALS: regular rate, regular rhythm and No murmurs present (Cardio) RATE: regular rate RHYTHM: regular rhythm GI: COMMON NORMALS: Normal to inspection, nondistended, normoactive bowel sounds present, Soft to palpation, non-tender and no masses PALPATION: Yes Soft to palpation Extremity: COMMON NORMALS: normal to inspection and full ROM Neuro: COMMON NORMALS: patient oriented x3, moves all extremities and no focal motor deficits Psych: COMMON NORMALS: mental status grossly normal, Normal thought process present and cooperative THOUGHT PROCESS: Normal thought process present Skin: COMMON NORMALS: no rashes or lesions noted and no wounds GENERAL SKIN EXAM: no rashes or lesions noted Course 2 Vital Signs: Vital signs: Vital Signs Temperature 97.5 F L 07/21/24 07:56 Pulse Rate 91 07/21/24 08:24 Respiratory Rate 18 07/21/24 08:24 Blood Pressure 141/97 07/21/24 09:01 Pulse Oximetry 95 07/21/24 09:01 Oxygen Delivery Me thod Room Air 07/21/24 09:01 MDM - Abdominal Pain Medical Decision Making Patient presents here with flank pain, abdominal pain is resolved. Exam is benign no tenderness on exam blood work urinalysis CT is all normal she is stable for discharge she is currently pain-free she is follow-up with PCP return if worsening she understands agrees to plan Medical Records I reviewed the patient's medical records. Lab Data I reviewed the patient's lab results. 07/21/24 07:56 07/21/24 07:56 Labs/Radiology: Radiology Impressions Abdomen/Pelvis CT 07/21/24 07:59 IMPRESSION: 1. No obstructing renal or ureteral calculi. 2. Prior cholecystectomy. 3. Prior hysterectomy. 4. Small esophageal hiatal hernia. 5. Noncalcified nodule RIGHT middle lobe measuring 3 mm unchanged compared to previous. Laboratory Results WBC 9.26 10^3/uL (3.29-11.43) 07/21/24 07:56 RBC 4.88 10^6/uL (3.85-5.65) 07/21/24 07:56 Hgb 14.70 g/dL (11.27-16.99) 07/21/24 07:56 Hct 43.6 % (36-47) 07/21/24 07:56 MCV 89.3 fl (85-98) 07/21/24 07:56 MCH 30.1 pg (27-33) 07/21/24 07:56 MCHC 33.7 g/dL (30-55) 07/21/24 07:56 RDW 13.2 % (12.1-15.1) 07/21/24 07:56 Plt Count 242 10^3/cmm (157-399) 07/21/24 07:56 MPV 11.3 fL (7.4-10.4) H 07/21/24 07:56 Neut % (Auto) 55.9 % 07/21/24 07:56 Lymph % (Auto) 27.6 % 07/21/24 07:56 [place] % (Auto) 9.9 % 07/21/24 07:56 Eos % (Auto) 5.3 % 07/21/24 07:56 Baso % (Auto) 1.0 % 07/21/24 07:56 Neut # (Auto) 5.17 10^3/uL (1.8-7.7) 07/21/24 07:56 Lymph # (Auto) 2.6 10^3/uL (0.8-4.8) 07/21/24 07:56 [place] # (Auto) 0.9 10^3/uL (0.2-0.9) 07/21/24 07:56 Eos # (Auto) 0.5 10^3/uL (0.0-0.8) 07/21/24 07:56 Baso # (Auto) 0.1 10^3/uL (0.0-0.1) 07/21/24 07:56 Nucleated RBC % (auto) 0 % 07/21/24 07:56 Nucleated RBCs # 0.0 /100WBC 07/21/24 07:56 Sodium 141 mmol/L (136-145) 07/21/24 07:56 Potassium 3.8 mmol/L (3.5-5.1) 07/21/24 07:56 Chloride 108 mmol/L (98-107) H 07/21/24 07:56 Carbon Dioxide 22 mmol/L (22-29) 07/21/24 07:56 Anion Gap 14.8 (5-19) 07/21/24 07:56 BUN 12 mg/dL (6-20) 07/21/24 07:56 Creatinine 0.8 mg/dL (0.5-0.9) 07/21/24 07:56 GFR Calculation 75.6 mL/min (90-130) L 07/21/24 07:56 Glucose 94 mg/dL (65-115) 07/21/24 07:56 Calculated Osmolality 292 mOsm/kg (285-295) 07/21/24 07:56 Calcium 8.9 mg/dL (8.5-10.5) 07/21/24 07:56 Total Bilirubin 0.5 mg/dL (0.15-1.2) 07/21/24 07:56 AST 12 U/L (0-32) 07/21/24 07:56 ALT 11 U/L (0-33) 07/21/24 07:56 Alkaline Phosphatase 84 U/L (35-105) 07/21/24 07:56 Total Protein 7.0 g/dL (6.6-8.7) 07/21/24 07:56 Albumin 4.2 g/dL (3.5-5.2) 07/21/24 07:56 Globulin 2.8 g/dL (1.3-4.6) 07/21/24 07:56 Lipase 44 U/L (13-60) 07/21/24 07:56 Urine Color Yellow (Yellow) 07/21/24 08:40 Urine Appearance Clear (CLEAR) 07/21/24 08:40 Urine pH 5.5 (5-7) 07/21/24 08:40 Ur Specific [place] 1.019 (1.005-1.030) 07/21/24 08:40 Urine Protein Negative (Negative) 07/21/24 08:40 Urine Glucose (UA) Negative (Normal) 07/21/24 08:40 Urine Ketones Negative (Negative) 07/21/24 08:40 Urine Blood Negative (Negative) 07/21/24 08:40 Urine Nitrate Negative (Negative) 07/21/24 08:40 Urine Bilirubin Negative (Negative) 07/21/24 08:40 Urine Urobilinogen 1.0 mg/dL (Negative) 07/21/24 08:40 Ur Leukocyte Esterase Negative (Negative) 07/21/24 08:40 Urine RBC 0-2 /hpf (0-2) 07/21/24 08:40 Urine WBC 0-5 /hpf (0-5) 07/21/24 08:40 Ur Squamous Epith Cells 0-5 /hpf (0-5) 07/21/24 08:40 Amorphous Sediment Not Reportable 07/21/24 08:40 Urine Bacteria Trace /hpf (NONE) 07/21/24 08:40 Hyaline Casts 0.40 /lpf 07/21/24 08:40 All radiology interpretation(s) finalized by discharge Discharge Plan Discharge Patient Disposition: Home Clinical Impression: Abdominal pain Condition: Stable Prescriptions: New hydrocodone-acetaminophen 5-325 mg tablet 1 tab PO Q6H PRN (Reason: pain) Qty: 14 0RF promethazine 25 mg tablet 25 mg PO TID PRN (Reason: nausea and vomiting) Qty: 14 0RF No Action silver sulfadiazine [Silvadene] 1 % cream 1 applic topical BID Qty: 50 0RF Rx Instructions: apply a 1.5 mm thickness irbesartan-hydrochlorothiazide 150-12.5 mg tablet 1 tab PO DAILY sulfamethoxazole-trimethoprim [Bactrim DS] 800-160 mg tablet 1 tab PO BID 5 Days Qty: 10 0RF albuterol sulfate [Ventolin HFA] 90 mcg/actuation HFA aerosol inhaler 2 puff inhalation QID PRN (Reason: shortness of breath or wheezing) Qty: 18 2RF Flomax 0.4 mg capsule 0.4 mg PO DAILY Qty: 30 0RF naproxen 500 mg tablet 500 mg PO Q12H PRN (Reason: pain) Qty: 20 0RF Discharge Orders: Discharge ED (Routine); Ordered 07/21/24 Ordered By: Lilia Hernandez Referrals: Trevor Dean MD [Primary Care Provider] - 4-7 days Discharge Diet: Advance as tolerated Discharge Activity: Resume usual activity Patient Instructions: Abdominal Pain (ED), Opioid Safety Coding Level of Care Code ED Raw Sampler for Sachin Lozada
[2024-07-21 08:17] LABS: Basophils # 0.1 10^3/uL (0.0-0.1); Eosinophils # 0.5 10^3/uL (0.0-0.8); Eosinophils % 5.3 %; Hematocrit 43.6 % (36-47); Lymphocytes # 2.6 10^3/uL (0.8-4.8); Lymphocytes % 27.6 %; Mean Corpuscular HGB Conc 33.7 g/dL (30-55); Mean Corpuscular Hemoglobin 30.1 pg (27-33); Mean Corpuscular Volume 89.3 fl (85-98); Mean Platelet Volume 11.3 fL (7.4-10.4); Monocytes # 0.9 10^3/uL (0.2-0.9); Monocytes % 9.9 %; Neutrophils # 5.17 10^3/uL (1.8-7.7); Neutrophils % 55.9 %; Nucleated Red Blood Cells % 0 %; Platelet Count 242 10^3/cmm (157-399); Red Blood Count 4.88 10^6/uL (3.85-5.65); Red Cell Distribution Width 13.2 % (12.1-15.1); White Blood Count 9.26 10^3/uL (3.29-11.43)
[2024-07-21] MEDS: morphine 4 mg/mL SDV 1 mL IVP (08:21)
[2024-07-21] MEDS: ketorolac 30 mg/mL INJ IVP (08:21)
[2024-07-21] MEDS: promethazine 25 mg/mL SDV 1 mL IM (08:21)
[2024-07-21] MEDS: sodium chloride 0.9% 1,000 ML 999 ML IV (08:21)
[2024-07-21 08:24] VITALS: BP 156/96; PULSE 91; RESP 18; O2SAT 97
[2024-07-21 08:27] LABS: Alanine Aminotransferase 11 U/L (0-33); Albumin Level 4.2 g/dL (3.5-5.2); Alkaline Phosphatase 84 U/L (35-105); Anion Gap 14.8 (5-19); Aspartate Amino Transferase 12 U/L (0-32); Blood Urea Nitrogen 12 mg/dL (6-20); Calcium 8.9 mg/dL (8.5-10.5); Carbon Dioxide 22 mmol/L (22-29); Chloride 108 mmol/L (98-107); Creatinine Clr Calc Pharmacy 88.4816; Globulin 2.8 g/dL (1.3-4.6); Glomerular Filtration Rate 75.6 mL/min (90-130); Glucose 94 mg/dL (65-115); Lipase 44 U/L (13-60); Osmolality Calculated 292 mOsm/kg (285-295); Potassium 3.8 mmol/L (3.5-5.1); Sodium 141 mmol/L (136-145); Total Bilirubin 0.5 mg/dL (0.15-1.2)
[2024-07-21 08:51] LABS: Charge for UA Resulting for Rev
[2024-07-21 09:01] VITALS: BP 141/97; O2SAT 95
[2024-07-21 09:16] LABS: Bilirubin Urine Negative (Negative); Blood Urine Negative (Negative); Glucose Urine UA Negative (Normal); Ketones Urine Negative (Negative); Leukocyte Esterase Urine Negative (Negative); Nitrate Urine Negative (Negative); Protein Urine Negative (Negative); Specific Gravity, Urine 1.019 (1.005-1.030); Urine Appearance Clear (CLEAR); Urine Color Yellow (Yellow); pH Urine 5.5 (5-7)
[2024-07-21 09:24] LABS: Bacteria Urine Trace /hpf; RBC Urine 0-2 /hpf (0-2); Squamous Epithelial Cell Urine 0-5 /hpf (0-5); WBC Urine 0-5 /hpf (0-5)
[2024-07-21 09:33] VITALS: BP 142/95; PULSE 69; O2SAT 93
== END 2024-07-21 09:34 | disposition home or self-care (01) ==
PROVIDERS: Emergency Provider Emergency Medicine; PCP Family Medicine
DX: R10.9 Unspecified abdominal pain (principal); Z87.442 Personal history of urinary calculi
CPT/HCPCS: 74176; 80053; 81003; 81015; 83690; 85025; 96372; 96374; 96375; 99285; J1885; J2270; J2550; J7030

== ENCOUNTER → 2024-09-03 09:55 | Outpatient (BNVA) | payer MEDICARE, MEDICAID, SELFPAY | PROVIDERS: PCP Family Medicine; Visit Provider Surgery | DX: R22.2 Localized swelling, mass and lump, trunk (principal) | CPT/HCPCS: 99204 ==

== ENCOUNTER 2024-09-15 06:27 | Day surgery (SDC) | payer MEDICARE, MEDICAID, SELFPAY ==
[2024-09-15] VITALS (12 sets, daily range): BP systolic 107–160; BP diastolic 80–122; PULSE 71–102; RESP 14–18; TEMP 36.2–36.5; O2SAT 92–97
[2024-09-15] MEDS: sodium chloride 0.9% 1,000 ML 30 ML IV (06:56)
--- NOTE | 2024-09-15 06:56 | W.PM.OPSUD ---
Surgery/Procedure H&P Update DATE OF PROCEDURE: September 15, 2024 DATE H&P PERFORMED: 09/03/24 H&P UPDATE INFORMATION: I have reviewed H&P completed within last 30 days, I have examined patient prior to procedure and No changes to prior documentation PLANNED PROCEDURE: Operation Date: 09/15/24 08:15 Proposed Procedures p Excision of back mass 3.5 cm 63321, R22.2(Not Applicable) - Rambo García, DO
--- NOTE | 2024-09-15 07:45 | ANES.PREANE2 ---
Pre-Anesthetic Assessment Height/Weight: Height 1.73 m Weight 74.843 kg Temp Pulse Resp BP Pulse Ox O2 Del Method 97.2 F L 90 16 149/122 96 Room Air 09/15/24 06:40 09/15/24 06:40 09/15/24 06:40 09/15/24 06:40 09/15/24 06:40 09/15/24 06:40 Operation Date: 09/15/24 08:15 Proposed Procedures p Excision of back mass 3.5 cm 45478, R22.2(Not Applicable) - Rambo García DO Familial anesthetic complications: None Was Beta Marta taken within 24 hours: N/A Was Clonidine taken within 24 hours: N/A Last intake: Intake Last Liquid Date 09/14/24 Last Liquid Time 22:00 Last Solid Date 09/14/24 Last Solid Time 20:00 Social Tobacco and No alcohol Exam alert, oriented x 3, clear to auscultation bilaterally and regular rate & rhythm Airway Mallampati: Class I Dentition: full CV/HEM Hypertension Anesthetic Plan ASA status: 2 Anesthesia: General Risk of > 500 ml blood loss (7ml/kg in children): No Medications/Allergies Home Medications Medication Instructions Recorded Confirmed Last Taken Type irbesartan 150 1 tab PO DAILY 02/27/24 09/15/24 09/14/24 History mg-hydrochlorothiazide 12.5 mg tablet Allergies Allergy/AdvReac Type Severity Reaction Status Date / Time ondansetron Allergy ADR-Nausea Verified 09/03/24 10:04 Penicillins AdvReac Intermediate Hives Verified 09/03/24 10:04 Current Medications Generic Name Dose Route Start Last Admin Trade Name Julianq PRN Reason Stop Dose Admin Sodium Chloride 1,000 mls @ 30 mls/hr 09/15/24 06:30 09/15/24 06:56 Sodium Chloride 0.9% IV 09/16/24 06:29 30 mls/hr .Q24H SIMON Administration PFSH Anesthesia Medical History Thyroid disease Breast mass in female Surgical History H/O neck surgery H/O: hysterectomy Family History Other Cancer Diabetes Hyperlipidemia Hypertension Denies family history of CAD (coronary artery disease) Clotting disorder Dementia Psychiatric illness Chronic kidney disease (CKD) Suicide Anesthesia complication Bleeding disorder Family history of premature coronary artery disease Lung disease Stroke Social History Smoking and tobacco/nicotine status: never used tobacco/nicotine Second hand smoke exposure: No Alcohol intake: never Substance/Drug Use: former Household members: none Data Anesthesia Cardiac Studies: No Data to Display
[2024-09-15] MEDS: ceFAZolin 2,000 mg SDV 2000 MG IVP (08:17)
[2024-09-15] MEDS: lidocaine-epi 2% PF 1:200,000 20 mL SDV XX (08:38)
[2024-09-15] MEDS: neomycin-poly-bacitracin oint 28 gm 1 APPLIC TOPICAL (08:47)
--- NOTE | 2024-09-15 08:53 | PM.OP ---
Operative Report Date of procedure: September 15, 2024 Pre-op diagnosis: Subcutaneous back mass times 2 subcutaneous Post-op diagnosis: same Procedure done: Excision of subcutaneous back mass x 2 Specimens removed/disposition: Elliptical excision of inferior subcutaneous back mass Elliptical excision of superior back mass Surgeon: Rambo García DO Anesthesia: MAC and Local Estimated blood loss (mL): 5 Complications: None apparent Brief History: This a very pleasant 49-year-old female presented my office with 2 subcutaneous back masses very close to each other. Excision was indicated. The risks and benefits were explained and documented. Procedure: Patient was placed on the OR table in the right lateral decubitus position. Adequate sedation was achieved by the department anesthesia. The area was inspected prepped and draped in the usual sterile fashion. Timeout was performed. All present were in agreement. 2% lidocaine with epinephrine was used to anesthetize the area around the lesions. There was an inferior lesion that measured 1.1 cm in diameter and was flat but somewhat cratered, and another lesion just superior to this that measured 1 cm in diameter that was flat and skin colored. There was a small skin bridge in between them. I made the decision to excise them both separately in order to keep the overall size of the excision and length of the scar smaller. An elliptical excision measuring 3 cm x 1.5 cm was made over the inferior mass with a 15 blade scalpel. Dermis was transected with electrocautery. Subcutaneous tissue was transected with electrocautery. Specimen was passed off. An elliptical excision measuring 2.5 x 1.1 cm was made over the inferior lesion with a 15 blade scalpel. Electrocautery was used to dissect down through the dermis and subcutaneous tissue. Specimen was passed off. Hemostasis was achieved electrocautery. 3-0 Vicryl suture was then used to approximate the dermis in an interrupted fashion. Skin was then closed using 3-0 running nylon x 2. Triple antibiotic was applied. Sterile bandage was applied. Patient tolerated procedure well.
[2024-09-15] MEDS: labetalol 5 mg/mL SDV 20mL 10 MG IVP (09:43)
--- NOTE | 2024-09-15 10:20 | ANE.PACU2 ---
Inpatient post-anesthesia follow up: Airway intact: Yes Vital signs: Temperature 97.7 F Pulse Rate 71 Respiratory Rate 16 Blood Pressure 107/80 Pulse Oximetry 96 Oxygen Delivery Me thod Room Air Oxygen Flow Rate Fraction of Inspir ed Oxygen Hydration adequate: Yes Nausea and vomiting: No Pain level: 1 Mental status: Baseline
== END 2024-09-15 10:20 | disposition home or self-care (01) ==
PROVIDERS: PCP Family Medicine; Visit Provider Surgery
PROC: (CPT 11403; principal; 2024-09-15 08:15)
DX: L72.0 Epidermal cyst (principal); I10 Essential (primary) hypertension
CPT/HCPCS: 11403 ×2; 88304; J0690; J2250; J2371; J2704; J3010; J3490; J7030

== ENCOUNTER → 2024-10-05 09:22 | Outpatient (BNVA) | payer MEDICARE, MEDICAID, SELFPAY | PROVIDERS: PCP Family Medicine; Visit Provider Surgery | DX: R03.0 Elevated blood-pressure reading, without diagnosis of hypertension (principal); Z98.890 Other specified postprocedural states | CPT/HCPCS: 99214 ==

== ENCOUNTER 2025-02-27 20:21 | Emergency (ER) | payer MEDICARE, MEDICAID, SELFPAY ==
--- NOTE | 2025-02-27 20:21 | ECG_ITS ---
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
[2025-02-27 20:25] VITALS: BP 131/91; PULSE 80; RESP 16; TEMP 36.8; O2SAT 99; BMI 24.3
--- NOTE | 2025-02-27 20:46 | XRR_ITS ---
PROCEDURE INFORMATION: Exam: XR Chest Exam date and time: 02/27/2025 8:47 PM Age: 49 years old Clinical indication: Pain; Chest pressure; Additional info: Chest pain TECHNIQUE: Imaging protocol: Radiologic exam of the chest. Views: 1 view. COMPARISON: CR XR chest 1V portable [id number] 12/11/2023 6:31 PM FINDINGS: Lungs: Clear, symmetrically inflated lungs. Pleural spaces: No pleural effusion. No pneumothorax. Heart/Mediastinum: Cardiac silhouette is normal in size for technique. Bones/joints: Cervical fusion hardware is partly visualized. XR/XR chest 1V portable [id number] IMPRESSION: No acute cardiopulmonary abnormality.
--- NOTE | 2025-02-27 20:52 | ED_ITS ---
HPI - Chest Pain 2 General: Chief Complaint: Chest Pain Stated Complaint: CP Time Seen by Provider: 02/27/25 20:30 History of Present Illness: 49-year-old female with no prior history of coronary disease. She presents with left sided upper chest pain radiating into her left neck mainly, but some pain radiating into her upper back. She says it hurts at times to take a deep breath. She complains of left-sided lower neck pain, especially with swallowing. She has had this all day since she woke up this morning. It has been constant. Mild shortness of breath. No fever. She says a chronic cough, but no change in cough recently. Related Data Home Medications ?Medication ?Instructions ?Recorded ?Confirmed irbesartan 150 1 tab PO DAILY 02/27/2409/25 mg-hydrochlorothiazide 12.5 mg tablet albuterol sulfate 90 mcg/actuation 1 inh inhalation ON CE PRN 10/05/24 10/05/24 aerosol inhaler (Ventolin HFA) Previous Rx's ?Medication ?Instructions ?Recorded methylprednisolone 4 mg tablets in See Rx Instructions PO .COMPLEX 02/27/25 a dose pack (Medrol (Ba)) #21 ea Allergies Allergy/AdvReac Type Severity Reaction Status Date / Time ondansetron Allergy ADR-Nausea Verified 02/27/25 20:29 Penicillins AdvReac Intermediate Hives Verified 02/27/25 20:29 PFSH ED 2 PFSH: Medical History Thyroid disease Breast mass in female Surgical History (Updated 10/05/24 @ 10:44 by Rambo García DO) Hx of excision of mass 09/15/24 Excision of subcutaneous back mass x 2- Dr García H/O neck surgery H/O: hysterectomy Family History Other Cancer Diabetes Hyperlipidemia Hypertension Denies family history of CAD (coronary artery disease) Clotting disorder Dementia Psychiatric illness Chronic kidney disease (CKD) Suicide Anesthesia complication Bleeding disorder Family history of premature coronary artery disease Lung disease Stroke Social History Smoking and tobacco/nicotine status: current every day tobacco/nicotine user cigarettes Packs smoked per day: 1 Years cigarettes smoked: 35 Second hand smoke exposure: No Alcohol intake: never Substance/Drug Use: former Household members: none Physical Exam 2 Const: COMMON NORMALS: no acute distress GENERAL APPEARANCE: cooperative; not ill appearing and not frail appearing HENMT: COMMON NORMALS: normocephalic, atraumatic and Normal external nose present HEAD & SCALP: normocephalic and atraumatic FACE & SINUS: normal facial exam and face symmetric NOSE: Normal external nose present Eye: COMMON NORMALS: Equal, round and reactive pupils present and EOMs intact bilaterally PUPIL: Yes Equal, round and reactive pupils present Neck/C-Spine: GENERAL: Yes trachea midline Chest: CHEST: Yes Symmetrical chest wall rise and Yes tenderness (upper back left side) Resp: COMMON NORMALS: normal respiratory effort, No retractions, No use of accessory muscles and clear to auscultation bilaterally AUSCULTATION: clear to auscultation bilaterally Cardio: COMMON NORMALS: regular rate and regular rhythm RATE: regular rate RHYTHM: regular rhythm GI: COMMON NORMALS: Normal to inspection, nondistended, normoactive bowel sounds present Extremity: COMMON NORMALS: no pedal edema Neuro: MARVIN COMA SCALE: document GCS findings Marvin coma scale eye opening: Spontaneous [place] coma scale verbal response: Orientated [place] coma scale motor response: Obey commands Marvin coma scale total score: 15 S ENSORY EXAM: Yes extremities (intact) Psych: COMMON NORMALS: speech normal SPEECH: Yes normal speech Skin: COMMON NORMALS: no rashes or lesions noted GENERAL SKIN EXAM: no rashes or lesions noted Course 2 Vital Signs: Vital signs: Vital Signs Temperature 98.3 F 02/27/25 20:25 Pulse Rate 82 02/27/25 22:46 Respiratory Rate 21 H 02/27/25 22:46 Blood Pressure 148/101 02/27/25 22:46 Pulse Oximetry 96 02/27/25 22:46 Oxygen Delivery Me thod Room Air 02/27/25 22:14 MDM - Chest Pain Medical Decision Making Patient has had left-sided pleuritic type chest pain all day. Vitals are normal here. CBC is normal. BMP is normal. Liver enzymes are normal. BNP and troponin are nondetectable. D-dimer is nondetectable. Chest x-ray is normal. She will be allowed discharge home. Medrol pack for chest wall inflammation. Return for new or concerning symptoms. Lab Data 02/27/25 20:53 02/27/25 20:53 Radiology Impressions Chest X-Ray 02/27/25 20:46 IMPRESSION: No acute cardiopulmonary abnormality. Laboratory Results WBC 11.12 10^3/uL (3.29-11.43) 02/27/25 20:53 RBC 5.25 10^6/uL (3.85-5.65) 02/27/25 20:53 Hgb 15.90 g/dL (11.27-16.99) 02/27/25 20:53 Hct 46.2 % (36-47) 02/27/25 20:53 MCV 88.0 fl (85-98) 02/27/25 20:53 MCH 30.3 pg (27-33) 02/27/25 20: MCHC 34.4 g/dL (30-55) 02/27/25 20:53 RDW 13.5 % (12.1-15.1) 02/27/25 20:53 Plt Count 255 10^3/cmm (157-399) 02/27/25 20:53 MPV 11.1 fL (7.4-10.4) H 02/27/25 20:53 Neut % (Auto) 58.7 % 02/27/25 20:53 Lymph % (Auto) 27.4 % 02/27/25 20:53 [place] % (Auto) 9.4 % 02/27/25 20:53 Eos % (Auto) 3.3 % 02/27/25 20:53 Baso % (Auto) 1.0 % 02/27/25 20:53 Neut # (Auto) 6.53 10^3/uL (1.8-7.7) 02/27/25 20:53 Lymph # (Auto) 3.1 10^3/uL (0.8-4.8) 02/27/25 20:53 [place] # (Auto) 1.0 10^3/uL (0.2-0.9) H 02/27/25 20:53 Eos # (Auto) 0.4 10^3/uL (0.0-0.8) 02/27/25 20:53 Baso # (Auto) 0.1 10^3/uL (0.0-0.1) 02/27/25 20:53 Nucleated RBC % (auto) 0 % 02/27/25 20:53 Nucleated RBCs # 0.0 /100WBC 02/27/25 20:53 D-Dimer <= 0.27 ug/mLFEU (0-0.59) 02/27/25 20:53 Sodium 141 mmol/L (136-145) 02/27/25 20:53 Potassium 3.6 mmol/L (3.5-5.1) 02/27/25 20:53 Chloride 103 mmol/L (98-107) 02/27/25 20:53 Carbon Dioxide 24 mmol/L (22-29) 02/27/25 20:53 Anion Gap 17.6 (5-19) 02/27/25 20:53 BUN 20 mg/dL (6-20) 02/27/25 20:53 Creatinine 0.9 mg/dL (0.5-0.9) 02/27/25 20:53 GFR Calculation 66.0 mL/min (90-130) L 02/27/25 20:53 Glucose 95 mg/dL (65-115) 02/27/25 20:53 Calculated Osmolality 294 mOsm/kg (285-295) 02/27/25 20:53 Calcium 9.8 mg/dL (8.5-10.5) 02/27/25 20:53 Total Bilirubin 0.7 mg/dL (0.15-1.2) 02/27/25 20:53 AST 13 U/L (0-32) 02/27/25 20:53 ALT 12 U/L (0-33) 02/27/25 20:53 Alkaline Phosphatase 79 U/L (35-105) 02/27/25 20:53 Troponin T Baseline < 6 ng/L (0-10) 02/27/25 20:53 NT-Pro-B Natriuret Pep < 36 pg/mL (0-125) 02/27/25 20:53 Total Protein 7.8 g/dL (6.6-8.7) 02/27/25 20:53 Albumin 4.6 g/dL (3.5-5.2) 02/27/25 20:53 Globulin 3.2 g/dL (1.3-4.6) 02/27/25 20:53 All radiology interpretation(s) finalized by discharge Discharge Plan Discharge Patient Disposition: Home Clinical Impression: Atypical chest pain Condition: Stable Prescriptions: New methylprednisolone [Medrol (Ba)] 4 mg tablets,dose pack See Rx Instructions .ROUTE .COMPLEX Qty: 21 0RF Rx Instructions: orally per package directions No Action irbesartan-hydrochlorothiazide 150-12.5 mg tablet 1 tab PO DAILY albuterol sulfate [Ventolin HFA] 90 mcg/actuation HFA aerosol inhaler 1 inh inhalation ONCE PRN Discharge Orders: Discharge ED (Routine); Ordered 02/27/25 Ordered By: Viktor Maher Referrals: Trevor Dean MD [Primary Care Provider] - Patient Instructions: Chest Pain (ED), Opioid Safety, Pain Management Activity Restrictions/Additional Instructions: Discomfort in your chest and neck appears to be chest wall inflammation. Medication will help with this over the next few days. Return for worsening shortness of breath, worsening pain despite treatment, any other concerning symptoms. Call your doctor Saturday for a follow-up appointment. Print Language: Setswana Coding Level of Care Code ED Fueler for Sachin Lozada
[2025-02-27 20:57] VITALS: BP 137/105; PULSE 80; RESP 18; O2SAT 93
[2025-02-27 20:59] LABS: Basophils # 0.1 10^3/uL (0.0-0.1); Eosinophils # 0.4 10^3/uL (0.0-0.8); Eosinophils % 3.3 %; Hematocrit 46.2 % (36-47); Lymphocytes # 3.1 10^3/uL (0.8-4.8); Lymphocytes % 27.4 %; Mean Corpuscular HGB Conc 34.4 g/dL (30-55); Mean Corpuscular Hemoglobin 30.3 pg (27-33); Mean Platelet Volume 11.1 fL (7.4-10.4); Monocytes % 9.4 %; Neutrophils # 6.53 10^3/uL (1.8-7.7); Neutrophils % 58.7 %; Nucleated Red Blood Cells % 0 %; Platelet Count 255 10^3/cmm (157-399); Red Blood Count 5.25 10^6/uL (3.85-5.65); Red Cell Distribution Width 13.5 % (12.1-15.1); White Blood Count 11.12 10^3/uL (3.29-11.43)
[2025-02-27 21:25] LABS: Troponin(5th) Baseline < 6 ng/L (0-10)
[2025-02-27 21:34] LABS: Alanine Aminotransferase 12 U/L (0-33); Albumin Level 4.6 g/dL (3.5-5.2); Alkaline Phosphatase 79 U/L (35-105); Anion Gap 17.6 (5-19); Aspartate Amino Transferase 13 U/L (0-32); Blood Urea Nitrogen 20 mg/dL (6-20); Calcium 9.8 mg/dL (8.5-10.5); Carbon Dioxide 24 mmol/L (22-29); Chloride 103 mmol/L (98-107); Creatinine Clr Calc Pharmacy 78.6503; Globulin 3.2 g/dL (1.3-4.6); Glucose 95 mg/dL (65-115); NT Pro B Type Natriuretic Pept < 36 pg/mL (0-125); Osmolality Calculated 294 mOsm/kg (285-295); Potassium 3.6 mmol/L (3.5-5.1); Sodium 141 mmol/L (136-145); Total Bilirubin 0.7 mg/dL (0.15-1.2); Total Protein 7.8 g/dL (6.6-8.7)
[2025-02-27 21:47] LABS: D Dimer <= 0.27 ug/mLFEU (0-0.59)
[2025-02-27] MEDS: metoclopramide 5 mg/mL SDV 2 mL 10 MG IVP (22:05)
[2025-02-27] MEDS: ketorolac 30 mg/mL INJ IVP (22:08)
[2025-02-27] MEDS: morphine 4 mg/mL SDV 1 mL IVP (22:09)
[2025-02-27 22:14] VITALS: BP 133/65; PULSE 96; RESP 19; O2SAT 94
[2025-02-27 22:46] VITALS: BP 148/101; PULSE 82; RESP 21; O2SAT 96
== END 2025-02-27 22:45 | disposition home or self-care (01) ==
PROVIDERS: Emergency Provider Emergency Medicine; PCP Family Medicine
DX: R07.89 Other chest pain (principal); F17.210 Nicotine dependence, cigarettes, uncomplicated
CPT/HCPCS: 36415; 71045; 80053; 83880; 84484; 85025; 85378; 93005; 96374; 96375; 99285; J1885; J2270; J2765

== ENCOUNTER 2025-06-10 15:34 | Emergency (ER) | payer MEDICARE, MEDICAID, SELFPAY ==
[2025-06-10 15:44] VITALS: BP 106/72; PULSE 82; RESP 15; TEMP 37.1; O2SAT 98; BMI 23.7
--- OUTSIDE RECORDS SUMMARY | 2025-06-10 16:02 | XMS_ITS ---
Author Organization Unknown Medications Date Medication Dosage DosageUnit StartDate StopDate StopReason Active DoseQuantity DoseUnit Dispense DispenseUnit Refills NdcCode DrugCode PharmacyId IsPrescription MappedMedication Srcstatus Custom 2024 12:00 :00 AM clearlax 17 gram/dose oral powder 119.000 000 09/15/2024 12:00:00 AM 1 119.71378 0 0 [id number] [phone] [id number] [facility] P ACTIVE 2024 12:00 :00 AM dulcolax (bisacodyl) 10 mg rectal suppository 1.70499 0 1 1.193849 1 [id number] P ACTIVE 025 12:00 :00 AM irbesartan 150 mg-hydrochl orothiazide 12.5 mg tablet 90.0000 00 1 90.215023 1 [id number] P ACTIVE 2023 12:00 :00 AM pantoprazol e 40 mg tablet,melba yed release 30.0000 00 07/30/2024 12:00:00 AM 12/08/2024 12:00:00 AM 0 30.864340 0 [id number] [id number] -[facility]-00 837 P HISTORICAL 024 12:00 :00 AM sucralfate 1 gram tablet 120.000 000 0 120.04955 0 0 [id number] P HISTORICAL 024 12:00 :00 AM pantoprazol e 40 mg tablet,melba yed release 30.0000 00 0 30.878187 0 [id number] P HISTORI JESUS 024 12:00 :00 AM promethazin e 25 mg tablet 14.0000 00 07/21/2024 12:00:00 AM 12/08/2024 12:00:00 AM 0 14.750750 0 [id number] -[facility]-00 837 P HISTORICAL 2024 12:00 :00 AM irbesartan 150 mg-hydrochl orothiazide 12.5 mg tablet 30.0000 00 11/30/2024 12:00:00 AM 1 30.205107 [id number] 25 [id number] [id number] M ACTIVE 2024 12:00 :00 AM magnesium citrate oral solution 300.000 000 1 300.73952 0 0 [id number] P ACTIVE 2024 12:00 :00 AM miralax 17 gram/dose oral powder 1.23629 0 1 1.828307 3 [id number] P ACTIVE 2024 12:00 :00 AM docusate sodium 100 mg capsule 14.0000 00 09/15/2024 12:00:00 AM 12/08/2024 12:00:00 AM 0 14.587649 0 [id number] [id number] [facility] P HISTORICAL 2023 12:00 :00 AM sucralfate 1 gram tablet 120.000 000 07/30/2024 12:00:00 AM 08/13/2024 12:00:00 AM 0 120.76783 0 0 [id number] 001 [id number] [facility]00 837 P HISTORICAL 024 12:00 :00 AM hydrocodone 5 mg-acetamin ophen 325 mg tablet 14.0000 00 07/21/2024 12:00:00 AM 07/30/2024 12:00:00 AM 0 14.390261 0 [id number] 301 [id number] [facility]00 837 P HISTORICAL 2024 12:00 :00 AM ondansetron 8 mg disintegrat ing tablet 15.0000 00 09/15/2024 12:00:00 AM 1 15.642669 0 [id number] 07 830 [id number] [facility] P ACTIVE 2024 12:00 :00 AM hydrocodone 7.5 mg-acetamin ophen 325 mg tablet 20.0000 00 09/15/2024 12:00:00 AM 12/08/2024 12:00:00 AM 0 20.647621 0 [id number] [facility] P HISTORICAL
--- OUTSIDE RECORDS SUMMARY | 2025-06-10 16:02 | XMS_ITS | Data Portability ---
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 Lab CMP, serum or plasma 2023 024 [facility], [address], [place], [address], 4 09:50:59 lipase, serum or plasma 2023 024 [facility], [address] [facility] 248, [address] [place], [address], 4 09:51:00 CBC w/ auto diff 2023 024 [email or web address], [address], [place], [address], 5 19:17:02 Referral general surgeon referral 2023 024 [email or web address] 2 [facility], [address] [place], [address], 4 18:23:32 Procedures None recorded. Surgeries None recorded. Imaging XR, abdomen 2024 025 [email or web address] 2 [facility] ([facility] [address] [place], [address], 5 14:21:17 electrocard iogram 2023 024 [email or web address] [facility] ([facility]), [address] [place], [address], 4 17:23:42 Medication Orders magnesium citrate oral solution 2024 025 [facility], [address] [place] [address], [address], 5 10:24:19 Miralax 17 gram/dose oral powder 2024 025 [facility], [address] [place], [address], 5 10:24:16 Dulcolax (bisacodyl) 10 mg rectal suppository 2024 025 [facility] [address], [address] [place] [address], [address], 5 10:24:17 pantoprazol e 40 mg tablet,melba yed release 2023 025 [facility], [address] [place], [address], 5 10:09:05 sucralfate 1 gram tablet 2023 024 [facility] [address], [address] [place] [address], [address], 16:05:58 Patient TargetsNo targets recorded. Patient InstructionsNo instructions recorded. Reason for Referral General Surgeon Referral for Sebaceous cyst of skin Referring Physician: Dawit Dean, Family Medicine, Encounter Date: 08/24/2024 Results Created Date Observation Date Name Description Value Unit Range Abnormal Flag Note LastModifiedBy Organization Detail LastModifiedTime 07/30/20 24 07/30/2024 CBC WBC 9.5 x10 4.0-10 .5 Not Available [facility] [address] [facility], [place], [address], 07/30/2024 14:11:38 07/30/2007/30/2024 CBC RBC 5.29 x10 3.50-5 .50 Not Available [facility] [address] [facility], [place], [address], 07/30/2024 14:11:38 07/30/20 24 07/30/2024 CBC HGB 16.5 g/dL 12.0-1 6.0 high Not Available [facility] [address] [facility], [place], [address], 07/30/2024 14:11:38 07/30/20 24 07/30/2024 CBC HCT 47.6 % 37.0-4 7.0 high Not Available [facility] [address] [facility] 1, [place], [address], 07/30/2024 14:11:38 07/30/20 24 07/30/2024 CBC MCV 90.0 fL 80.0-9 9.9 Not Available [facility] [address] [facility], [place], [address], 07/30/2024 14:11:38 07/30/20 24 07/30/2024 CBC MCH 31.2 pg 27.0-3 2.0 Not Available [facility] [address] [facility] [address], [place], [address], 07/30/2024 14:11:38 07/30/2007/30/2024 CBC MCHC 34.6 g/dL 32.0-3 6.0 Not Available [facility] [address] [facility] 1, [place], [address], 07/30/2024 14:11:38 07/30/2007/30/2024 CBC RDW 13.6 % 11.5-1 4.5 Not Available [facility] [address] [facility] 1, [place], [address], 07/30/2024 14:11:38 07/30/2007/30/2024 CBC plt 276.2 x10 140.0- 451.0 Not Available [facility] [address] [facility], [place], [address], 07/30/2024 14:11:38 07/30/20 24 07/30/2024 CBC lymphocytes % 30.5 % 20.0-5 0.0 Not Available [facility] [address] [facility], [place], [address], 07/30/2024 14:11:38 07/30/20 24 07/30/2024 CBC granulcytes % 52.9 % 30.0-7 0.0 Not Available [facility] [address] [facility] 1, [place], [address], 07/30/2024 14:11:38 07/30/2007/30/2024 CBC monocytes % 10.7 % 2.0-16 .0 Not Available [facility] [address] [facility] 1, [place], [address], 07/30/2024 14:11:38 07/30/20 24 07/30/2024 CBC granulcytes# 5.0 x10 Not Estephanie ilable [facility] [address] [facility] 1, [place], [address], 07/30/2024 14:11:38 07/30/20 24 07/30/2024 CBC lymphocytes # 2.9 x10 Not Available [facility] [address] [facility] 1, [place], [address], 07/30/2024 14:11:38 07/30/20 24 07/30/2024 CBC monocytes # 1.0 x10 Not Avai lable [facility] [address] [facility] 1, [place], [address], 07/30/2024 14:11:38 07/30/20 24 07/31/2024 COMPR EHENS BENNY METAB OLIC PANEL glucose 76 mg/dL 65-99 normal Fasti ng refer ence inter rashmi Not Available [address] [address] [place], [address], 07/31/2024 09:50:59 07/30/20 24 07/31/2024 COMPR EHENS BENNY METAB OLIC PANEL urea nitrogen (BUN) 17 mg/dL 7-25 normal Not Available [address] [address] [place], [address], 07/31/2024 09:50:59 07/30/20 24 07/31/2024 COMPR EHENS BENNY METAB OLIC PANEL creatinine 0.89 mg/dL 0.50-1 .03 normal Not Available [facility] [address] [address] [place], [address], 07/31/2024 09:50:59 07/30/20 24 07/31/2024 COMPR EHENS BENNY METAB OLIC PANEL eGFR 78 mL/mi n/1.7 3m2 > or = 60 normal Not Available [address] [address] [place], [address], 07/31/2024 09:50:59 07/30/20 24 07/31/2024 COMPR EHENS BENNY METAB OLIC PANEL BUN/creatini ne ratio SEE NOTE: (calc ) 6-22 Not Repor [place]: BUN and Creat inine are withi n refer ence range . Not Available [address], [address], 07/31/2024 09:50:59 07/30/20 24 07/31/2024 COMPR EHENS BENNY METAB OLIC PANEL sodium 141 mmol/ L 135-14 6 normal Not Available [address], [address], 07/31/2024 09:50:59 07/30/20 24 07/31/2024 COMPR EHENS BENNY METAB OLIC PANEL potassium 4.3 mmol/ L 3.5-5. 3 normal Not Available [address], [address], 07/31/2024 09:50:59 07/30/20 24 07/31/2024 COMPR EHENS BENNY METAB OLIC PANEL chloride 102 mmol/ L 98-110 normal Not Available [address], [address], 07/31/2024 09:50:59 07/30/20 24 07/31/2024 COMPR EHENS BENNY METAB OLIC PANEL carbon dioxide 30 mmol/ L 20-32 normal Not Available [address], [address], 07/31/2024 09:50:59 07/30/20 24 07/31/2024 COMPR EHENS BENNY METAB OLIC PANEL calcium 10.1 mg/dL 8.6-10 .4 normal Not Available [address], [address], 07/31/2024 09:50:59 07/30/20 24 07/31/2024 COMPR EHENS BENNY METAB OLIC PANEL protein, total 7.5 g/dL 6.1-8. 1 normal Not Available [address], [address], 07/31/2024 09:50:59 07/30/20 24 07/31/2024 COMPR EHENS BENNY METAB OLIC PANEL albumin 4.8 g/dL 3.6-5. 1 normal Not Available [address], [address], 07/31/2024 09:50:59 07/30/20 24 07/31/2024 COMPR EHENS BENNY METAB OLIC PANEL globulin 2.7 g/dL_ (calc ) 1.9-3. 7 normal Not Available [address], [address], 07/31/2024 09:50:59 07/30/20 24 07/31/2024 COMPR EHENS BENNY METAB OLIC PANEL albumin/glob ulin ratio 1.8 (calc ) 1.0-2. 5 normal Not Available [address], [address], 07/31/2024 09:50:59 07/30/20 24 07/31/2024 COMPR EHENS BENNY METAB OLIC PANEL bilirubin, total 1.2 mg/dL 0.2-1. 2 normal Not Available [address], [address], 07/31/2024 09:50:59 07/30/20 24 07/31/2024 COMPR EHENS BENNY METAB OLIC PANEL alkaline phosphatase 75 U/L 37-153 normal Not Available [facility] [employer] [address], [address], 07/31/2024 09:50:59 07/30/20 24 07/31/2024 COMPR EHENS BENNY METAB OLIC PANEL AST 13 U/L 10-35 normal Not Available [address], [place], [address], 07/31/2024 09:50:59 07/30/20 24 07/31/2024 COMPR EHENS BENNY METAB OLIC PANEL ALT 13 U/L 6-29 normal Not Available [facility] [address] [address] [place], [address], 07/31/2024 09:50:59 07/30/20 24 07/31/2024 LIPAS E lipase 25 U/L 7-60 normal Not Available [facility] [address] [address] [place], [address], 07/31/2024 09:51:00 04/24/20 24 04/24/2024 elect lyssa ventura am No observ ation record ed. [email or web address] [facility] ([facility]) [address] [place], [address], 04/24/2024 13:20:20 12/09/19 25 12/08/2024 XR, abdom en No observ ation record ed. [address] [place], [address], 12/10/2024 16:28:44 12/10/19 25 11/26/2024 MAMMO , scree smith, digit al, bilat eral No observ ation record ed. [email or web address] [facility] [address] [place], [address], 12/10/2024 16:36:48 Result Notes None recorded. Problems Name Problem SNOMED Code Status Onset Date Resolution Date Notes Provider Name and Address Organization Details Recorded Time Bipolar disorder 86425740 Active 2021 JENNIFER [facility] 4 13:05:52 Chronic abdominal pain 987280668 Active 2021 Chronic pelvic pain; 2 9:58AM by Page Guzman LPN, Office Visit; Promoted; acuity set as *; Not Available [facility] 3 03:14:04 Anxiety 18134736 Active 2021 PAGE mays [facility], [place] 4 13:05:44 Migraine 00486017 Active 2021 Migraine syndrome; 2 9:58AM by Page Guzman LPN, Office Visit; Promoted; acuity set as *; Not Available [facility] 3 03:14:07 History of calculus of kidney 575613367 Active 2022 PAGE mays [facility], [place] 3 11:01:22 Essential hypertensi on 52332731 Active 2023 PAGE mays [facility], [place] 4 13:06:09 Sebaceous cyst of skin 664693485 Active 2023 Cori mays [facility], MiriamLSusieCSusie 4 10:16:36 Hyperlipid emia 19726690 Active 2024 PAGE mays [facility], MiriamLSusieCSusie 5 10:17:08 Depressive disorder 80214684 Active 2024 PAGE mays [facility], GildardoCSusie 5 10:17:24 Sensorineu ral hearing loss of bilateral ears 260987586 Active 2024 PAGE mays [facility], L.LSusieCSusie 5 17:33:45 Problem Notes None recorded. Procedures Surgical History Date Name Laterality Status Provider Name and Address Organization Details Recorded Time 11/26/19 25 Most Recent Mammogram completed [facility] 12/08/2024 10:11:37 08/24/20 24 jr suture/staple removal completed [facility]i [facility]errano [facility] 08/24/2024 10:16:02 08/13/20 24 Excision and closure completed Dawit Dean MD [address] [place] [address], [address], [facility], De[place].L.CSusie 08/13/2024 15:27:47 11/20/20 21 Colonoscopy completed [facility], LSusieLSusieCSusie 08/28/2023 10:55:18 12/26/19 20 primary fusion of cervical spine completed [facility], MiriamL.CSusie 08/28/2023 10:54:24 lumpectomy of left breast completed [facility], MiriamL.CSusie 08/28/2023 11:00:45 Hysterectomy completed [facility], MiriamLJl 08/28/2023 11:02:07 Imaging Results None recorded. Procedure Notes None recorded. Medical Equipment None Reported. Allergies Allergen ID Allergen Name Allergen Category Reaction Reaction Severity Criticality Documentation Date Start Date Code Code System Note Provider Name and Address Organization Details Recorded Time 324 Product containin g penicilli n (product) medicatio n hives Not available Not available 02/14/2023 06674 8001 SNOMED Cori mays [facility], GildardoCSusie 12:57:45 325 Victoza medicatio n Not available Not available Not available 02/14/2023 75579 3 RxNorm neomy a, dennys da, ozemp ic, [place], etc. due to famil y hx of medul christen thyro id cance r Cori mays [facility], [place] 12:58:50 21156 Zofran medicatio n vomiting Not available Not available 08/28/2023 55050 RxNorm PAGEAnca mays [facility] 10:58:12 Medications Name Sig Start Date Stop Date Status Note LastModified by Organization Details LastModified Time mucus d er 12h 60-600mg tab TAKE 1 TABLET BY MOUTH TWICE DAILY FOR 10 DAYS 02/16 completed Not Available Not Available Not Available eq sinus & congestion 30mg tab TAKE 1 TO 2 TABLETS BY MOUTH THREE TIMES DAILY NEEDED FOR CONGESTIO N 02/14 completed Not Available Not Available Not Available celecoxib 200 mg capsule 02/16 completed Not Available Not Available Not Available cyclobenzap rine 10 mg tablet TAKE 1 TABLET BY MOUTH TWICE DAILY NEEDED FOR MUSCLE SPASM 02/14 completed Not Available Not Available Not Available Miralax 17 gram/dose oral powder Take 17 g by oral route for 30 days. 2024 active Not Available Not Available Not Avai lable irbesartan 150 mg-hydrochl orothiazide 12.5 mg tablet Take 1 tablet by mouth once daily 2024 active Not Available Not Available Not Avai lable cetirizine 10 mg tablet TAKE 1 TABLET BY MOUTH ONCE DAILY NEEDED FOR ALLERGY SYMPTOMS MAY TAKE UP TO TWICE DAILY NEEDED 02/16 completed Not Available Not Available Not Available azithromyci n 250 mg tablet TAKE 2 TABLETS BY MOUTH ON DAY 1, AND THEN TAKE 1 TABLET BY MOUTH ONCE A DAY ON DAY 2 THROUGH DAY 5 03/03 completed Not Available Not Available Not Available hydrocodone 5 mg-acetamin ophen 325 mg tablet TAKE 1 TABLET BY MOUTH EVERY 6 HOURS NEEDED FOR PAIN 07/30 completed Not Available Not Available Not Available ondansetron HCl 8 mg tablet TAKE 1 TABLET BY MOUTH EVERY 6 HOURS NEEDED FOR NAUSEA 08/28 completed Not Available Not Available Not Available sucralfate 1 gram tablet TAKE 1 TABLET BY MOUTH 4 TIMES DAILY WITH MEALS 08/13 completed Not Available Not Available Not Available promethazin e 12.5 mg tablet TAKE 1 TABLET BY MOUTH EVERY 8 HOURS NEEDED FOR NAUSEA 08/28 completed Not Available Not Available Not Available ondansetron HCl 4 mg tablet TAKE 1 TABLET BY MOUTH EVERY 6 HOURS NEEDED FOR NAUSEA AND VOMITING 08/28 completed Not Available Not Available Not Available prednisone 20 mg tablet TAKE 1 TABLET BY MOUTH TWICE DAILY FOR 5 DAYS 03/03 completed Not Available Not Available Not Available metronidazo le 500 mg tablet TAKE 1 TABLET BY MOUTH EVERY 12 HOURS 02/14 completed Not Available Not Available Not Available prochlorper azine maleate 10 mg tablet TAKE 1/2 (ONE-HALF ) TABLET BY MOUTH EVERY 12 HOURS NEEDED FOR NAUSEA AND VOMITING 03/03 completed Not Available Not Available Not Available ciprofloxac in 500 mg tablet TAKE 1 TABLET BY MOUTH TWICE DAILY 02/14 completed Not Available Not Available Not Available sulfamethox azole 800 mg-trimetho prim 160 mg tablet TAKE 1 TABLET BY MOUTH TWICE DAILY FOR 5 DAYS 07/30 completed Not Available Not Available Not Available ondansetron 8 mg disintegrat ing tablet DISSOLVE ONE TABLET ON top of THE TONGUE EVERY 8 HOURS NEEDED FOR NAUSEA AND vomiting for FIVE DAYS active Not Available Not Available No t Available Dulcolax (bisacodyl) 10 mg rectal suppository Insert 2 supposito dori every day by rectal route for 1 day, for constipat ion. take 2 pr X 1; repeat in 4 hours X 1 if no result. 2024 active Not Available Not Available Not Avai lable oxycodone-a cetaminophe n 5 mg-325 mg tablet TAKE 1 TABLET BY MOUTH EVERY 4 HOURS NEEDED FOR PAIN 08/28 completed Not Available Not Available Not Available alprazolam 0.5 mg tablet TAKE ONE TABLET BY MOUTH 30 MINUTES TO 1 HOUR PRIOR TO PROCEDURE 02/14 completed Not Available Not Available Not Available ofloxacin 0.3 % ear drops INSTILL 4 DROPS INTO EACH EAR TWICE DAILY FOR 14 DAYS 07/30 completed Not Available Not Available Not Available tamsulosin 0.4 mg capsule TAKE 1 CAPSULE BY MOUTH ONCE DAILY 03/03 completed Not Available Not Available Not Available meclizine 25 mg tablet TAKE 1 TABLET BY MOUTH THREE TIMES DAILY NEEDED FOR DIZZINESS 02/14 completed Not Available Not Available Not Available hydrocodone 7.5 mg-acetamin ophen 325 mg tablet TAKE ONE TABLET BY MOUTH EVERY 6 HOURS NEEDED FOR PAIN 12/08 completed Not Available Not Available Not Available pantoprazol e 40 mg tablet,melba yed release TAKE 1 TABLET BY MOUTH ONCE DAILY FOR 30 DAYS 12/08 completed Not Available Not Available Not Available buspirone 10 mg tablet TAKE 1 TABLET BY MOUTH TWICE DAILY 08/28 completed Not Available Not Available Not Available promethazin e 25 mg tablet TAKE 1 TABLET BY MOUTH THREE TIMES DAILY NEEDED FOR NAUSEA AND VOMITING 12/08 completed Not Available Not Available Not Available docusate sodium 100 mg capsule TAKE ONE CAPSULE BY MOUTH TWICE DAILY 12/08 completed Not Available Not Available Not Available magnesium citrate oral solution Take 300 mL by oral route for 1 day. 2024 active Not Available Not Available Not Avai lable methylpredn isolone 4 mg tablets in a dose pack TAKE BY MOUTH DIRECTED ON INSIDE OF PACKAGE 08/28 completed Not Available Not Available Not Available SSD 1 % topical cream APPLY A 1.5MM THICKNESS TO AFFECTED AREA TWICE DAILY 03/03 completed Not Available Not Available Not Available celecoxib 100 mg capsule TAKE 1 CAPSULE BY MOUTH TWICE DAILY NEEDED FOR PAIN 02/14 completed Not Available Not Available Not Available oxybutynin chloride 5 mg tablet TAKE 1 TABLET BY MOUTH THREE TIMES DAILY PAIN FOR URINARY DISCOMFOR T 08/28 completed Not Available Not Available Not Available cefdinir 300 mg capsule TAKE 1 CAPSULE BY MOUTH TWICE DAILY 03/03 completed Not Available Not Available Not Available fluoxetine 20 mg capsule TAKE 1 CAPSULE BY MOUTH ONCE DAILY 08/28 completed Not Available Not Available Not Available fluticasone propionate 50 mcg/actuati on nasal spray,suspe nsion INSTILL ONE SPRAY INTO EACH NOSTRIL ONE TO TWO TIMES DAILY FOR ALLERGY SYMPTOMS 02/16 completed Not Available Not Available Not Available naproxen 500 mg tablet TAKE 1 TABLET BY MOUTH EVERY 12 HOURS NEEDED FOR PAIN 03/03 completed Not Available Not Available Not Available metoclopram raya 10 mg tablet 02/16 completed Not Available Not Available Not Available Ventolin HFA 90 mcg/actuati on aerosol inhaler INHALE 2 PUFFS BY MOUTH 4 TIMES DAILY NEEDED FOR SHORTNESS OF BREATH FOR WHEEZING active Not Available Not Available No t Available oxycodone 5 mg tablet TAKE 1 TABLET BY MOUTH EVERY 6 HOURS NEEDED FOR MODERATE PAIN FOR 3 DAYS 08/28 completed Not Available Not Available Not Available Mucinex D 60 mg-600 mg tablet,exte nded release Take 1 tablet twice a day by oral route for 10 days. 02/16 completed Not Available Not Available Not Available Preparation H(phenyleph ,cocoa buttr) 0.25 %-88.44 % rectal suppository Insert 1 supposito ry twice a day by rectal route for 6 days. 08/28 completed Not Available Not Available Not Available Procto-Med HC 2.5 % topical cream perineal applicator APPLY A THIN LAYER TO THE AFFECTED AREA(S) 2 TO 4 TIMES DAILY 08/28 completed Not Available Not Available Not Available Vitals Date Recorded Body height Body mass index (BMI) Body weight Body temperature Heart rate Oxygen saturation Oxygen saturation in Arterial blood by Pulse oximetry Systolic And Diastolic Provider Name and Address Organization Details Last Updated DateTime 5 172.72 cm 24.9 kg/m2 87597.1 5 g 98.1 [degF] 87 /min 97 % 97 % 138/88 mm[Hg] PAGE GUZMAN [facility] 5 10:07:49 Date Recorded Body height Body mass index (BMI) Body weight Body temperature Heart rate Oxygen saturation Oxygen saturation in Arterial blood by Pulse oximetry Systolic And Diastolic Provider Name and Address Organization Details Last Updated DateTime 4 172.72 cm 24.6 kg/m2 60101.9 6 g 98.1 [degF] 100 /min 97 % 97 % 112/80 mm[Hg] PAGE GUZMAN [facility] 4 13:10:38 Date Recorded Body height Body mass index (BMI) Body weight Body temperature Heart rate Oxygen saturation Oxygen saturation in Arterial blood by Pulse oximetry Systolic And Diastolic Provider Name and Address Organization Details Last Updated DateTime 4 172.72 cm 25.2 kg/m2 52279.3 3 g 98.2 [degF] 110 /min 97 % 97 % 135/78 mm[Hg] PAGE GUZMAN [facility] 4 14:52:59 Social History Question Answer Notes LastModified by Organizat ion Details LastModified Time Tobacco Smoking Status Current Every Day Smoker PAGE GUZMAN [facility] 08/28/2023 11:00:08 Which Illicit Or Recreational Drugs Have You Used? Alexis Information not available 08/28/2023 What Is Your Current Pack Years? [email or web address] Information not available 08/28/2023 How Much Tobacco Do You Smoke? 1 PPD [email or web address] Information not available 08/28/2023 Sex: Unknown Functional Status Question Answer Note LastModified by Organizat ion Details LastModified Time Do you use any illicit or recreational drugs? Yes [email or web address] Information not available 08/28/2023 Do you or have you ever used any other forms of tobacco or nicotine? No [email or web address] Information not available 08/28/2023 What is your level of alcohol consumption? Occasional Information not available 08/28/2023 Mental Status None recorded. Family History Relationship Description Onset Age of this Age Resolved Age Notes LastModified by Organization Details LastModified Time Father Malignant lymphoma [email or web address] Not available 08/28 10:53:13 Father Medullary thyroid carcinoma [email or web address] Not available 08/28 10:53:23 Father Diabetes mellitus [email or web address] Not available 08/28 10:53:35 Mother Diabetes mellitus Not available 08/28 10:53:35 Medical History No medical history recorded. Gynecological History Statement/Question Response Most Recent Mammogram 11/26/2024 Obstetrics History GPAL:G 0 P 0 0 0 0 Immunizations Vaccine Type Date Status Note Provider Nam e and Address Organization Details Recorded Time Influenza, split virus, trivalent, preservative 7 completed Not Available [facility] 06/22/2023 02:36:10 Past Encounters Encounter ID Performer Location Encounter Start Date Encounter Closed Date Diagnosis/Indication Diagnosis SNOMED-CT Code Diagnosis ICD10 Code Diagnosis Note [id number] Dawit Dean MD [facility] ([facility] [address] [place] [address] 02/14/2023 12:47:58 02/20/2023 15:52:24 Essential hypertension 01898299 I10 Pain of left breast 1010 921060 N64.4 Fatigue 74979619 R53.83 [id number] Dawit Dean MD [facility] ([facility]) [address] [place] [address] 02/27/2023 10:49:26 03/07/2023 09:00:23 Hemorrhoids 40467744 K64.9 [id number] Dawit Dean MD [facility] ([facility]) [address] [place] [address] 03/19/2023 12:54:10 03/19/2023 13:59:12 Mass of left breast 5364466442 2201417 N63.20 we have been [id number] Dawit Dean MD [facility] ([facility]) [address] [place] [phone] 08/28/2023 10:41:48 08/28/2023 13:43:53 Dermatographic urticaria 2261890 L50.3 Seasonal a llergic rhinitis 412618729 J30.2 Dysfunctio n of eustachian tube 24396131 H69.92 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 Chronic neck pain [id number] 0386 107 M54.2 Bipolar disorder [id number] F31.9 not seeking care for her bipolar disorder for the last several years. [id number] Dawit Dean MD [facility] ([facility]) [address] [place] [address] [phone] 5 02/27/2024 09:43:24 02/28/2024 10:13:12 Elevated blood-pressure reading without diagnosis of hypertension [id number] R03.0 [id number] Dawit Dean MD [facility] ([facility]) [address] [place] [address] [phone] 5 03/03/2024 09:40:31 03/03/2024 12:20:54 Essential hypertension [id number] I10 Hyperlipidemia 45637104 E78.5 focus on reducing saturated fat as discussed. Benign ess ential hypertension 4402876 I10 cuff is accurate [id number] Dawit Dean MD [facility] ([facility]) [address] [place] [address] [phone] 5 04/24/2024 12:21:43 04/28/2024 17:23:42 Preoperative cardiovascular examination [id number] Z01.065 [id number] Dawit Dean MD [facility] ([facility]) [address] [place] [address] [phone] 5 07/30/2024 13:00:37 07/30/2024 13:54:58 Epigastric pain [id number] R10.13 go to er if worsening, black/coy y or bloody stool or feeling worse in any way. she is not taking any nsaids lately but she was up until a few weeks ago. she was taking two pills twice weekly. [id number] Dawit Dean MD [facility] ([facility]) [address] [place] [address] [phone] 5 08/13/2024 14:33:09 08/13/2024 15:29:59 Sebaceous cyst of skin [id number] L72.3 [id number] Dawit Dean MD [facility] ([facility]) [address] [place] [address] [phone] 08/24/2024 09:57:02 08/28/2024 16:44:37 Sebaceous cyst of skin [id number] L72.3 [id number] Dawit Dean MD [facility] ([facility]) [address] [place] [address] [phone] 5 12/08/2024 09:49:58 12/08/2024 11:20:32 Bipolar disorder [id number] F31.9 not seeking care for her bipolar disorder for the last several years. Essential hypertension 02217537 I10 Hyperlipidemia 78214214 E78.5 focus on reducing saturated fat as discussed. Depressive disorder 3548 9007 F33.1 Chronic constipation [id number] K59.09 Health Concerns Section Related Observation LastModified by Organization [place] LastModified Time None Recorded Concern Status LastModified by Organization Details LastModified Time None Recorded Advance Directives Directive None Recorded Payers Insurance Date Sequence Insurance Name Policy Number Policy [place] Covered Member ID [place] Member ID Guarantor Name 12/07/2024 2 [place] Margarita Angel Thierry [id number] Margarita Angel Thierry 12/07/2024 1 [place] [facility] [place] Margarita Yuin [id number] Margarita Angel Thierry 12/07/2024 MEDIC[place] B[place]: [facility] Margarita Angel Thierry [id number] Margarita Jeanne Guadarrama 12/07/2024 [place] - [facility] (MEDICARE) Margarita Angel Thierry [id number] Margarita Angel Thierry 12/07/2024 [place] [facility] [place]) Margarita Jeanne Guadarrama [id number] Margarita Guadarrama Notes Date Note Type Note Provider Name and Address Organization Details Recorded Time 07/30/2024 text/html Abdominal PainReported bypatient.Location:p eriumbilical Quality:bloating; pressure Severity:pain level 5/10;worse Onset/Timing:acute (2 weeks) Aggravating Factors:movement Alleviating Factors:heating pad, tylenol Associated Symptoms:no fever; no blood in the urine; no heartburn; no vomiting;shortness of breath;nausea;decrea sed appetite; no dysuria; no changes in stool Previous Tests, Treatment and/or Diagnostic Procedures:CT of the abdomen her bp is doing very very well also at home. stress is reasonably well controlled. the pain is in the epigastrium.pain is worse in the morning.it is not better or worse before or after eating.she feels full faster than usual she has a bowel movement nearly every day usually. however 3 days ago she was constipated and took a stool softener she went the next day. she only drinks alcohol rarely now. it has been a month. she has caffeine frequently (3 sodas per day)she is still smoking about a pack per day we discussed avoiding the above as well as spicy and acidic foods. no bloody stool no black/tarry stoolher weight is stable. Dawit Dean MD [address] [place] [address], [phone], [facility], [place] 07/30/2024 13:49:55 08/13/2024 text/html Skin LesionRepor [place] bypatient.Location:b ack Quality:tender Duration:1 year Timing:gradual; constant Associated Symptoms:no drainingNotes:Christiano wagner is here to have the cyst removed from her back today skin Dawit Dean MD [address] [place] [address], [phone], [facility], [place] 08/13/2024 15:28:41 12/08/2024 text/html Abdominal PainReported bypatient.Location:R UQ; LUQ Quality:bloating Severity:worse Duration:constant Alleviating Factors:moving bowels Associated Symptoms:no blood in stool; normal appetite;nausea;cons tipationNotes:christiano wagner states that recently she went 12 days without a BM. She took miralax and docusate and was able to have a small BM. Then she went another 4 days without a BM and had a small BM this morning. Patient reports that she has a lot of gas pressure. she is eating wellwe discussed daily walk increase fiber as discussed increase water to a goal of 3 quarts/day Dawit Dean MD [address] [place] [address], [phone], [facility], [place] 12/08/2024 10:28:57 OBGyn Episode No OBEpisode recorded.
[2025-06-10 18:00] VITALS: BP 125/86; PULSE 77; O2SAT 96
[2025-06-10 18:01] LABS: Hematocrit 46.0 % (36-47); Hemoglobin 15.70 g/dL (11.27-16.99); Mean Corpuscular HGB Conc 34.1 g/dL (30-55); Mean Corpuscular Hemoglobin 30.1 pg (27-33); Mean Corpuscular Volume 88.3 fl (85-98); Nucleated Red Blood Cells % 0 %; Platelet Count 239 10^3/cmm (157-399); Red Blood Count 5.21 10^6/uL (3.85-5.65); White Blood Count 10.52 10^3/uL (3.29-11.43)
[2025-06-10 18:23] LABS: Alanine Aminotransferase 13 U/L (0-33); Albumin Level 4.6 g/dL (3.5-5.2); Alkaline Phosphatase 83 U/L (35-105); Anion Gap 17.8 (5-19); Aspartate Amino Transferase 13 U/L (0-32); Blood Urea Nitrogen 14 mg/dL (6-20); Calcium 9.5 mg/dL (8.5-10.5); Carbon Dioxide 24 mmol/L (22-29); Chloride 105 mmol/L (98-107); Creatinine Clr Calc Pharmacy 100.0321; Globulin 2.8 g/dL (1.3-4.6); Glucose 86 mg/dL (65-115); Osmolality Calculated 296 mOsm/kg (285-295); Potassium 3.8 mmol/L (3.5-5.1); Sodium 143 mmol/L (136-145); Total Protein 7.4 g/dL (6.6-8.7)
--- NOTE | 2025-06-10 18:40 | CTR_ITS ---
PROCEDURE INFORMATION: Exam: CT Neck With Contrast Exam date and time: 06/10/2025 6:51 PM Age: 49 years old Clinical indication: Neck pain and other: RT ear pain; Prior surgery; Surgery date: 6+ months; Surgery type: Cspine; Additional info: Pain and swelling to ear TECHNIQUE: Imaging protocol: Computed tomography of the neck with contrast. Radiation optimization: All CT scans at this facility use at least one of these dose optimization techniques: automated exposure control; mA and/or kV adjustment per patient size (includes targeted exams where dose is matched to clinical indication); or iterative reconstruction. Contrast material: OMNIPAQUE 3350; Contrast volume: 100 ml; Contrast route: INTRAVENOUS (IV); COMPARISON: CT neck w con* [id number] 04/07/2024 4:34 PM RADIATION DOSE METRICS: Total DLP (mGy-cm): 232.52 FINDINGS: Brain: Visualized intracranial structures are normal. Mastoid air cells: Normal mastoid air cells. Auditory system: No middle ear fluid on either side. Salivary glands: Symmetric salivary glands with normal enhancement pattern. Pharynx: Normal fossa of Rosenmuller. Normal uvula. Larynx: Normal epiglottis. Thyroid: Stable 1.2 cm isodense right thyroid nodule thyroid. Trachea: Visualized trachea is unremarkable. Lungs: Large calcified granuloma noted in the right upper lobe. Lung apices are otherwise clear. Lymph nodes: Reactive size lymph nodes are noted in the neck. Bones/joints: There has been prior cervical spine fusion procedures spanning C3 through C6 with anterior and posterior fixation hardware. Adequate spinal canal. No evidence of acute fracture or destructive bony lesion. Soft tissues: Tissue planes surrounding the right ear appear normal and symmetric with respect to the left. No abnormal fluid collection or soft tissue gas. No prevertebral soft tissue swelling. CT/CT neck w con* [id number] IMPRESSION: 1. No acute abnormality identified to explain patient's right ear pain. In particular, there are no findings of otitis media. No significant soft tissue swelling is evident and no soft tissue gas is present. 2. Stable right thyroid nodule.
[2025-06-10] MEDS: iohexol 350 mg/mL 500 mL Btl (per mL) IV (18:53)
--- NOTE | 2025-06-10 21:29 | W.ED.EAR ---
HPI - Ear Problem General: Chief complaint: Ear Stated complaint: Pain on rt. side of face Time Seen by Provider: 06/10/25 16:09 History of Present Illness: 49-year-old female patient presents to the emergency department with pain to the right side of her face that goes into her ear. Patient states she is not having chest pain she is not having shortness of breath patient states she has been having this pain for weeks and has been seen by her primary care physician for this. Patient states her primary care physician wants to order an MRI to rule out any tumor. Patient denies any headache. Patient [place] any difficulty swallowing. Patient denies any mastoid tenderness Related Data Home Medications ?Medication ?Instructions ?Recorded ?Confirmed irbesartan 150 1 tab PO DAILY 02/27/24 10/05/24 mg-hydrochlorothiazide 12.5 mg tablet albuterol sulfate 90 mcg/actuation 1 inh inhalation ONCE PRN 10/05/24 10/05/24 aerosol inhaler (Ventolin HFA) Previous Rx's ?Medication ?Instructions ?Recorded methylprednisolone 4 mg tablets in See Rx Instructions PO .COMPLEX 02/27/25 a dose pack (Medrol (Ba)) #21 ea clindamycin HCl 300 mg capsule 300 mg PO BID 7 days #14 caps 06/10/25 (Cleocin HCl) Allergies Allergy/AdvReac Type Severity Reaction Status Date / Time ondansetron Allergy ADR-Nausea Verified 02/27/25 20:29 Penicillins AdvReac Intermediate Hives Verified 02/27/25 20:29 Review of Systems General: Reports: 10 or more systems reviewed and unremarkable except in HPI and below [facility] ED PFSH: Medical History (Updated 06/10/25 @ 21:34 by Chelsey Cesar NP) Thyroid disease Breast mass in female Surgical History (Updated 10/05/24 @ 10:44 by Rambo García DO) Hx of excision of mass 09/15/24 Excision of subcutaneous back mass x 2- Dr García H/O neck surgery H/O: hysterectomy Family History Other Cancer Diabetes Hyperlipidemia Hypertension Denies family history of CAD (coronary artery disease) Clotting disorder Dementia Psychiatric illness Chronic kidney disease (CKD) Suicide Anesthesia complication Bleeding disorder Family history of premature coronary artery disease Lung disease Stroke Social History (Reviewed 02/27/25 @ 20:56 by JOSE GUADALUPE Cardenas Smoking and tobacco/nicotine status: current every day tobacco/nicotine user cigarettes Packs smoked per day: 1 Years cigarettes smoked: 35 Second hand smoke exposure: No Alcohol intake: never Substance/Drug Use: former Household members: none Physical Exam Const: COMMON NORMALS: no acute distress GENERAL APPEARANCE: cooperative; not ill appearing and not frail appearing HENMT: COMMON NORMALS: normocephalic, atraumatic and Normal external nose present HEAD & SCALP: normocephalic and atraumatic FACE & SINUS: normal facial exam and face symmetric NOSE: Normal external nose present Eye: COMMON NORMALS: Equal, round and reactive pupils present and EOMs intact bilaterally PUPIL: Yes Equal, round and reactive pupils present Neck/C-Spine: GENERAL: Yes trachea midline Chest: CHEST: Yes Symmetrical chest wall rise and Yes tenderness (upper back left side) Resp: COMMON NORMALS: normal respiratory effort, No retractions, No use of accessory muscles and clear to auscultation bilaterally AUSCULTATION: clear to auscultation bilaterally Cardio: COMMON NORMALS: regular rate and regular rhythm RATE: regular rate RHYTHM: regular rhythm GI: COMMON NORMALS: Normal to inspection, nondistended, normoactive bowel sounds present Extremity: COMMON NORMALS: no pedal edema Neuro: [place] SCALE: document GCS findings [place] coma scale eye opening: Spontaneous [place] coma scale verbal response: Orientated [place] coma scale motor response: Obey commands [place] coma scale total score: 15 SENSORY EXAM: Yes extremities (intact) Psych: COMMON NORMALS: speech normal SPEECH: Yes normal speech Skin: COMMON NORMALS: no rashes or lesions noted GENERAL SKIN EXAM: no rashes or lesions noted Course Vital Signs: Vital signs: Vital Signs Temperature 98.0 F 06/10/25 21:45 Pulse Rate 73 06/10/25 21:45 Respiratory Rate 18 06/10/25 21:45 Blood Pressure 148/93 06/10/25 21:45 Pulse Oximetry 97 06/10/25 21:45 Oxygen Delivery Me thod Room Air 06/10/25 15:44 MDM - Ear Medical Decision Making Patient is well-appearing nontoxic in no acute distress. 49-year-old female patient presents to the emergency department with pain to the right side of her face that goes into her ear. Patient states she is not having chest pain she is not having shortness of breath patient states she has been having this pain for weeks and has been seen by her primary care physician for this. Patient states her primary care physician wants to order an MRI to rule out any tumor. Patient denies any headache. Patient [place] any difficulty swallowing. Patient denies any mastoid tenderness patient's lungs are Clear to auscultate patient's abdomen is soft and nontender. Patient does not have any evidence of hypoxemia or meningeal irritation. Patient's vital signs are stable patient is afebrile. Patient did have tenderness across the chest wall that is consistent with costochondritis I advised patient is to follow-up with his primary care physician for possible stress test. Do not feel patient would warrant any additional emergent testing at this time Lab Data 06/10/25 17:52 06/10/25 17:[address] 06/10/25 18:40 IMPRESSION: 1. No acute abnormality identified to explain patient's right ear pain. In particular, there are no findings of otitis media. No significant soft tissue swelling is evident and no soft tissue gas is present. 2. Stable right thyroid nodule. Laboratory Results WBC 10.52 10^3/uL (3.29-11.43) 06/10/25 17:52 RBC 5.21 10^6/uL (3.85-5.65) 06/10/25 17:52 Hgb 15.70 g/dL (11.27-16.99) 06/10/25 17:52 Hct 46.0 % (36-47) 06/10/25 17:52 MCV 88.3 fl (85-98) 06/10/25 17:52 MCH 30.1 pg (27-33) 06/10/25 17:52 MCHC 34.1 g/dL (30-55) 06/10/25 17:52 RDW 13.4 % (12.1-15.1) 06/10/25 17:52 Plt Count 239 10^3/cmm (157-399) 06/10/25 17:52 MPV 10.9 fL (7.4-10.4) H 06/10/25 17:52 Neut % (Auto) 62.8 % 06/10/25 17:52 Lymph % (Auto) 23.1 % 06/10/25 17:52 Gem % (Auto) 9.2 % 06/10/25 17:52 Eos % (Auto) 3.9 % 06/10/25 17:52 Baso % (Auto) 0.8 % 06/10/25 17:52 Neut # (Auto) 6.61 10^3/uL (1.8-7.7) 06/10/25 17:52 Lymph # (Auto) 2.4 10^3/uL (0.8-4.8) 06/10/25 17:52 Gem # (Auto) 1.0 10^3/uL (0.2-0.9) H 06/10/25 17:52 Eos # (Auto) 0.4 10^3/uL (0.0-0.8) 06/10/25 17:52 Baso # (Auto) 0.1 10^3/uL (0.0-0.1) 06/10/25 17:52 Nucleated RBC % (auto) 0 % 06/10/25 17:52 Nucleated RBCs # 0.0 /100WBC 06/10/25 17:52 Sodium 143 mmol/L (136-145) 06/10/25 17:52 Potassium 3.8 mmol/L (3.5-5.1) 06/10/25 17:52 Chloride 105 mmol/L (98-107) 06/10/25 17:52 Carbon Dioxide 24 mmol/L (22-29) 06/10/25 17:52 Anion Gap 17.8 (5-19) 06/10/25 17:52 BUN 14 mg/dL (6-20) 06/10/25 17:52 Creatinine 0.7 mg/dL (0.5-0.9) 06/10/25 17:52 GFR Calculation 88.2 mL/min (90-130) L 06/10/25 17:52 Glucose 86 mg/dL (65-115) 06/10/25 17:52 Calculated Osmolality 296 mOsm/kg (285-295) H 06/10/25 17:52 Calcium 9.5 mg/dL (8.5-10.5) 06/10/25 17:52 Total Bilirubin 0.9 mg/dL (0.15-1.2) 06/10/25 17:52 AST 13 U/L (0-32) 06/10/25 17:52 ALT 13 U/L (0-33) 06/10/25 17:52 Alkaline Phosphatase 83 U/L (35-105) 06/10/25 17:52 Total Protein 7.4 g/dL (6.6-8.7) 06/10/25 17:52 Albumin 4.6 g/dL (3.5-5.2) 06/10/25 17:52 Globulin 2.8 g/dL (1.3-4.6) 06/10/25 17:52 All radiology interpretation(s) finalized by discharge Discharge Plan Discharge Patient Disposition: Home Clinical Impression: Cellulitis Qualifiers: Site of cellulitis: face Qualified Code(s): L03.211 - Cellulitis of face Condition: Stable Prescriptions: New clindamycin HCl [Cleocin HCl] 300 mg capsule 300 mg PO BID 7 Days Qty: 14 0RF No Action irbesartan-hydrochlorothiazide 150-12.5 mg tablet 1 tab PO DAILY albuterol sulfate [Ventolin HFA] 90 mcg/actuation HFA aerosol inhaler 1 inh inhalation ONCE PRN methylprednisolone [Medrol (Ba)] 4 mg tablets,dose pack See Rx Instructions .ROUTE .COMPLEX Qty: 21 0RF Rx Instructions: orally per package directions Discharge Orders: Discharge ED (Routine); Ordered 06/10/25 Ordered By: Chelsey Cesar Referrals: Trevor Dean MD [Primary Care Provider, [facility]] Discharge Diet: Advance as tolerated Discharge Activity: Increase activity as tolerated Patient Instructions: Cellulitis (ED), Opioid Safety, Pain Management, Patient Portal & Manuel Instructions Activity Restrictions/Additional Instructions: Please keep your follow up appointment as scheduled Return to the ER with any worsening of symptoms or concerns Take medications as prescribed Print Language: Arabic Coding Level of Care Code ED Music Video Producer for Sachin Lozada
[2025-06-10 21:45] VITALS: BP 148/93; PULSE 73; RESP 18; TEMP 36.7; O2SAT 97
== END 2025-06-10 21:46 | disposition home or self-care (01) ==
PROVIDERS: Emergency Provider Registered Nurse; PCP Family Medicine
DX: L03.211 Cellulitis of face (principal); M94.0 Chondrocostal junction syndrome [Tietze]; F17.210 Nicotine dependence, cigarettes, uncomplicated
CPT/HCPCS: 70491; 80053; 85025; 99285; J9999

== ENCOUNTER 2025-08-23 10:18 | Emergency (ER) | payer MEDICARE, MEDICAID, SELFPAY ==
[2025-08-23 10:47] VITALS: BP 121/79; PULSE 76; RESP 19; TEMP 36.7; O2SAT 98; BMI 24.3
[2025-08-23 10:55] LABS: Hematocrit 46.4 % (36-47); Hemoglobin 16.00 g/dL (11.27-16.99); Mean Corpuscular HGB Conc 34.5 g/dL (30-55); Mean Corpuscular Hemoglobin 30.8 pg (27-33); Mean Corpuscular Volume 89.4 fl (85-98); Nucleated Red Blood Cells % 0 %; Platelet Count 265 10^3/cmm (157-399); Red Blood Count 5.19 10^6/uL (3.85-5.65); White Blood Count 8.04 10^3/uL (3.29-11.43)
--- NOTE | 2025-08-23 10:58 | CT_ITS ---
WS: [id number] CT ABDOMEN AND PELVIS NONCONTRAST HISTORY: flank pain, LEFT TECHNIQUE: Imaging performed through the abdomen and pelvis. Coronal and sagittal reformats are submitted. All CT scans at [facility] use at least one of these dose optimization techniques: automated exposure control; mA and/or kV adjustment per patient size (includes targeted exams where dose is matched to clinical indication); or iterative reconstruction. DLP: 573.65 mGy.cm COMPARISON: 07/21/2024 Lower thorax: Small hiatal hernia. Otherwise negative. Liver: Normal size liver. No mass or bile duct dilatation. Gallbladder: Prior cholecystectomy. Common bile duct is mildly dilated to 10 mm which is probably related to the postcholecystectomy. Pancreas: Normal size pancreas. Very minimally prominent pancreatic duct is similar to the prior study. No mass identified on this unenhanced exam. Spleen: Normal. Adrenal glands: Normal. No mass. Right kidney: Normal size kidney with no mass or hydronephrosis. Left kidney: Normal size kidney. No obstruction. Tiny calcification lower pole measures 2 mm. LEFT ureter is not obstructed. There is several small calcifications adjacent to the distal ureter but these appear to be external to the ureter and phleboliths. Aorta: Normal abdominal aorta, no aneurysm or atherosclerosis. No free fluid, intraperitoneal air or significant lymphadenopathy. GI tract: Nondistended stomach. No small bowel obstruction. No evidence for appendicitis. Moderate diffuse constipation. There is mild colonic wall thickening involving the sigmoid to 6 mm. Within the area of soft tissue thickening there are a few tiny high density deposits which may be calcifications. Cannot exclude foreign body material. No colonic perforation. There is intraluminal fecal material present. Very minimal adjacent inflammation. There is no abscess. No diverticulitis identified in this location. Abdominal wall: Small umbilical hernia contains fat only. Pelvis: Prior hysterectomy. No free fluid or adenopathy. Negative urinary bladder. Osseous structures: Unremarkable. CT/CT kidney stone [id number] IMPRESSION: 1. No renal obstruction. 2. Nonobstructing 2 mm calcification lower pole LEFT kidney. 3. Short segment sigmoid wall thickening to 6 mm with minimal adjacent inflamm ation. There are a few associated tiny foci of increased density which may be m edicinal debris or ingested foreign material. 4. No GI tract obstruction. 5. Small hiatal hernia. 6. Mild increase in pericardial thickening. 7. Prior cholecystectomy. 8. No ascites or abscess.
--- NOTE | 2025-08-23 11:01 | W.ED.ABDPA2 ---
HPI - Abdominal Pain General: Chief Complaint: Abdominal Pain Stated Complaint: abd pain Time Seen by Provider: 08/23/25 10:51 History of Present Illness: 50-year-old female who presents emergency planing is progressively worsening left flank pain over the last 3 days. Denies any hematuria history of renal stones in the past she states this feels similar. She has not had any fever sweats or chills no diarrhea she has had some nausea or vomiting she has not noticed any hematuria. Patient is writhing in pain on presentation to the ED. Associated Symptoms: Denies chills, dysuria and fever(s) Related Data Home Medications ?Medication ?Instructions ?Recorded ?Confirmed irbesartan 150 1 tab PO DAILY 02/27/24 08/23/25 mg-hydrochlorothiazide 12.5 mg tablet Previous Rx's ?Medication ?Instructions ?Recorded ciprofloxacin HCl 500 mg tablet 500 mg PO BID #14 tabs 08/23/25 (Cipro) hydrocodone 5 mg-acetaminophen 325 1 tab PO Q6H PRN pain #10 tabs 08/23/25 mg tablet metronidazole 500 mg tablet 500 mg PO BID 7 days #14 tabs 08/23/25 promethazine 25 mg tablet 25 mg PO Q6H PRN nausea and 08/23/25 vomiting #20 tabs Allergies Allergy/AdvReac Type Severity Reaction Status Date / Time ondansetron Allergy ADR-Nausea Verified 02/27/25 20:29 Penicillins AdvReac Intermediate Hives Verified 02/27/25 20:29 Review of Systems Const: Denies: fever(s) or chills Card: Denies: chest pain Resp: Denies: dyspnea GI: Denies: abdominal pain : Denies: dysuria, urinary frequency or urinary urgency Musc: Denies: neck pain or back pain Skin/Breast: Denies: rash PFSH ED PFSH: Medical History Thyroid disease Breast mass in female Surgical History Hx of excision of mass 09/15/24 Excision of subcutaneous back mass x 2- Dr García H/O neck surgery H/O: hysterectomy Family History Other Cancer Diabetes Hyperlipidemia Hypertension Denies family history of CAD (coronary artery disease) Clotting disorder Dementia Psychiatric illness Chronic kidney disease (CKD) Suicide Anesthesia complication Bleeding disorder Family history of premature coronary artery disease Lung disease Stroke Social History Smoking and tobacco/nicotine status: current every day tobacco/nicotine user cigarettes Packs smoked per day: 1 Years cigarettes smoked: 35 Second hand smoke exposure: No Alcohol intake: never Substance/Drug Use: former Household members: none Physical Exam Const: COMMON NORMALS: no acute distress GENERAL APPEARANCE: cooperative and comfortable ORIENTATION/CONSCIOUSNESS: Yes awake, Yes oriented to person, Yes oriented to place and Yes oriented to time HENMT: COMMON NORMALS: normocephalic, atraumatic and hearing grossly normal bilaterally HEAD & SCALP: normocephalic and atraumatic Resp: COMMON NORMALS: normal respiratory effort, No retractions, No use of accessory muscles and clear to auscultation bilaterally AUSCULTATION: clear to auscultation bilaterally Cardio: COMMON NORMALS: regular rate, regular rhythm and No murmurs present (Cardio) RATE: regular rate RHYTHM: regular rhythm GI: COMMON NORMALS: Soft to palpation and No hepatosplenomegaly present AUSCULTATION: Yes normoactive bowel sounds PALPATION: Yes Soft to palpation, No Tenderness to palpation present (GI), No Guarding due to palpation present (GI) and Yes No hepatosplenomegaly present Extremity: COMMON NORMALS: normal to inspection, capillary refill normal, no clubbing, cyanosis or edema, no calf tenderness and no pedal edema Neuro: SENSORIUM/ORIENTATION: Yes oriented to person, Yes oriented to place and Yes oriented to time Skin: COMMON NORMALS: no rashes or lesions noted GENERAL SKIN EXAM: no rashes or lesions noted Course Vital Signs: Vital signs: Vital Signs Temperature 98.1 F 08/23/25 10:47 Pulse Rate 75 08/23/25 13:05 Respiratory Rate 22 H 08/23/25 11:33 Blood Pressure 141/83 08/23/25 13:05 Pulse Oximetry 94 08/23/25 13:05 Oxygen Delivery Me thod Room Air 08/23/25 10:47 MDM - Abdominal Pain Medical Decision Making Patient has a focal area of inflammation in the CT I discussed Dr. Galvan. Could be focal area of diverticulitis which COVID her symptoms and the location of the diarrhea. Does not have any signs of having had a kidney stone recently. There is no signs hematuria. There is no elevation of white count. Patient's pain is better we will discharge her home Lab Data 08/23/25 10:38 08/23/25 10:38 Labs/Radiology: Radiology Impressions Abdomen/Pelvis CT 08/23/25 10:58 IMPRESSION: 1. No renal obstruction. 2. Nonobstructing 2 mm calcification lower pole LEFT kidney. 3. Short segment sigmoid wall thickening to 6 mm with minimal adjacent inflammation. There are a few associated tiny foci of increased density which may be medicinal debris or ingested foreign material. 4. No GI tract obstruction. 5. Small hiatal hernia. 6. Mild increase in pericardial thickening. 7. Prior cholecystectomy. 8. No ascites or abscess. Laboratory Results WBC 8.04 10^3/uL (3.29-11.43) 08/23/25 10:38 RBC 5.19 10^6/uL (3.85-5.65) 08/23/25 10:38 Hgb 16.00 g/dL (11.27-16.99) 08/23/25 10:38 Hct 46.4 % (36-47) 08/23/25 10:38 MCV 89.4 fl (85-98) 08/23/25 10:38 MCH 30.8 pg (27-33) 08/23/25 10:38 MCHC 34.5 g/dL (30-55) 08/23/25 10:38 RDW 13.6 % (12.1-15.1) 08/23/25 10:38 Plt Count 265 10^3/cmm (157-399) 08/23/25 10:38 MPV 10.9 fL (7.4-10.4) H 08/23/25 10:38 Neut % (Auto) 54.1 % 08/23/25 10:38 Lymph % (Auto) 29.9 % 08/23/25 10:38 [place] % (Auto) 10.2 % 08/23/25 10:38 Eos % (Auto) 4.9 % 08/23/25 10:38 Baso % (Auto) 0.7 % 08/23/25 10:38 Neut # (Auto) 4.35 10^3/uL (1.8-7.7) 08/23/25 10:38 Lymph # (Auto) 2.4 10^3/uL (0.8-4.8) 08/23/25 10:38 [place] # (Auto) 0.8 10^3/uL (0.2-0.9) 08/23/25 10:38 Eos # (Auto) 0.4 10^3/uL (0.0-0.8) 08/23/25 10:38 Baso # (Auto) 0.1 10^3/uL (0.0-0.1) 08/23/25 10:38 Nucleated RBC % (auto) 0 % 08/23/25 10:38 Nucleated RBCs # 0.0 /100WBC 08/23/25 10:38 Sodium 143 mmol/L (136-145) 08/23/25 10:38 Potassium 4.1 mmol/L (3.5-5.1) 08/23/25 10:38 Chloride 105 mmol/L (98-107) 08/23/25 10:38 Carbon Dioxide 26 mmol/L (22-29) 08/23/25 10:38 Anion Gap 16.1 (5-19) 08/23/25 10:38 BUN 15 mg/dL (6-20) 08/23/25 10:38 Creatinine 0.8 mg/dL (0.5-0.9) 08/23/25 10:38 GFR Calculation 75.3 mL/min (90-130) L 08/23/25 10:38 Glucose 89 mg/dL (65-115) 08/23/25 10:38 Calculated Osmolality 296 mOsm/kg (285-295) H 08/23/25 10:38 Calcium 9.9 mg/dL (8.5-10.5) 08/23/25 10:38 Total Bilirubin 1.0 mg/dL (0.15-1.2) 08/23/25 10:38 AST 20 U/L (0-32) 08/23/25 10:38 ALT 22 U/L (0-33) 08/23/25 10:38 Alkaline Phosphatase 77 U/L (35-105) 08/23/25 10:38 Total Protein 7.8 g/dL (6.6-8.7) 08/23/25 10:38 Albumin 4.7 g/dL (3.5-5.2) 08/23/25 10:38 Globulin 3.1 g/dL (1.3-4.6) 08/23/25 10:38 Lipase 41 U/L (13-60) 08/23/25 10:38 Urine Color Yellow (Yellow) 08/23/25 10:55 Urine Appearance Clear (CLEAR) 08/23/25 10:55 Urine pH 6.0 (5-7) 08/23/25 10:55 Ur Specific [place] 1.012 (1.005-1.030) 08/23/25 10:55 Urine Protein Negative (Negative) 08/23/25 10:55 Urine Glucose (UA) Negative (Normal) 08/23/25 10:55 Urine Ketones Negative (Negative) 08/23/25 10:55 Urine Blood Negative (Negative) 08/23/25 10:55 Urine Nitrate Negative (Negative) 08/23/25 10:55 Urine Bilirubin Negative (Negative) 08/23/25 10:55 Urine Urobilinogen 0.2 mg/dL (Negative) 08/23/25 10:55 Ur Leukocyte Esterase Negative (Negative) 08/23/25 10:55 Amorphous Sediment Not Reportable 08/23/25 10:55 All radiology interpretation(s) finalized by discharge Discharge Plan Discharge Patient Disposition: Home Clinical Impression: Diverticulitis Condition: Stable Prescriptions: New hydrocodone-acetaminophen 5-325 mg tablet 1 tab PO Q6H PRN (Reason: pain) Qty: 10 0RF promethazine 25 mg tablet 25 mg PO Q6H PRN (Reason: nausea and vomiting) Qty: 20 0RF ciprofloxacin HCl [Cipro] 500 mg tablet 500 mg PO BID Qty: 14 0RF metronidazole 500 mg tablet 500 mg PO BID 7 Days Qty: 14 0RF No Action irbesartan-hydrochlorothiazide 150-12.5 mg tablet 1 tab PO DAILY Discharge Orders: Discharge ED (Routine); Ordered 08/23/25 Ordered By: Marek Portillo Referrals: Trevor Dean MD [Primary Care Provider, Family Practice] Discharge Diet: Clear Liquid Discharge Activity: Resume usual activity Patient Instructions: Opioid Safety, Pain Management, Patient Portal & Manuel Instructions Activity Restrictions/Additional Instructions: [facility]. It is very important that you follow up as instructed or that you return to the Emergency Department should you have concerns or if your condition changes or worsens in any way. Emergency department visits are focused on emergent conditions, in some cases you may require further evaluation on an outpatient basis. You were seen in the emergency room with complaint of left lower quadrant abdominal pain. CT shows questionable inflammation area in the sigmoid colon. There is no perforation or abscess. Recommend that you start oral antibiotics 1 pill twice a day of both Cipro and Flagyl, you can also use hydrocodone and promethazine as needed for pain and nausea. You should follow-up with your primary care doctor within the next few weeks to review the CT and your previous colonoscopies. You may need to have a repeat colonoscopy. (Please note that included in your discharge packet is information concerning opioid safety and pain management. This information is given to all patients were discharged from the ER regardless of their discharge diagnosis or the medicines they usually take or are prescribed.) Print Language: Lithuanian Coding Level of Care Code ED Car [facility]pper for Sachin Lozada
[2025-08-23 11:02] LABS: Add Urine Microscopic? NO
[2025-08-23 11:05] LABS: Alanine Aminotransferase 22 U/L (0-33); Albumin Level 4.7 g/dL (3.5-5.2); Alkaline Phosphatase 77 U/L (35-105); Anion Gap 16.1 (5-19); Aspartate Amino Transferase 20 U/L (0-32); Blood Urea Nitrogen 15 mg/dL (6-20); Calcium 9.9 mg/dL (8.5-10.5); Carbon Dioxide 26 mmol/L (22-29); Chloride 105 mmol/L (98-107); Creatinine Clr Calc Pharmacy 87.4874; Globulin 3.1 g/dL (1.3-4.6); Glucose 89 mg/dL (65-115); Lipase 41 U/L (13-60); Osmolality Calculated 296 mOsm/kg (285-295); Potassium 4.1 mmol/L (3.5-5.1); Sodium 143 mmol/L (136-145); Total Protein 7.8 g/dL (6.6-8.7)
[2025-08-23 11:14] LABS: Glucose Urine UA Negative (Normal); Nitrate Urine Negative (Negative); Specific Gravity, Urine 1.012 (1.005-1.030)
[2025-08-23 11:26] LABS: Charge for UA Resulting for Rev
[2025-08-23 11:33] VITALS: RESP 22
[2025-08-23] MEDS: morphine 4 mg/mL SDV 1 mL IVP (11:33)
[2025-08-23 11:54] VITALS: BP 118/86; PULSE 65; O2SAT 92
[2025-08-23 12:00] VITALS: BP 113/71; PULSE 62; O2SAT 94
[2025-08-23 12:30] VITALS: BP 133/95; PULSE 67; O2SAT 90
[2025-08-23 13:05] VITALS: BP 141/83; PULSE 75; O2SAT 94
== END 2025-08-23 13:05 | disposition home or self-care (01) ==
PROVIDERS: Physician Assistant; Emergency Provider Family Medicine; PCP Family Medicine
DX: K57.32 Diverticulitis of large intestine without perforation or abscess without bleeding (principal); F17.210 Nicotine dependence, cigarettes, uncomplicated
CPT/HCPCS: 36415; 74176; 80053; 81003; 83690; 85025; 96374; 96375; 99285; J0780; J1885; J2270